=== PATIENT | male | born 1965 | race Caucasian/White ===

== ENCOUNTER 2016-08-16 21:50 | Emergency (ER) | payer OTHER ==
[~2016-08-16] VITALS: Ht 172.7 cm; Wt 124.7 kg
[~2016-08-16 21:50] MED LIST: ASCA500 PO; ASPCH81 PO; CRAN1CAP15 PO; GLC500 PO; LEVO50TA PO; LISI40TA PO; MULT-506 PO; SIMV20TA2 PO
[2016-08-16 21:53] VITALS: TEMP 36.8; Ht 172.7 cm; Wt 124.7 kg
[2016-08-16] MEDS ORDERED: SODIUM CHLORIDE 0.9% 500ML 500 ML IV STA (22:18)
[2016-08-16] MEDS ORDERED: AMLO-110 PO (22:21)
[2016-08-16] MEDS ORDERED: METF-384 PO (22:21)
--- NOTE | 2016-08-16 22:23 | EMERGENCY ROOM VISIT NOTE ---
History First contact with patient: 21:59 Chief Complaint: HEMATURIA Stated Complaint: UNABLE TO VOID W/O CATHETER, DARK BLOOD IN URINE History of Present Illness The patient is a 51 year old male who presents to the Emergency Department by private vehicle for evaluation of a possible urinary tract infection. Patient reports a history of bladder issues secondary to diagnosis of diabetes. He follows with urology at [facility]. He reports that he self caths daily to help void his bladder completely. He reports that today he had 2 episodes of diarrhea while at work. He had some mild chills. He attempted to self cath this evening approximately 8 PM and had very dark urine as well as gianna blood. He was concerned as this is consistent with a previous episode of UTI. The patient rates his current discomfort as 4/10. He denies any fevers, headaches, dizziness, lightheadedness, chest pain, palpitations, shortness of breath, abdominal pain, hematochezia, or melena. Review of Systems A complete 10-point Review of Systems was discussed with the patient, with pertinent positives and negatives listed in the History of Present Illness. All remaining Review of Systems questions can be considered negative unless otherwise specified. Social History Smoking Status: Never Smoker Smokeless Tobacco Use: No Drug Use: none Marital Status: Occupation Status: employed Current/Historical Medications Scheduled Amlodipine (Norvasc), 5 MG PO DAILY Aspirin (Aspirin Tab-Chewable *), 81 MG PO DAILY Ciprofloxacin Hcl (Cipro), 500 MG PO BID Levothyroxine Sodium (Synthroid), 50 MCG PO DAILY Lisinopril (Zestril), 40 MG PO DAILY Metformin Hcl (Glucophage), 1,000 MG PO BID Simvastatin (Zocor), 20 MG PO HS Allergies Coded Allergies: No Known Allergies (Unverified , 08/16/16) Physical Exam Vital Signs Date Time Temp Pulse Resp B/P Pulse Ox O2 Delivery O2 Flow Rate FiO2 08/17/16 01:47 100 18 130/89 97 Room Air 08/16/16 23:50 102 20 138/99 96 Room Air 08/16/16 21:53 36.8 118 18 144/85 98 Room Air Pain Rating (0-10): 4 Physical Exam VITAL SIGNS - Vital signs and nursing notes were reviewed. GENERAL - 51-year-old male appearing his stated age who is in no acute distress. Communicates well with provider and answers questions appropriately. LUNGS - Chest wall symmetric without accessory muscle use, intercostals retractions, or central cyanosis. Normal vesicular breath sounds CTA B/L. No wheezes, rales, or rhonchi appreciated. CARDIAC - RRR with S1/S2. No murmur, rubs, or gallops appreciated. ABDOMEN - Abdominal contour obese and without pulsations or visible masses. BS normoactive all four quadrants. No tenderness to palpation appreciated throughout. No guarding. No Rebound Tenderness. Negative Rovsing's. Negative Prabhakar's. No palpable masses, hepatosplenomegaly, or ascites noted. PSYCH - A&Ox3 and cooperates fully with examiner. Pt is very pleasant and interacts well with examiner. Medical Decision & Procedures Laboratory Results 08/16/16 22:52 Red Blood Count 4.34, Mean Corpuscular Volume 85.5, Mean Corpuscular Hemoglobin 29.0, Mean Corpuscular Hemoglobin Concent 34.0, Mean Platelet Volume 10.1, Neutrophils (%) (Auto) 80.8, Lymphocytes (%) (Auto) 12.3, Monocytes (%) (Auto) 5.0, Eosinophils (%) (Auto) 0.7, Basophils (%) (Auto) 0.1, Neutrophils # (Auto) 7.68, Lymphocytes # (Auto) 1.17, Monocytes # (Auto) 0.48, Eosinophils # (Auto) 0.07, Basophils # (Auto) 0.01 08/16/16 22:52 Test 08/16/16 22:52 08/17/16 00:15 White Blood Count 9.51 K/uL (4.8-10.8) Red Blood Count 4.34 M/uL (4.7-6.1) Hemoglobin 12.6 g/dL (14.0-18.0) Hematocrit 37.1 % (42-52) Mean Corpuscular Volume 85.5 fL (80-100) Mean Corpuscular Hemoglobin 29.0 pg (25-34) Mean Corpuscular Hemoglobin Concent 34.0 g/dl (32-36) Platelet Count 201 K/uL (130-400) Mean Platelet Volume 10.1 fL (7.4-10.4) Neutrophils (%) (Auto) 80.8 % Lymphocytes (%) (Auto) 12.3 % Monocytes (%) (Auto) 5.0 % Eosinophils (%) (Auto) 0.7 % Basophils (%) (Auto) 0.1 % Neutrophils # (Auto) 7.68 K/uL (1.4-6.5) Lymphocytes # (Auto) 1.17 K/uL (1.2-3.4) Monocytes # (Auto) 0.48 K/uL (0.11-0.59) Eosinophils # (Auto) 0.07 K/uL (0-0.5) Basophils # (Auto) 0.01 K/uL (0-0.2) RDW Standard Deviation 43.8 fL (36.4-46.3) RDW Coefficient of Variation 13.9 % (11.5-14.5) Immature Granulocyte % (Auto) 1.1 % Immature Granulocyte # (Auto) 0.10 K/uL (0.00-0.02) Anion Gap 12.0 mmol/L (3-11) Est Creatinine Clear Calc Drug Dose 91.5 ml/min Estimated GFR () 79.5 Estimated GFR (Non- 68.6 BUN/Creatinine Ratio 20.0 (10-20) Calcium Level 8.8 mg/dl (8.5-10.1) Total Bilirubin 0.4 mg/dl (0.2-1) Aspartate Amino Transf (AST/SGOT) 16 U/L (15-37) Alanine Aminotransferase (ALT/SGPT) 31 U/L (12-78) Alkaline Phosphatase 82 U/L (45-117) Total Protein 7.8 gm/dl (6.4-8.2) Albumin 3.9 gm/dl (3.4-5.0) Globulin 3.9 gm/dl (2.5-4.0) Albumin/Globulin Ratio 1.0 (0.9-2) Urine Color YELLOW Urine Appearance CLOUDY (CLEAR) Urine pH 5.0 (4.5-7.5) Urine Specific [place] 1.002 (1.000-1.030) Urine Protein 2+ (NEG) Urine Glucose (UA) NEG (NEG) Urine Ketones NEG (NEG) Urine Occult Blood 3+ (NEG) Urine Nitrite NEG (NEG) Urine Bilirubin NEG (NEG) Urine Urobilinogen NEG (NEG) Urine Leukocyte Esterase MODERATE (NEG) Urine WBC (Auto) >30 /hpf (0-5) Urine RBC (Auto) 5-10 /hpf (0-4) Urine Hyaline Casts (Auto) 5-10 /lpf (0-5) Urine Epithelial Cells (Auto) 0-5 /lpf (0-5) Urine Bacteria (Auto) NEG (NEG) Urine Pathogenic Casts 0-3 WBC CASTS /lpf (0) Medications Administered Medications (Trade) Dose Ordered Sig/Blade Route Start Time Stop Time Status Last Admin Dose Admin Sodium Chloride (Nss 500ml) 500 ml @ 999 mls/hr Q31M STAT IV 08/16/16 22:18 08/16/16 22:48 DC 08/16/16 23:16 999 MLS/HR Ciprofloxacin (Cipro Tab) 500 mg NOW STAT PO 08/17/16 01:31 08/17/16 01:32 DC 08/17/16 01:44 500 MG Ciprofloxacin (Cipro 500MG Home Pack) 1 homepack UD ONCE PO 08/17/16 01:45 08/17/16 01:46 DC 08/17/16 01:44 1 HOMEPACK ED Course Patient was seen and evaluated by myself. Labs were drawn, saline lock in place. The patient was hydrated with a 500 mL normal saline bolus. Laboratory results demonstrate no acute leukocytosis, significant anemia, or bandemia. The patient has no significant electrolyte abnormalities. Urinalysis concerning for UTI and blood. The patient was treated with oral Cipro. He was encouraged to follow-up with his urologist from today's visit. He was educated on worrisome symptoms for return visit to the emergency department. Patient discharged home afebrile and in good condition. Medical Decision Given the patient's presentation and stated complaint, I did elect to perform the above-mentioned workup. The patient complains of dark urine with mild hematuria. He self caths daily. He has no pain. He has no fever leukocytosis. He has no abdominal discomfort or tenderness to palpation. Urinalysis concerning for possible infection from catheter specimen. Patient was treated with oral Cipro. Urine culture is pending. The patient will follow -up with his urologist from today's visit. He'll return for any changing/ worsening symptoms. Patient discharged home afebrile and in good condition. In the evaluation and treatment of this patient, the following differential diagnoses were considered: Bladder Cancer, Chlamydial Genitourinary Infection, Cystitis, Herpes Simplex, Interstitial Cystitis, Pyelonephritis, Urethritis. Impression Primary Impression: Urinary tract infection associated with catheterization of urinary tract Departure Information Dispostion Home / Self-Care Condition GOOD Prescriptions Ciprofloxacin Hcl (CIPRO) 500 Mg Tab 500 MG PO BID for 10 Days, #20 TAB Prov: Deyvi Mason PA-C 08/17/16 Referrals Gianna Altamirano M.D. (PCP) Patient Instructions My [facility], UTI Additional Instructions You have been treated in the Emergency Department for a Urinary Tract Infection (UTI). You have been prescribed Cipro to be taken as prescribed. This is an antibiotic. All antibiotics have the potential to cause diarrhea. Stop this medication and contact a medical provider if you were to develop any significant adverse side effects including: wheezing, shortness of breath, passing out, vomiting, or a diffuse rash. Always take antibiotics as directed and COMPLETE the ENTIRE course regardless of the improvement of your symptoms. Drink plenty of water and stay well hydrated. As with any trip to the Emergency Department, you should follow-up with your Primary Care Provider from today's visit. Return to the emergency department if your symptoms persist despite treatment plan outlined above or if the following symptoms occur: increased fevers, chills , low back pain, nausea/vomiting, or blood in your urine. Problem Qualifiers Primary Impression: Urinary tract infection associated with catheterization of urinary tract Indwelling urinary catheter type: unspecified Encounter type: initial encounter Qualified Codes: T83.511A - Infection and inflammatory reaction due to indwelling urethral catheter, initial encounter; N39.0 - Urinary tract infection, site not specified
[2016-08-16 23:10] LABS: BASO % 0.1 %; BASO ABS # 0.01 K/uL (0-0.2); COMPLETE YES; EOS % 0.7 %; HEMATOCRIT 37.1 % (42-52); IG% 1.1 %; LYMPH % 12.3 %; LYMPH ABS # 1.17 K/uL (1.2-3.4); MEAN CELL VOLUME 85.5 fL (80-100); MEAN PLATELET VOLUME 10.1 fL (7.4-10.4); NEUT % 80.8 %; PLATELET COUNT 201 K/uL (130-400); RED BLOOD COUNT 4.34 M/uL (4.7-6.1); WHITE BLOOD COUNT 9.51 K/uL (4.8-10.8)
[2016-08-16 23:27] LABS: CALCIUM 8.8 mg/dl (8.5-10.1); CREATININE 1.2 mg/dl (0.60-1.40); POTASSIUM 4.4 mmol/L (3.5-5.1)
[2016-08-17 01:02] LABS: URINE APPEARANCE CLOUDY (CLEAR); URINE BILIRUBIN NEG (NEG); URINE COLOR YELLOW; URINE EPITHELIAL CELL AUTO 0-5 /lpf (0-5); URINE NITRITE NEG (NEG); URINE SPECIFIC GRAVITY 1.002 (1.000-1.030); UROBILINOGEN NEG (NEG); ZZURINE CULT IF INDIC CATH YES
[2016-08-17 01:04] LABS: MANUAL MICROSCOPIC REQUIRED? NO; REVIEW REQ? YES
[2016-08-17 01:26] LABS: URINE PATH CASTS 0-3 WBC CASTS /lpf (0)
[2016-08-17] MEDS ORDERED: CIPROFLOXACIN 500 MG TAB PO STA (01:31)
[2016-08-17] MEDS ORDERED: CIPR-255 PO (01:43)
[2016-08-17] MEDS ORDERED: CIPROFLOXACIN 500MG HOME PACK PO ONE (01:45)
[2016-08-17 01:47] VITALS: BP 130/89; PULSE 100; O2SAT 97
--- NOTE | 2016-08-20 11:36 | Pharmacy Progress Note ---
ED Pharmacist Culture FollowUp Date of Service: Aug 20, 2016. Patient was sent home with a prescription for Ciprofloxacin 500mg PO BID x 10 days for complicated UTI, which should cover the Klebsiella oxytoca growing from the patient's URINE culture. No action required.
== END 2016-08-17 01:57 | disposition home or self-care (01) ==
LOC: C.EDB 21:51
DX: T83.511A Infection and inflammatory reaction due to indwelling urethral catheter, initial encounter (principal); Z79.82 Long term (current) use of aspirin; Z79.899 Other long term (current) drug therapy; R19.7 Diarrhea, unspecified; Y84.6 Urinary catheterization as the cause of abnormal reaction of the patient, or of later complication, without mention of misadventure at the time of the procedure

== ENCOUNTER 2016-08-19 23:56 | Emergency (ER) | payer OTHER ==
[~2016-08-19] VITALS: Ht 172.7 cm; Wt 121.4 kg
[~2016-08-19 23:56] MED LIST changes: +AMLO-110 PO; -ASCA500 PO; +CIPR-255 PO; -CRAN1CAP15 PO; -GLC500 PO; +METF-384 PO; -MULT-506 PO
[2016-08-20 00:02] VITALS: TEMP 36.8; Ht 172.7 cm; Wt 121.4 kg
[2016-08-20] MEDS ORDERED: ASPCH81X PO (00:07)
[2016-08-20] MEDS ORDERED: SODIUM CHLORIDE 0.9% 500ML 500 ML IV STA (00:17)
[2016-08-20] MEDS ORDERED: CEFTRIAXONE SOD INJ 1 GM ADDVIAL IV STA (00:17)
[2016-08-20 00:45] LABS: BASO % 0.3 %; BASO ABS # 0.03 K/uL (0-0.2); COMPLETE YES; EOS % 2.1 %; IG% 1.3 %; LYMPH % 13.7 %; MEAN CELL VOLUME 85.7 fL (80-100); MEAN CORPUSCULAR HEMOGLOBIN 29.5 pg (25-34); MEAN CORPUSCULAR HGB CONC 34.4 g/dl (32-36); MEAN PLATELET VOLUME 9.5 fL (7.4-10.4); MONO % 7.2 %; NEUT % 75.4 %; PLATELET COUNT 240 K/uL (130-400); RED BLOOD COUNT 4.55 M/uL (4.7-6.1); WHITE BLOOD COUNT 10.23 K/uL (4.8-10.8)
[2016-08-20 01:02] LABS: BUN/CREATININE RATIO 16.3 (10-20); CALCIUM 9.2 mg/dl (8.5-10.1); CREATININE 1.2 mg/dl (0.60-1.40); POTASSIUM 4.2 mmol/L (3.5-5.1)
[2016-08-20 01:22] LABS: MANUAL MICROSCOPIC REQUIRED? NO; REVIEW REQ? NO; URINE APPEARANCE CLOUDY (CLEAR); URINE BILIRUBIN NEG (NEG); URINE COLOR YELLOW; URINE NITRITE NEG (NEG); URINE PH 6.5 (4.5-7.5); URINE SPECIFIC GRAVITY 1.019 (1.000-1.030); UROBILINOGEN NEG (NEG); ZZURINE CULT IF INDIC CATH NO
[2016-08-20] MEDS ORDERED: SEPTRA DS HOME PACK 1 EA VIAL PO ONE (01:30)
--- NOTE | 2016-08-20 01:30 | EMERGENCY ROOM VISIT NOTE ---
History First contact with patient: 00:06 Chief Complaint: URINARY SYMPTOMS Stated Complaint: URINARY SYMPTOMS STILL OCCURRING FROM PREV VISIT Nursing Triage Summary: Pt reports he was here Friday and dx with UTI. Pt self cath's and when he cathed today it was dark and he noticed blood. History of Present Illness The patient is a 51 year old male who presents to the Emergency Room with complaints of urinary problems that are getting worse since starting Cipro 3 days ago for UTI. He has had Cipro a few times in the past for recurrent bladder infections. Patient does urinate but also has to self cath. Patient states the antibiotic is giving him some diarrhea. Blood sugar was 96 today. Patient denies chest pain, dyspnea, fever, back pain, nausea, vomiting, light headedness or dizziness. He is tolerating by mouth fluids and food. Patient has appointment this with urology for his symptoms by his PCP. He cannot recall the person's name. Review of Systems See HPI for pertinent positives & negatives. A total of 10 systems reviewed and were otherwise negative. Past Medical/Surgical History Diabetes Social History Smoking Status: Unknown if Ever Smoked Drug Use: none Marital Status: Occupation Status: employed Current/Historical Medications Scheduled Amlodipine (Norvasc), 5 MG PO DAILY Aspirin (Aspirin Chewable), 81 MG PO DAILY Ciprofloxacin Hcl (Cipro), 500 MG PO BID Levothyroxine Sodium (Synthroid), 50 MCG PO DAILY Lisinopril (Zestril), 40 MG PO DAILY Metformin Hcl (Glucophage), 1,000 MG PO BID Simvastatin (Zocor), 20 MG PO HS Allergies Coded Allergies: No Known Allergies (Unverified , 08/16/16) Physical Exam Vital Signs Date Time Temp Pulse Resp B/P Pulse Ox O2 Delivery O2 Flow Rate FiO2 08/20/16 00:02 36.8 111 18 142/91 97 Room Air Physical Exam VITALS: Vitals are noted on the nurse's note and reviewed by myself. Vital signs tachycardic GENERAL: Pleasant male, in no acute distress, nondiaphoretic, well-developed well-nourished. SKIN: Capillary reflex less than 2 seconds. HEENT: Normocephalic. PERRLA. EOMI. Nares patent. Mucous membranes moist. Neck is supple without nuchal rigidity. HEART: Regular rate and rhythm LUNGS: Clear to auscultation bilaterally without wheezes, rales or rhonchi. No retractions or accessory muscle use. ABDOMEN: Positive bowel sounds x 4. Normal tympanic percussion. Soft, protuberant, obese, mild bladder tenderness and all other quadrants are nontender, without masses or organomegaly. Prabhakar sign negative. No guarding or rebound tenderness. No CVA tenderness MUSCULOSKELETAL: No gross musculoskeletal defects. . No calf tenderness. NEURO: Patient was alert and oriented to person place and time. Normal sensation to light and sharp touch. No focal neurological deficits. Medical Decision & Procedures Laboratory Results 08/20/16 00:30 Red Blood Count 4.55, Mean Corpuscular Volume 85.7, Mean Corpuscular Hemoglobin 29.5, Mean Corpuscular Hemoglobin Concent 34.4, Mean Platelet Volume 9.5, Neutrophils (%) (Auto) 75.4, Lymphocytes (%) (Auto) 13.7, Monocytes (%) (Auto) 7.2, Eosinophils (%) (Auto) 2.1, Basophils (%) (Auto) 0.3, Neutrophils # (Auto) 7.72, Lymphocytes # (Auto) 1.40, Monocytes # (Auto) 0.74, Eosinophils # (Auto) 0.21, Basophils # (Auto) 0.03 08/20/16 00:30 Test 08/20/16 00:30 08/20/16 00:45 White Blood Count 10.23 K/uL (4.8-10.8) Red Blood Count 4.55 M/uL (4.7-6.1) Hemoglobin 13.4 g/dL (14.0-18.0) Hematocrit 39.0 % (42-52) Mean Corpuscular Volume 85.7 fL (80-100) Mean Corpuscular Hemoglobin 29.5 pg (25-34) Mean Corpuscular Hemoglobin Concent 34.4 g/dl (32-36) Platelet Count 240 K/uL (130-400) Mean Platelet Volume 9.5 fL (7.4-10.4) Neutrophils (%) (Auto) 75.4 % Lymphocytes (%) (Auto) 13.7 % Monocytes (%) (Auto) 7.2 % Eosinophils (%) (Auto) 2.1 % Basophils (%) (Auto) 0.3 % Neutrophils # (Auto) 7.72 K/uL (1.4-6.5) Lymphocytes # (Auto) 1.40 K/uL (1.2-3.4) Monocytes # (Auto) 0.74 K/uL (0.11-0.59) Eosinophils # (Auto) 0.21 K/uL (0-0.5) Basophils # (Auto) 0.03 K/uL (0-0.2) RDW Standard Deviation 43.2 fL (36.4-46.3) RDW Coefficient of Variation 13.8 % (11.5-14.5) Immature Granulocyte % (Auto) 1.3 % Immature Granulocyte # (Auto) 0.13 K/uL (0.00-0.02) Anion Gap 12.0 mmol/L (3-11) Est Creatinine Clear Calc Drug Dose 90.2 ml/min Estimated GFR () 79.5 Estimated GFR (Non- 68.6 BUN/Creatinine Ratio 16.3 (10-20) Calcium Level 9.2 mg/dl (8.5-10.1) Urine Color YELLOW Urine Appearance CLOUDY (CLEAR) Urine pH 6.5 (4.5-7.5) Urine Specific [place] 1.019 (1.000-1.030) Urine Protein 3+ (NEG) Urine Glucose (UA) NEG (NEG) Urine Ketones NEG (NEG) Urine Occult Blood 3+ (NEG) Urine Nitrite NEG (NEG) Urine Bilirubin NEG (NEG) Urine Urobilinogen NEG (NEG) Urine Leukocyte Esterase TRACE (NEG) Urine WBC (Auto) 1-5 /hpf (0-5) Urine RBC (Auto) >30 /hpf (0-4) Urine Hyaline Casts (Auto) 1-5 /lpf (0-5) Urine Epithelial Cells (Auto) 10-20 /lpf (0-5) Urine Bacteria (Auto) NEG (NEG) Medications Administered Medications (Trade) Dose Ordered Sig/Blade Route Start Time Stop Time Status Last Admin Dose Admin Ceftriaxone Sodium 1 gm 1 gm NOW STAT IV 08/20/16 00:17 08/20/16 00:19 DC 08/20/16 00:49 1 GM Sodium Chloride (Nss 500ml) 500 ml @ 999 mls/hr Q31M STAT IV 08/20/16 00:17 08/20/16 00:47 DC 3/7/17 00:48 999 MLS/HR ED Course Prior records reviewed and summarized as above. Triage Nursing notes reviewed. The patient's history was concerning for urinary problems. Differential diagnosis: Etiologies such as UTI, pyelonephritis, urinary retention, urinary obstruction, renal colic, as well as others were entertained.. Physical examination: As above ER treatment provided: Bladder scan showed 150 mL's Rocephin, IV fluids On reassessment the patient felt better. Diagnostics interpreted by me: The labs revealed no worrisome leukocytosis. Mild hyperglycemia without DKA. Urine concerning for infection Pending urine culture shows gram-negative bacilli This appears to be UTI. Patient has had progressive symptoms despite being on antibiotics. He might have some resistance to Cipro. He was placed on Bactrim. He was advised to follow-up as scheduled with urology this week. Urine culture is still pending. He was given Rocephin in the ER. He is afebrile and nontoxic. No CVA tenderness. He was advised drink plenty of fluids and to follow-up family care in a few days or here in the ER sooner for back pain, fevers, vomiting, worsening signs or symptoms or as needed. He was advised to continue self cath. By the evaluation outlined above emergent etiologies such as pyelonephritis, renal colic, as well as others were deemed relatively unlikely. The pt informed about the findings as listed above. All questions were answered and pleased with the treatment. Return instructions were outlined and the patient was discharged in stable condition. Outpatient prescription management: Bactrim Referral: The patient was referred back to primary care physician for follow-up in 2 to 3 days for a recheck of the current condition. Case reviewed with my attending Medical Decision As above Impression Primary Impression: Urinary tract infection Departure Information Dispostion Home / Self-Care Condition GOOD Referrals Adalid Altamirano M.D. (PCP) Patient Instructions My [facility] Additional Instructions Keep your appointment as scheduled with urology. Stop the Cipro. Trimethoprim-Sulfamethoxazole(Bactrim DS): Take one pill twice daily for 7 days for your urine infection. All antibiotics can cause diarrhea. If this occurs and you feel worse or it does not resolve in 1-2 days follow up with your doctor or return to the Emergency Department as this could be signs of serious underlying problems. Any medication can cause an allergic reaction, stop the pills immediately and return to the ER for rash, hives, breathing difficulties, or swelling. Acetaminophen(Tylenol) may be used for fever or pain. Use 1000mg every six hours as needed. Avoid using more than 3000mg in a 24 hour period. Rest and drink plenty of fluids as tolerated. Slow sips of water or sports drinks are recommended instead of large amounts all at once. Continue current medications. Once your stomach is settled start with a clear liquid diet (jello, soup broth, etc.) and then advance as tolerated. You should avoid full, heavy meals for about 24 hrs from the time your symptoms resolved. Return to the ER immediately for worsening or persistent abdominal/back pain, vomiting, fevers, worsening of your condition, or as needed. Follow up with your primary physician and urology within 2-3 days for a recheck of the current condition. Problem Qualifiers Primary Impression: Urinary tract infection Urinary tract infection type: acute cystitis Hematuria presence: with hematuria Qualified Codes: N30.01 - Acute cystitis with hematuria
[2016-08-20] MEDS ORDERED: SULF800T23 PO (01:31)
[2016-08-20 01:32] VITALS: BP 141/94; PULSE 100; O2SAT 97
== END 2016-08-20 01:38 | disposition home or self-care (01) ==
LOC: EDUNIT# 23:56 → C.EDB 23:58
DX: N39.0 Urinary tract infection, site not specified (principal); E11.9 Type 2 diabetes mellitus without complications

== ENCOUNTER → 2016-09-09 | Outpatient (CLI) | payer OTHER ==
[~2016-09-09] MED LIST changes: -ASPCH81 PO; +ASPCH81X PO
[2016-09-09 12:40] LABS: ESTIMATED AVERAGE GLUCOSE 194 mg/dl; HA1C FLAG Normal (Normal)
[2016-09-09 13:09] LABS: BLOOD UREA NITROGEN 21 mg/dl (7-18); BUN/CREATININE RATIO 19.4 (10-20); CARBON DIOXIDE 29 mmol/L (21-32); CHLORIDE 104 mmol/L (98-107); GLUCOSE 226 mg/dl (70-99); POTASSIUM 4.7 mmol/L (3.5-5.1); SODIUM 138 mmol/L (136-145)
== END | disposition home or self-care (01) ==
LOC: C.LABPBG 08:28
PROVIDERS: ATTEND Internal Medicine Geriatric Medicine
DX: E03.9 Hypothyroidism, unspecified (principal); I10 Essential (primary) hypertension; E78.5 Hyperlipidemia, unspecified

== ENCOUNTER → 2016-12-13 | Outpatient (CLI) | payer OTHER | END | disposition home or self-care (01) | LOC: C.LABPBG 14:55 | PROVIDERS: ATTEND Internal Medicine Geriatric Medicine | DX: E03.9 Hypothyroidism, unspecified (principal) ==

== ENCOUNTER 2017-08-14 16:59 | Inpatient (IN) | payer OTHER ==
[~2017-08-14] VITALS: Ht 172.7 cm; Wt 116.7 kg
[2017-08-14] VITALS (12 sets, daily range): BP systolic 72–106; BP diastolic 42–53; PULSE 115–122; TEMP 37.7; O2SAT 91–100; BMI 37.8
[~2017-08-14 16:59] MED LIST changes: -AMLO-110 PO; -METF-384 PO
[2017-08-14] MEDS ORDERED: SODIUM CHLORIDE 0.9% 1000ML 1,000 ML IV STA (17:21)
[2017-08-14] MEDS ORDERED: NovoLIN-R INSULIN PER UNIT CHARGE IV STA (17:53)
[2017-08-14] MEDS ORDERED: INSULIN IV INFUSION PROTOCOL STA ×2 (17:53→19:35)
[2017-08-14] MEDS ORDERED: CALCIUM GLUCONATE 10% 10 ML VIAL IV STA ×2 (17:53→18:55)
[2017-08-14 17:59] LABS: ISTAT CREATININE 4.3 mg/dl (0.6-1.3); ISTAT IONIZED CALCIUM < 0.25 mmol/l (1.12-1.32); ISTAT POTASSIUM 6.4 mEq/L (3.3-5.0); ISTAT SODIUM 133 mEq/L (135-144)
[2017-08-14] MEDS ORDERED: DKA GOAL RANGE 150-250 mg/dl 1 EA ONE ×2 (18:00→19:45)
[2017-08-14] MEDS ORDERED: SEVERE STRESS LEVEL ONE (18:00)
--- NOTE | 2017-08-14 18:06 | DIAGNOSTIC IMAGING REPORT ---
CHEST ONE VIEW PORTABLE CLINICAL HISTORY: 52 years-old Male presenting with fever. TECHNIQUE: Portable upright AP view of the chest was obtained. COMPARISON: None. FINDINGS: Cardiac silhouette enlarged allowing for portable technique. Mildly low lung volumes and hypoventilatory changes. No focal opacity. No large effusion or pneumothorax. Osseous structures normal. Upper abdomen normal. IMPRESSION: 1. Mildly low lung volumes with hypoventilatory changes. No focal infiltrate to suggest pneumonia. Electronically signed by: Serge Nicole M.D. 08/14/2017 6:05 PM Dictated Date/Time: 08/14/2017 6:03 PM
[2017-08-14] MEDS ORDERED: GLIM1TAB2 PO (18:13)
[2017-08-14] MEDS ORDERED: IBUP-1050 PO (18:13)
[2017-08-14] MEDS ORDERED: GLUCOSE 10 TABS/TUBE PO PRN (18:15)
[2017-08-14] MEDS ORDERED: NovoLIN R BOLUS FROM BAG IV ONE (18:15)
[2017-08-14] MEDS ORDERED: INSULIN REGULAR 250 UNITS in SODIUM CHLORIDE 0.9% 250ML 250 ML IV SCH (18:15)
[2017-08-14] MEDS ORDERED: GLUCOSE 40% GEL 15 GM TUBE PO PRN (18:15)
[2017-08-14] MEDS ORDERED: GLUCAGON FOR INJ 1 MG VIAL SQ PRN (18:15)
[2017-08-14] MEDS ORDERED: DEXTROSE 50% 50 ML SYR IV PRN (18:15)
[2017-08-14 18:44] LABS: ALBUMIN 3.3 gm/dl (3.4-5.0); ALKALINE PHOSPHATASE 132 U/L (45-117); ALT/SGPT 92 U/L (12-78); AST/SGOT 33 U/L (15-37); BLOOD UREA NITROGEN 85 mg/dl (7-18); CALCIUM 8.5 mg/dl (8.5-10.1); CARBON DIOXIDE 21 mmol/L (21-32); CKMB 0.5 ng/ml (0.5-3.6); CREATININE 5.05 mg/dl (0.60-1.40); GLUCOSE 1359 mg/dl (70-99); POTASSIUM 6.8 mmol/L (3.5-5.1); SODIUM 125 mmol/L (136-145); TOTAL PROTEIN 7.8 gm/dl (6.4-8.2)
--- NOTE | 2017-08-14 18:53 | DIAGNOSTIC IMAGING REPORT ---
ABD/PELVIS NO IV OR ORAL CONT CLINICAL HISTORY: 52 years-old Male presenting with abd pain . TECHNIQUE: Multidetector CT of the abdomen and pelvis was performed without the use of intravenous contrast. IV contrast: None. A dose lowering technique was used consistent with the principles of ALARA (as low as reasonably achievable). COMPARISON: None. CT DOSE (mGy.cm): The estimated cumulative dose is 1663.81 mGy.cm. FINDINGS: Gradall Operator topogram: Total right hip arthroplasty and right acetabular fixation. Lung bases: Minimal basilar opacities, likely atelectasis. Normal heart size. No pericardial or pleural effusion. Liver: Enlarged. Density consistent with hepatic steatosis. Biliary: No gross biliary ductal dilatation allowing for noncontrast technique. Normal gallbladder. Pancreas: Moderate parenchymal atrophy. Spleen: Normal noncontrast appearance. Adrenal glands: Normal noncontrast appearance. Kidneys and ureters: Left greater than right perinephric fat stranding. No nephrolithiasis. No hydronephrosis. Fullness of the upper pole the left kidney. At this site, there is the greatest degree of perinephric fat stranding. Right ureter takes a medial retrocaval course. Normal left ureter. Bladder: Circumferential bladder wall thickening. Pelvic organs: Prostate enlargement likely secondary to benign prostatic hyperplasia. Calcification of the vas deferentia could imply diabetes. Bowel: Mild stool burden. Fluid in the colon suggests a diarrheal state. The appendix is normal. No bowel obstruction. Peritoneal cavity: No free fluid or intraperitoneal gas. Lymph nodes: No gross lymphadenopathy allowing for noncontrast technique. Vasculature: Atherosclerosis of the normal caliber abdominal aorta. Abdominal wall: Postsurgical changes of the right upper quadrant abdominal wall with atrophy of the right rectus abdominis. Fat-containing umbilical hernia. Musculoskeletal: Degenerative changes of the spine. Total right hip arthroplasty. Screw fixation of the superior acetabulum on the right. IMPRESSION: 1. Hepatomegaly and severe hepatic steatosis. Correlate with liver function tests to exclude steatohepatitis as a cause for abdominal pain. 2. Slight asymmetric fullness and inflammatory change at the upper pole of the left kidney. This is incompletely characterized without intravenous contrast. Differential considerations include normal variant, lobar nephronia/focal chuck nephritis, or underlying neoplasm. Dedicated contrast enhanced CT imaging of the kidneys recommended, which could be obtained on an outpatient basis. 3. Circumferential bladder wall thickening could suggest chronic bladder outlet obstruction in the setting of prostatomegaly. 4. Mild stool burden with fluid in the colon possibly suggesting a diarrheal state. Electronically signed by: Serge Nicole M.D. 08/14/2017 6:52 PM Dictated Date/Time: 08/14/2017 6:42 PM
[2017-08-14] MEDS ORDERED: SODIUM BICARB 8.4% INJ 50 MEQ/50 ML SYR IV STA (18:55)
[2017-08-14] MEDS ORDERED: PIPERACILLIN/TAZOBACTAM 4.5 GM/100ML D5W IV STA (18:56)
[2017-08-14] MEDS ORDERED: SODIUM CHLORIDE 0.9% 1000ML 2,000 ML IV STA (18:57)
[2017-08-14] MEDS ORDERED: INSULIN ASPART 100 UNITS/ML 3 ML PEN SC SCH ×2 (19:00→21:00)
[2017-08-14] MEDS ORDERED: CEFEPIME IV 2,000 MG in SYRINGE 7.5 ML IV ONE (19:15)
[2017-08-14] MEDS ORDERED: HYDROmorphone HCL 2 MG TAB PO PRN (19:45)
[2017-08-14] MEDS ORDERED: LORAZEPAM 0.5 MG TAB PO PRN (19:45)
[2017-08-14] MEDS ORDERED: ICU PROTOCOL FOR HYPERGLYCEMIA PRN (19:45)
[2017-08-14] MEDS ORDERED: ALUMINUM/MAGNESIUM/SIMETH (MAALOX MAX) 30 ML UDC PO PRN (19:45)
[2017-08-14] MEDS ORDERED: ONDANSETRON INJ 2 MG/ML 2 ML VIAL IV PRN (19:45)
--- NOTE | 2017-08-14 20:29 | History and Physical ---
History & Physical Date & Time of Service: Aug 14, 2017 at 19:53 Chief Complaint: Cardiac-St/Ams/Vomit Primary Care Physician: Adalid Altamirano M.D. History of Present Illness Source: patient, hospital records 52 y/o M Hx DM II, HTN, HPL, hypothyroid. Pt presents following 3 days of nausea, vomiting and diarrhea. He denies abdominal pain, fevers, a productive cough or dysuria. On arrival to the ER he was notably hypotensive. Initial labs are consistent with severe dehydration, DKA, ARF and severe hyperkalemia. He does not normally take insulin. Past Medical/Surgical History 1) HTN 2) HPL 3) DM II 4) Hypothyroid 5) Fatty liver Surgical 1) Required SBO surgery directly after 2) R JEN 2008, revision 2013 Family History Patient reports no known family medical history. 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 Smoking Status: Never Smoker Drug Use: none Marital Status: Occupational Status: employed Allergies Coded Allergies: No Known Allergies (Unverified , 08/16/16) Home Medications Scheduled Amlodipine (Norvasc), 5 MG PO DAILY Aspirin (Aspirin Chewable), 81 MG PO DAILY Glimepiride (Glimepiride), 1 TAB PO DAILY Ibuprofen (Advil), 200 MG PO UD Levothyroxine Sodium (Synthroid), 50 MCG PO DAILY Lisinopril (Zestril), 40 MG PO DAILY Metformin Hcl (Glucophage), 1,000 MG PO BID Simvastatin (Zocor), 20 MG PO HS Review of Systems Constitutional: + weakness, + fatigue, No fever, No chills Eyes: No worsening of vision ENT: No hearing loss, No unusual epistaxis, No nasal symptoms Respiratory: No cough, No sputum, No wheezing Cardiovascular: No chest pain, No orthopnea, No PND Abdomen: + nausea, + vomiting, + diarrhea, No pain Musculoskeletal: No joint pain Genitourinary - Male: No hematuria, No dysuria, No urinary frequency Neurologic: No memory loss, No paralysis, No weakness Psychiatric: No depression symptoms Endocrine: No fatigue Hematologic / Lymphatic: No abnormal bleeding/bruising Integumentary: No rash Allergic / Immunologic: No environmental allergies Physical Exam Vital Signs Date Time Temp Pulse Resp B/P (MAP) Pulse Ox O2 Delivery O2 Flow Rate FiO2 08/14/17 19:47 82/55 08/14/17 19:45 122 22 98 Room Air 08/14/17 19:32 94/48 08/14/17 19:30 112 22 100 Room Air 08/14/17 19:19 107/54 08/14/17 19:17 63/50 08/14/17 19:15 114 19 100 Room Air 08/14/17 19:01 103/46 08/14/17 19:00 117 21 100 Room Air 08/14/17 18:47 115 22 87/59 99 Room Air 08/14/17 18:20 109 18 92/44 98 Room Air 08/14/17 18:02 108 20 95/58 100 Room Air 08/14/17 17:59 114 17 105/60 98 Room Air 08/14/17 17:29 108 21 95/67 95 Room Air 08/14/17 17:13 36.5 116 22 78/52 95 Room Air 08/14/17 17:08 115 08/14/17 17:06 113 22 78/52 94 Room Air General Appearance: + pertinent finding (Overweight, middle-aged male - lethargic - appears to stutter words but is fully oriented) Head: normocephalic Eyes: normal inspection, EOMI ENT: normal ENT inspection, + pertinent finding (dry mucosal membranes) Neck: supple, no JVD Respiratory/Chest: chest non-tender, lungs clear, normal breath sounds Cardiovascular: regular rate, rhythm, no edema, no gallop Abdomen/GI: normal bowel sounds, non tender, soft Back: normal inspection, no CVA tenderness Extremities/Musculoskelatal: normal inspection, normal range of motion Neurologic/Psych: 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, no motor/sensory deficits, alert, oriented x 3, + pertinent finding (Pt is stuttering and sp[eech ids slow - unclear if this is baseline - does not appear to have additional focal deficits) Diagnostics Laboratory Results Results Past 24 Hours Test 08/14/17 17:39 08/14/17 17:44 08/14/17 17:48 08/14/17 17:55 Range/Units Bedside Glucose > 600 70-99 mg/dl Prothrombin Time 10.3 9.0-12.0 SECONDS Prothromb Time International Ratio 1.0 0.9-1.1 Sodium Level 125 136-145 mmol/L Potassium Level 6.8 3.5-5.1 mmol/L Chloride Level 92 98-107 mmol/L Carbon Dioxide Level 21 21-32 mmol/L Anion Gap 14.0 29.0 16-25 mmol/L Blood Urea Nitrogen 85 7-18 mg/dl Creatinine 5.05 0.60-1.40 mg/dl Est Creatinine Clear Calc Drug Dose 20.7 ml/min Estimated GFR () 13.9 Estimated GFR (Non- 12.0 BUN/Creatinine Ratio 16.8 10-20 Random Glucose 1359 70-99 mg/dl Calcium Level 8.5 8.5-10.1 mg/dl Magnesium Level 3.1 1.8-2.4 mg/dl Total Bilirubin 0.5 0.2-1 mg/dl Direct Bilirubin 0.2 0-0.2 mg/dl Aspartate Amino Transf (AST/SGOT) 33 15-37 U/L Alanine Aminotransferase (ALT/SGPT) 92 12-78 U/L Alkaline Phosphatase 132 45-117 U/L Total Creatine Kinase 101 39-308 U/L Creatine Kinase MB 0.5 0.5-3.6 ng/ml Creatine Kinase MB Ratio 0.5 0-3.0 Troponin I < 0.015 0-0.045 ng/ml Total Protein 7.8 6.4-8.2 gm/dl Albumin 3.3 3.4-5.0 gm/dl Beta-Hydroxybutyric Acid 12.95 0.2-2.81 mg/dL Bedside Hemoglobin 14.3 14.0-18.0 g/dl Bedside Hematocrit 42 42-52 % Bedside Sodium 133 135-144 mEq/L Bedside Potassium 6.4 3.3-5.0 mEq/L Bedside Chloride 92 101-112 mEq/L Bedside Total CO2 20 24-31 mEq/l Bedside Blood Urea Nitrogen 92 7-18 mg/dl Bedside Creatinine 4.3 0.6-1.3 mg/dl Bedside Glucose (other) > 700 70-99 mg/dl Bedside Ionized Calcium (Omaira) < 0.25 1.12-1.32 mmol/l Lactic Acid Level 3.5 0.4-2.0 mmol/L Test 08/14/17 18:00 08/14/17 18:24 08/14/17 19:30 08/14/17 19:35 Range/Units Venous Blood pH 7.26 7.36-7.41 Venous Blood Partial Pressure CO2 48 38.0-50.0 mmHg Venous Blood Partial Pressure O2 22 mmHg Venous Blood HCO3 21 mmol/L Venous Blood Oxygen Saturation < 60.0 % Venous Blood Base Excess -6.3 mEq/L Bedside Glucose > 600 70-99 mg/dl Test 08/14/17 19:36 08/14/17 19:50 08/14/17 19:52 Range/Units Microbiology Results 08/14/17 Blood Culture, Received Pending 08/14/17 Blood Culture, Received Pending Diagnostic Radiology CT abdomen: 1. Hepatomegaly and severe hepatic steatosis. Correlate with liver function tests to exclude steatohepatitis as a cause for abdominal pain. 2. Slight asymmetric fullness and inflammatory change at the upper pole of the left kidney. This is incompletely characterized without intravenous contrast. Differential considerations include normal variant, lobar nephronia/focal hilar nephritis, or underlying neoplasm. Dedicated contrast enhanced CT imaging of the kidneys recommended, which could be obtained on an outpatient basis. 3. Circumferential bladder wall thickening could suggest chronic bladder outlet obstruction in the setting of prostatomegaly. 4. Mild stool burden with fluid in the colon possibly suggesting a diarrheal state. EKG Sinus tach Impression Assessment and Plan 52 y/o M Hx DM II, HTN, HPL, hypothyroid. Pt presents following 3 days of nausea, vomiting and diarrhea. He denies abdominal pain, fevers, a productive cough or dysuria. On arrival to the ER he was notably hypotensive. Initial labs are consistent with severe dehydration, DKA, ARF and severe hyperkalemia. He does not normally take insulin. 1) ARF with hyperkalemia - treated with Bicarb, calcium gluc, aggressive IVF. Serial BMPs ordered. Transferred to the ICU for monitoring. 2) DKA - Placed on protocol with insulin drip and will be admitted to the ICU. Will need a new DM regimen going forward due to insulin-dependence. 3) HTN - hypotensive on arrival - likely owing to severe volume depletion - IVF provided - no evidence of sepsis at present. 4) HPL - cont statin 5) Hypothyroid - cont Synthroid 6) Diarrhea/nausea/vomiting - antiemetics provided - will culture stool and assess for C diff. 7) Steatosis - should be advised on diet and improved Glu control in context of slowing process prior to DC. Full code - Heparin prophylaxis Total time for this admit including review of labs, meds, imaging, records - discussion with pt and ER attending 0 critical care time - 40 min Resuscitation Status full VTE Prophylaxis Will order VTE Prophylaxis: Yes
[2017-08-14 20:31] LABS: BASO % 0.1 %; BASO ABS # 0.01 K/uL (0-0.2); EOS % 0.3 %; EOS ABS # 0.02 K/uL (0-0.5); HEMATOCRIT 32.8 % (42-52); HEMOGLOBIN 10.6 g/dL (14.0-18.0); IG# 0.06 K/uL (0.00-0.02); LYMPH % 4.4 %; LYMPH ABS # 0.34 K/uL (1.2-3.4); MEAN CELL VOLUME 87.7 fL (80-100); MEAN CORPUSCULAR HEMOGLOBIN 28.3 pg (25-34); MEAN CORPUSCULAR HGB CONC 32.3 g/dl (32-36); MONO % 5.9 %; MONO ABS # 0.46 K/uL (0.11-0.59); NEUT % 88.5 %; PLATELET COUNT 120 K/uL (130-400); WHITE BLOOD COUNT 7.79 K/uL (4.8-10.8)
[2017-08-14 20:48] LABS: CALCIUM 8.5 mg/dl (8.5-10.1); CREATININE 4.79 mg/dl (0.60-1.40); PHOSPHORUS 6.4 mg/dl (2.5-4.9); POTASSIUM 4.9 mmol/L (3.5-5.1)
--- NOTE | 2017-08-14 21:10 | Critical Care Consultation ---
Critical Care Consultation Date of Consultation: Aug 14, 2017. Attending Physician: Dr. Greg Teresa Reason for Consultation: DKA, Lactic Acidosis and hypotension History of Present Illness Johan Robert is a 52yo male with HTN, Hyperlipidemia, and NIDDM that presented to the ED with 3 days of nausea, vomiting and abdominal pain. Pt states he has had some dry coughing lately but denies fever, chills and myalgias. Pt is lethargic and slow to focus; however, is answering my questions appropriately. Pt was found to have a Na 125, potassium 6.8, Anion Gap 14, BUN 85, Cr 5.05, BSG 1359, Mg 3.1, ALT 92, Alk Phos 132, Albumin 3.3, Beta-Hydroxybutyric Acid 12.95, pH 7.26. Pt was treated with 150ml of sodium bicarb, 8units of Novolin, 1g of Calcium Gluconate, 1 time dose 2g of Cefepime. Pt was placed on insulin infusion. Dr. Larry spoke to the pt in the ed and found he was unable to teach back the risk and benefits for central line and arterial line insertion. Pt was consented emergently for both procedures with Dr. Mckenzie agreeing as the second physician. With the pts permission, I spoke with his ex- who said he was found at home confused and laying in vomitus today after not answering his phone. She said he was having trouble focusing and answering questions. She called 911 and sent him to the hospital. They share a 7yo son. Otherwise, the only remaining next of kin for Mr. Robert is an Aunt. The patient denies weight loss, fever, dizziness, headache, muscle weakness, numbness, change in vision, sore throat, chest pain, palpitations, awareness of tachyarrythmias, leg swelling, shortness of breath, cough, nausea, vomiting, bloody stools, diarrhea, constipation, abdominal pain, other changes in urine or bowel habits. Past Medical/Surgical History Medical Problems: Anemia BPH KIM (acute kidney injury) DKA (diabetic ketoacidoses) Hypothyroidism Hypotension Incisional hernia UTI Diabetes Neurogenic Bladder Hyperlipidemia HTN Tubular adenoma of colon Thyroid Dz Surgical History: Testicular varicoceles status post surgery Appendectomy Total hip Family History Patient reports no known family medical history. Social History Smoking Status: Never Smoker Drug Use: none Marital Status: Occupation Status: employed Allergies Coded Allergies: No Known Allergies (Unverified , 08/16/16) Home Medications Scheduled Amlodipine (Norvasc), 5 MG PO DAILY Aspirin (Aspirin Chewable), 81 MG PO DAILY Glimepiride (Glimepiride), 1 TAB PO DAILY Ibuprofen (Advil), 200 MG PO UD Levothyroxine Sodium (Synthroid), 50 MCG PO DAILY Lisinopril (Zestril), 40 MG PO DAILY Metformin Hcl (Glucophage), 1,000 MG PO BID Simvastatin (Zocor), 20 MG PO HS Current Inpatient Medications Current Inpatient Medications Medications (Trade) Dose Ordered Sig/Blade Route Start Time Stop Time Status Last Admin Dose Admin Insulin Human Regular 250 units/ Sodium Chloride 252.5 ml @ 0 mls/hr Q24H IV 08/14/17 18:15 09/13/17 18:14 08/14/17 18:49 4.4 MLS/HR Insulin Aspart (novoLOG ASPART) SLIDING SCALE HS SC 08/14/17 19:00 09/13/17 18:59 Glucose (Glucose 40% Gel) 15-30 GRAMS 15 GRAMS... UD PRN PO 08/14/17 18:15 09/13/17 18:14 Glucose (Glucose Chew Tab) 4-8 Tablets 4 Tabl... UD PRN PO 08/14/17 18:15 09/13/17 18:14 Dextrose (Dextrose 50% 50ML Syringe) 25-50ML OF 50% DW IV FOR... UD PRN IV 08/14/17 18:15 09/13/17 18:14 Glucagon (Glucagon Inj) 1 mg UD PRN SQ 08/14/17 18:15 09/13/17 18:14 Sodium Chloride 2,000 ml @ 999 mls/hr Q2H1M STAT IV 08/14/17 18:57 08/14/17 20:57 08/14/17 18:57 999 MLS/HR Insulin Aspart (novoLOG ASPART) SLIDING SCALE PCHS SC 08/14/17 21:00 09/13/17 20:59 UNV Miscellaneous (Insulin Protocol Dka Goal Range) 1 ea ONE ONCE N/A 08/14/17 19:45 08/14/17 19:46 UNV Insulin Human Regular (Insulin IV Infusion Protocol) 1 ea NOW STAT N/A 08/14/17 19:35 08/14/17 19:36 UNV Heparin Sodium (Porcine) (Heparin Sq 5000 Unit/0.5ml) 5,000 unit Q8H SQ 08/14/17 19:45 09/13/17 19:44 UNV Acetaminophen (Tylenol Tab) 650 mg Q4H PRN PO 08/14/17 19:45 09/13/17 19:44 UNV Lorazepam (Ativan Tab) 0.5 mg Q4H PRN PO 08/14/17 19:45 09/13/17 19:44 UNV Al Hydrox/Mg Hydrox/Simethicone (Maalox Max Susp) 15 ml Q4H PRN PO 08/14/17 19:45 09/13/17 19:44 UNV Magnesium Hydroxide (Milk Of Magnesia Susp) 30 ml Q12H PRN PO 08/14/17 19:45 09/13/17 19:44 UNV Ondansetron HCl (Zofran Inj) 4 mg Q6H PRN IV 08/14/17 19:45 09/13/17 19:44 UNV Hydromorphone HCl (Dilaudid Tab) 0.5 mg Q4H PRN PO 08/14/17 19:45 08/28/17 19:44 UNV Miscellaneous Information (Icu Protocol For Hyperglycemia) 1 ea PRN PRN N/A 08/14/17 19:45 08/16/17 19:44 UNV Amlodipine Besylate (Norvasc Tab) 5 mg DAILY PO 08/15/17 09:00 09/14/17 08:59 UNV Aspirin (Aspirin Chew) 81 mg DAILY PO 08/15/17 09:00 09/14/17 08:59 UNV Levothyroxine Sodium (Synthroid Tab) 50 mcg DAILY PO 08/15/17 09:00 09/14/17 08:59 UNV Simvastatin (Zocor Tab) 20 mg HS PO 08/14/17 21:00 09/13/17 20:59 UNV Review of Systems 12 systems reviewed and negative other than previously mentioned in the HPI. Physical Exam Date Time Temp Pulse Resp B/P (MAP) Pulse Ox O2 Delivery O2 Flow Rate FiO2 08/14/17 19:47 82/55 08/14/17 19:45 122 22 98 Room Air 08/14/17 19:32 94/48 08/14/17 19:30 112 22 100 Room Air 08/14/17 19:19 107/54 08/14/17 19:17 63/50 08/14/17 19:15 114 19 100 Room Air 08/14/17 19:01 103/46 08/14/17 19:00 117 21 100 Room Air 08/14/17 18:47 115 22 87/59 99 Room Air 08/14/17 18:20 109 18 92/44 98 Room Air 08/14/17 18:02 108 20 95/58 100 Room Air 08/14/17 17:59 114 17 105/60 98 Room Air 08/14/17 17:29 108 21 95/67 95 Room Air 08/14/17 17:13 36.5 116 22 78/52 95 Room Air 08/14/17 17:08 115 08/14/17 17:06 113 22 78/52 94 Room Air Vital Signs - as noted Laboratory Data - as noted Physical Exam: General - NAD, stutters and has a difficult time finding words Eyes - PERRL, EOMI No icterus, gaze conjugate ENT - Mucosa moist, no lesions or candidiasis Neck - Supple, trachea midline, no masses or lymphadenopathy, no JVD or bruits Lungs - No paradoxical chest wall movement, clear to auscultation bilaterally, no wheezes, rales, or rhonchi Heart - Reg rate and rhythm, No murmur, rubs, clicks, or gallops appreciated Abdomen - BS present, no bruits noted, tympanic to percussion, soft, nontender, nondistended, no organomegaly Extremities - No edema, pedal pulses intact Neuro - A&OX2 Strength extremities equal and appropriate bilaterally CN:No focal deficits Laboratory Results Last 24 Hours Test 08/14/17 17:39 08/14/17 17:44 08/14/17 17:48 08/14/17 17:55 Bedside Glucose > 600 mg/dl Prothrombin Time 10.3 SECONDS Prothromb Time International Ratio 1.0 Sodium Level 125 mmol/L Potassium Level 6.8 mmol/L Chloride Level 92 mmol/L Carbon Dioxide Level 21 mmol/L Anion Gap 14.0 mmol/L 29.0 mmol/L Blood Urea Nitrogen 85 mg/dl Creatinine 5.05 mg/dl Est Creatinine Clear Calc Drug Dose 20.7 ml/min Estimated GFR () 13.9 Estimated GFR (Non- 12.0 BUN/Creatinine Ratio 16.8 Random Glucose 1359 mg/dl Calcium Level 8.5 mg/dl Magnesium Level 3.1 mg/dl Total Bilirubin 0.5 mg/dl Direct Bilirubin 0.2 mg/dl Aspartate Amino Transf (AST/SGOT) 33 U/L Alanine Aminotransferase (ALT/SGPT) 92 U/L Alkaline Phosphatase 132 U/L Total Creatine Kinase 101 U/L Creatine Kinase MB 0.5 ng/ml Creatine Kinase MB Ratio 0.5 Troponin I < 0.015 ng/ml Total Protein 7.8 gm/dl Albumin 3.3 gm/dl Beta-Hydroxybutyric Acid 12.95 mg/dL Bedside Hemoglobin 14.3 g/dl Bedside Hematocrit 42 % Bedside Sodium 133 mEq/L Bedside Potassium 6.4 mEq/L Bedside Chloride 92 mEq/L Bedside Total CO2 20 mEq/l Bedside Blood Urea Nitrogen 92 mg/dl Bedside Creatinine 4.3 mg/dl Bedside Glucose (other) > 700 mg/dl Bedside Ionized Calcium (Omaira) < 0.25 mmol/l Lactic Acid Level 3.5 mmol/L Test 08/14/17 18:00 08/14/17 18:24 08/14/17 19:30 08/14/17 19:52 Venous Blood pH 7.26 Venous Blood Partial Pressure CO2 48 mmHg Venous Blood Partial Pressure O2 22 mmHg Venous Blood HCO3 21 mmol/L Venous Blood Oxygen Saturation < 60.0 % Venous Blood Base Excess -6.3 mEq/L Bedside Glucose > 600 mg/dl Urine Color YELLOW Urine Appearance CLOUDY Urine pH 5.0 Urine Specific [place] 1.027 Urine Protein 1+ Urine Glucose (UA) 3+ Urine Ketones TRACE Urine Occult Blood TRACE Urine Nitrite NEG Urine Bilirubin NEG Urine Urobilinogen NEG Urine Leukocyte Esterase SMALL Urine Hyaline Casts (Auto) /lpf Urine RBC 0-4 /hpf Urine WBC 5-10 /hpf Urine Epithelial Cells 10-20 /lpf Urine Renal Epithelial Cells /lpf Urine Amorphous Sediment PRESENT Urine Bacteria NEG Urine Pathogenic Casts /lpf Urine Mucus PRESENT Urine Yeast BUDDING Urine Yeast (Auto) Test 08/14/17 20:00 08/14/17 20:08 Diagnostic Results CHEST ONE VIEW PORTABLE CLINICAL HISTORY: 52 years-old Male presenting with fever. TECHNIQUE: Portable upright AP view of the chest was obtained. COMPARISON: None. FINDINGS: Cardiac silhouette enlarged allowing for portable technique. Mildly low lung volumes and hypoventilatory changes. No focal opacity. No large effusion or pneumothorax. Osseous structures normal. Upper abdomen normal. IMPRESSION: 1. Mildly low lung volumes with hypoventilatory changes. No focal infiltrate to suggest pneumonia. Electronically signed by: Serge Nicole M.D. 08/14/2017 6:05 PM Dictated Date/Time: 08/14/2017 6:03 PM ABD/PELVIS NO IV OR ORAL CONT CLINICAL HISTORY: 52 years-old Male presenting with abd pain . TECHNIQUE: Multidetector CT of the abdomen and pelvis was performed without the use of intravenous contrast. IV contrast: None. A dose lowering technique was used consistent with the principles of ALARA (as low as reasonably achievable). COMPARISON: None. CT DOSE (mGy.cm): The estimated cumulative dose is 1663.81 mGy.cm. FINDINGS: Data Analyst Report Writer topogram: Total right hip arthroplasty and right acetabular fixation. Lung bases: Minimal basilar opacities, likely atelectasis. Normal heart size. No pericardial or pleural effusion. Liver: Enlarged. Density consistent with hepatic steatosis. Biliary: No gross biliary ductal dilatation allowing for noncontrast technique. Normal gallbladder. Pancreas: Moderate parenchymal atrophy. Spleen: Normal noncontrast appearance. Adrenal glands: Normal noncontrast appearance. Kidneys and ureters: Left greater than right perinephric fat stranding. No nephrolithiasis. No hydronephrosis. Fullness of the upper pole the left kidney. At this site, there is the greatest degree of perinephric fat stranding. Right ureter takes a medial retrocaval course. Normal left ureter. Bladder: Circumferential bladder wall thickening. Pelvic organs: Prostate enlargement likely secondary to benign prostatic hyperplasia. Calcification of the vas deferentia could imply diabetes. Bowel: Mild stool burden. Fluid in the colon suggests a diarrheal state. The appendix is normal. No bowel obstruction. Peritoneal cavity: No free fluid or intraperitoneal gas. Lymph nodes: No gross lymphadenopathy allowing for noncontrast technique. Vasculature: Atherosclerosis of the normal caliber abdominal aorta. Abdominal wall: Postsurgical changes of the right upper quadrant abdominal wall with atrophy of the right rectus abdominis. Fat-containing umbilical hernia. Musculoskeletal: Degenerative changes of the spine. Total right hip arthroplasty. Screw fixation of the superior acetabulum on the right. IMPRESSION: 1. Hepatomegaly and severe hepatic steatosis. Correlate with liver function tests to exclude steatohepatitis as a cause for abdominal pain. 2. Slight asymmetric fullness and inflammatory change at the upper pole of the left kidney. This is incompletely characterized without intravenous contrast. Differential considerations include normal variant, lobar nephronia/focal chuck nephritis, or underlying neoplasm. Dedicated contrast enhanced CT imaging of the kidneys recommended, which could be obtained on an outpatient basis. 3. Circumferential bladder wall thickening could suggest chronic bladder outlet obstruction in the setting of prostatomegaly. 4. Mild stool burden with fluid in the colon possibly suggesting a diarrheal state. Electronically signed by: Serge Nicole M.D. 08/14/2017 6:52 PM Dictated Date/Time: 08/14/2017 6:42 PM Assessment & Plan (1) Hyperkalemia (2) Hypotension (3) DKA (diabetic ketoacidoses) (4) KIM (acute kidney injury) Reason Critically Ill: Patient is an 52-year-old male who is transferred to the ICU for DKA, Hyperkalemia, and hypotension of unknown cause. PLAN: Endocrine: * DKA * NIDDM on Metformin and Glimepiride; holding both * Insulin infusion. checks per protocol * 0.45NSS + 20K @ 200mL/hr (Corrected Na at admission 150) * Goal BSG 150 - 250 * Trend PRP, MG, Phos, VBG q 4h Fluids/Renal: * Renal Function improving slowly * Trend PRP q4h * Strict I&Os Neuro: * Dilaudid for pain control when necessary * Neurogenic Bladder, Banuelos in place Resp: * Supplemental oxygen as required * Adequate Saturation on telemetry * Negative CXR CV: * Hypotension: Suspicion of sepsis with unknown etiology * Consent on chart for central line * Goal map 65 or greater * Chicas begin vasopressors if MAP is less than 60 * Monitor fluid status, aggressive hydration secondary to DKA * Troponin negative * Holding home Norvasc * Monitor on telemetry ID: * Abx: will continue cefepime currently * Suspicious of sepsis/infection however patient does not meet definition of SIRS. * Patient afebrile * No leukocytosis * Continue to monitor * Funguria in the setting of neurogenic bladder and self cath'ing * Cultures pending * No treatment indicated currently GI/Nutrition: * Sips and Chips tonight. * Likely to advance diet as Anion Gap closes * Recheck LFTs ALT and Alk Phos Elevated * Lipase WNL Heme: * H&H 10.3/32.8 * Trend CBC * No signs of acute bleeding * DVT Prophylaxis: Heparin SQ in place CCT: 80 Minutes; This time is exclusive of all separately billable procedures. Thank you for involving us in the care of this patient. Please refer to Dr. Jasmeet Larry's addendum for further recommendations. I have personally evaluated and examined this patient. I agree with assessment and plan of Atif Perkins PA-C. Patient was altered during my initial evaluation. I discussed the case with Dr. Mckenzie and we both agreed the patient should proceed with central line given the hypotension and need for vasoactive medication. Two-physician consent performed, emergent consent implied Problem Qualifiers (1) Hypotension: Hypotension type: unspecified hypotension type Qualified Codes: I95.9 - Hypotension, unspecified (2) DKA (diabetic ketoacidoses): Diabetes mellitus type: other specified (including ARTURO) Diabetes mellitus complication detail: without coma Qualified Codes: E13.10 - Other specified diabetes mellitus with ketoacidosis without coma
[2017-08-14] MEDS ORDERED: SODIUM CHLORIDE 0.45% 1000ML 1,000 ML IV SCH (21:45)
[2017-08-14 21:50] LABS: INFLUENZA A PCR Neg for Influ A (NEG); INFLUENZA B PCR Neg for Influ B (NEG)
[2017-08-14] MEDS: INSULIN ASPART 100 UNITS/ML 3 ML PEN SC SCH ×2 (22:11→22:12)
[2017-08-14] MEDS: SIMVASTATIN 20 MG TAB PO SCH (22:12)
[2017-08-14] MEDS ORDERED: METF-384 PO (22:21)
[2017-08-14] MEDS ORDERED: AMLO-110 PO (22:21)
[2017-08-14] MEDS: SODIUM CHLOR 0.45% + 20MEQ KCL 1,000 ML IV SCH (22:35)
[2017-08-14] MEDS: HEPARIN SOD 5000 UNIT/0.5 ML CARP SQ SCH (22:35)
[2017-08-15] VITALS (32 sets, daily range): BP systolic 66–149; BP diastolic 45–96; PULSE 95–118; TEMP 36.8–37.7; O2SAT 92–100; BMI 38.6
[2017-08-15] MEDS ORDERED: METOPROLOL TARTRATE 1 MG/ML VIAL ONE (00:17)
--- NOTE | 2017-08-15 00:17 | EMERGENCY ROOM VISIT NOTE ---
History Report prepared by Sarahibanthony: Emi Cameron Under the Supervision of: Amy SullivanO. First contact with patient: 17:15 Chief Complaint: HYPOTENSION Stated Complaint: CARDIAC-ST/AMS/VOMIT History of Present Illness The patient is a 52 year old male who presents to the Emergency Room with complaints of constant generalized illness beginning three days ago. The patient states his symptoms began with dizziness. He reports nausea, vomiting, abdominal pain, dark stool, and diarrhea. The patient states he has been vomiting about 3 times a day and having 2 episodes of diarrhea a day since his symptoms began. The patient denies any recent antibiotic use. Per nursing, the patient's speech is not at baseline. Pt denies headache, change in vision, fevers, chest pain, shortness of breath, nausea, vomiting, diarrhea, pain with urination, cough, runny nose, or blood in stool. Source of History: patient Onset: three days ago Position: other (generalized) Quality: other (illness) Timing: constant Associated Symptoms: + nausea, + vomiting, + diarrhea Review of Systems See HPI for pertinent positives & negatives. A total of 10 systems reviewed and were otherwise negative. Past Medical & Surgical Medical Problems: (1) KIM (acute kidney injury) (2) DKA (diabetic ketoacidoses) Family History Patient reports no known family medical history. Social History Smoking Status: Unknown if Ever Smoked Drug Use: none Marital Status: Occupation Status: employed Current/Historical Medications Scheduled Amlodipine (Norvasc), 5 MG PO DAILY Aspirin (Aspirin Chewable), 81 MG PO DAILY Glimepiride (Glimepiride), 1 TAB PO DAILY Ibuprofen (Advil), 200 MG PO UD Levothyroxine Sodium (Synthroid), 50 MCG PO DAILY Lisinopril (Zestril), 40 MG PO DAILY Metformin Hcl (Glucophage), 1,000 MG PO BID Simvastatin (Zocor), 20 MG PO HS Allergies Coded Allergies: No Known Allergies (Unverified , 08/16/16) Physical Exam Vital Signs Date Time Temp Pulse Resp B/P (MAP) Pulse Ox O2 Delivery O2 Flow Rate FiO2 08/14/17 19:45 122 22 98 Room Air 08/14/17 19:32 94/48 08/14/17 19:30 112 22 100 Room Air 3/1/18 19:19 107/54 08/14/17 19:17 63/50 08/14/17 19:15 114 19 100 Room Air 08/14/17 19:01 103/46 08/14/17 19:00 117 21 100 Room Air 08/14/17 18:47 115 22 87/59 99 Room Air 08/14/17 18:20 109 18 92/44 98 Room Air 08/14/17 18:02 108 20 95/58 100 Room Air 08/14/17 17:59 114 17 105/60 98 Room Air 08/14/17 17:29 108 21 95/67 95 Room Air 08/14/17 17:13 36.5 116 22 78/52 95 Room Air 08/14/17 17:08 115 08/14/17 17:06 113 22 78/52 94 Room Air Physical Exam GENERAL: Sitting up in bed, alert, ill appearing, well nourished, moderate distress, non-toxic EYE EXAM: normal conjunctiva. PERRL and EOM's grossly intact. OROPHARYNX: no exudate, no erythema, lips, buccal mucosa, and tongue normal and mucous membranes are moist NECK: supple, no nuchal rigidity, no adenopathy, non-tender LUNGS: Diminished breath sounds bilaterally. Normal chest wall mechanics HEART: tachycardic and distant, no murmurs, S1 normal and S2 normal ABDOMEN: Multiple old abdominal incisions on the right. abdomen soft, non-tender , normo-active bowel sounds, no masses, no rebound or guarding. BACK: Back is symmetrical on inspection and there is no deformity, no midline tenderness, no CVA tenderness. SKIN: no rashes and no bruising UPPER EXTREMITIES: upper extremities are grossly normal. LOWER EXTREMITIES: No pitting edema. NEURO EXAM: Awake, alert, follow commands, not oriented to year. cranial nerves II-XII grossly intact, normal speech, no gross weakness of arms, no gross weakness of legs. Gross sensation intact. Medical Decision & Procedures ER Provider Diagnostic Interpretation: Radiology results as stated below per my review and the radiologist's interpretation: CHEST ONE VIEW PORTABLE FINDINGS: Cardiac silhouette enlarged allowing for portable technique. Mildly low lung volumes and hypoventilatory changes. No focal opacity. No large effusion or pneumothorax. Osseous structures normal. Upper abdomen normal. IMPRESSION: 1. Mildly low lung volumes with hypoventilatory changes. No focal infiltrate to suggest pneumonia. Electronically signed by: Serge Nicole M.D. ABD/PELVIS NO IV OR ORAL CONT FINDINGS: Feather Baler topogram: Total right hip arthroplasty and right acetabular fixation. Lung bases: Minimal basilar opacities, likely atelectasis. Normal heart size. No pericardial or pleural effusion. Liver: Enlarged. Density consistent with hepatic steatosis. Biliary: No gross biliary ductal dilatation allowing for noncontrast technique. Normal gallbladder. Pancreas: Moderate parenchymal atrophy. Spleen: Normal noncontrast appearance. Adrenal glands: Normal noncontrast appearance. Kidneys and ureters: Left greater than right perinephric fat stranding. No nephrolithiasis. No hydronephrosis. Fullness of the upper pole the left kidney. At this site, there is the greatest degree of perinephric fat stranding. Right ureter takes a medial retrocaval course. Normal left ureter. Bladder: Circumferential bladder wall thickening. Pelvic organs: Prostate enlargement likely secondary to benign prostatic hyperplasia. Calcification of the vas deferentia could imply diabetes. Bowel: Mild stool burden. Fluid in the colon suggests a diarrheal state. The appendix is normal. No bowel obstruction. Peritoneal cavity: No free fluid or intraperitoneal gas. Lymph nodes: No gross lymphadenopathy allowing for noncontrast technique. Vasculature: Atherosclerosis of the normal caliber abdominal aorta. Abdominal wall: Postsurgical changes of the right upper quadrant abdominal wall with atrophy of the right rectus abdominis. Fat-containing umbilical hernia. Musculoskeletal: Degenerative changes of the spine. Total right hip arthroplasty. Screw fixation of the superior acetabulum on the right. IMPRESSION: 1. Hepatomegaly and severe hepatic steatosis. Correlate with liver function tests to exclude steatohepatitis as a cause for abdominal pain. 2. Slight asymmetric fullness and inflammatory change at the upper pole of the left kidney. This is incompletely characterized without intravenous contrast. Differential considerations include normal variant, lobar nephronia/focal chuck nephritis, or underlying neoplasm. Dedicated contrast enhanced CT imaging of the kidneys recommended, which could be obtained on an outpatient basis. 3. Circumferential bladder wall thickening could suggest chronic bladder outlet obstruction in the setting of prostatomegaly. 4. Mild stool burden with fluid in the colon possibly suggesting a diarrheal state. Electronically signed by: Serge Nicole M.D. Laboratory Results Test 08/14/17 17:44 08/14/17 17:48 08/14/17 18:00 08/14/17 19:15 Prothrombin Time 10.3 SECONDS (9.0-12.0) Prothromb Time International Ratio 1.0 (0.9-1.1) Total Bilirubin 0.5 mg/dl (0.2-1) Direct Bilirubin 0.2 mg/dl (0-0.2) Aspartate Amino Transf (AST/SGOT) 33 U/L (15-37) Alanine Aminotransferase (ALT/SGPT) 92 U/L (12-78) Alkaline Phosphatase 132 U/L (45-117) Total Creatine Kinase 101 U/L (39-308) Creatine Kinase MB 0.5 ng/ml (0.5-3.6) Creatine Kinase MB Ratio 0.5 (0-3.0) Troponin I < 0.015 ng/ml (0-0.045) Total Protein 7.8 gm/dl (6.4-8.2) Albumin 3.3 gm/dl (3.4-5.0) Hepatitis C Antibody Screen NEG (NEG) Bedside Hemoglobin 14.3 g/dl (14.0-18.0) Bedside Hematocrit 42 % (42-52) Bedside Sodium 133 mEq/L (135-144) Bedside Potassium 6.4 mEq/L (3.3-5.0) Bedside Chloride 92 mEq/L (101-112) Bedside Total CO2 20 mEq/l (24-31) Bedside Blood Urea Nitrogen 92 mg/dl (7-18) Bedside Creatinine 4.3 mg/dl (0.6-1.3) Bedside Glucose (other) > 700 mg/dl (70-99) Bedside Ionized Calcium ([place]) < 0.25 mmol/l (1.12-1.32) Venous Blood pH 7.26 (7.36-7.41) Venous Blood Partial Pressure CO2 48 mmHg (38.0-50.0) Venous Blood Partial Pressure O2 22 mmHg Venous Blood HCO3 21 mmol/L Venous Blood Oxygen Saturation < 60.0 % Venous Blood Base Excess -6.3 mEq/L Bedside Glucose > 600 mg/dl (70-99) Test 08/14/17 19:30 Urine Color YELLOW Urine Appearance CLOUDY (CLEAR) Urine pH 5.0 (4.5-7.5) Urine Specific [place] 1.027 (1.000-1.030) Urine Protein 1+ (NEG) Urine Glucose (UA) 3+ (NEG) Urine Ketones TRACE (NEG) Urine Occult Blood TRACE (NEG) Urine Nitrite NEG (NEG) Urine Bilirubin NEG (NEG) Urine Urobilinogen NEG (NEG) Urine Leukocyte Esterase SMALL (NEG) Urine Hyaline Casts (Auto) /lpf (0-5) Urine RBC 0-4 /hpf (0-4) Urine WBC 5-10 /hpf (0-5) Urine Epithelial Cells 10-20 /lpf (0-5) Urine Renal Epithelial Cells /lpf (0-5) Urine Amorphous Sediment PRESENT (NONE PRSENT) Urine Bacteria NEG (NEG) Urine Pathogenic Casts /lpf (0) Urine Mucus PRESENT (NONE PRSENT) Urine Yeast BUDDING (NONE PRSENT) Urine Yeast (Auto) (NONE PRSENT) Laboratory results per my review. Medications Administered Medications (Trade) Dose Ordered Sig/Blade Route Start Time Stop Time Status Last Admin Dose Admin Sodium Chloride 1,000 ml @ 999 mls/hr Q1H1M STAT IV 08/14/17 17:21 08/14/17 18:21 DC 08/14/17 17:21 999 MLS/HR Insulin Human Regular (novoLIN-R U-100 PER UNIT) 8 units NOW STAT IV 08/14/17 17:53 08/14/17 17:55 DC 08/14/17 18:09 8 UNITS Insulin Human Regular (Insulin IV Infusion Protocol) 1 ea NOW STAT N/A 08/14/17 17:53 08/14/17 17:55 DC 08/14/17 17:53 1 EA Miscellaneous (Insulin Protocol Dka Goal Range) 1 ea ONE ONCE N/A 08/14/17 18:00 08/14/17 18:01 DC 08/14/17 18:49 1 EA Miscellaneous (Insulin Protocol Severe Stress) 1 ea ONE ONCE N/A 08/14/17 18:00 08/14/17 18:01 DC 08/14/17 18:49 1 EA Calcium Gluconate (Calcium Gluconate 10%) 1,000 mg NOW STAT IV 08/14/17 17:53 08/14/17 17:56 DC 08/14/17 18:07 1,000 MG Insulin Human Regular (NovoLIN R BOLUS FROM BAG) 4.5 unit ONE ONCE IV 08/14/17 18:15 08/14/17 18:16 DC 08/14/17 18:49 4.5 UNIT Insulin Human Regular 250 units/ Sodium Chloride 252.5 ml @ 0 mls/hr Q24H IV 08/14/17 18:15 09/13/17 18:14 08/14/17 18:49 4.4 MLS/HR Sodium Bicarbonate (Sodium Bicarbonate 8.4% Inj) 150 ml NOW STAT IV 08/14/17 18:55 08/14/17 18:56 DC 08/14/17 19:09 150 ML Calcium Gluconate (Calcium Gluconate 10%) 1,000 mg NOW STAT IV 08/14/17 18:55 08/14/17 18:56 DC 08/14/17 19:36 1,000 MG Sodium Chloride 2,000 ml @ 999 mls/hr Q2H1M STAT IV 08/14/17 18:57 08/14/17 20:57 DC 08/14/17 18:57 999 MLS/HR Cefepime HCl 2000 mg/Syringe 20 ml @ 5 mls/min NOW ONCE IV 08/14/17 19:15 08/14/17 19:18 DC 08/14/17 19:43 5 MLS/MIN ECG Per My Interpretation Indication: vomiting Rate (beats per minute): 114 Rhythm: sinus tachycardia Findings: other (normal axis, flipped T-wave lead 3, no PVC) Comparison ECG Date: no prior available ED Course ED COURSE: Vital signs were reviewed and showed hypotensive and tachycardic. The patients medical record was reviewed The above diagnostic studies were performed and reviewed. ED treatments and interventions as stated above. 1716: The patient was evaluated in room C11B. A complete history and physical examination was performed. 1721: Ordered Sodium Chloride 1000 ml @ 999 mls/hr IV. 1735: Second IV in place. Blood pressure is 101. 1753: Ordered Calcium Gluconate 1000 mg IV, Insulin Human Regular 1 ea, Insulin Human Regular 8 units IV. 1800: Ordered Insulin Protocol Severe Stress 1 ea, Insulin Protocol DKa Goal range 1 ea. 1801: I updated the patient on his test results. 1806: I reviewed the patient's case with Juliana [facility] ICU. She will evaluate the patient for further management. 1815: Ordered Glucagon 1 mg Protocol SQ, Dextrose 25-50 ml of 50 % DW IV, Gluclose 4-8 tablets PO, Glucose 15-30 grams PO, Insulin Human Regular 250 units /Sodium Chloride 252.5 ml @ 0 mls/hr IV, Insulin Human Regular 4.5 units IV. 1899: Ordered Insulin Aspart SC. 1914: Ordered Cefepime HCl 2,000 mg/Syringe 20 ml @ 5 mls/min protocol IV. 1930: Upon reevaluation, the patient is resting comfortable.I discussed my findings with the patient and He understands and agrees with the treatment plan. Based on the patients age, coexisting illnesses, exam and lab findings the decision to treat as an inpatient was made. The patient remained stable while under my care. The patient will be evaluated for further management. Medical Decision Differential diagnosis includes etiologies such as sepsis, UTI, pneumonia, metabolic, electrolyte abnormalities, cardiac sources, intracerebral event, toxicologic, neurologic, as well as others were entertained. Patient is a 52-year-old male who presents to ER for persistent nausea vomiting diarrhea. This is been present for the past 3 days. Upon presentation systolic pressures were in the 50s. 2 IVs were obtained. Sepsis alert was called. I-STAT shows a potassium of 6.8. Creatinine was 5. BSG was greater than 700. Glucose resulted at 1350. Lactate was elevated at 3.5. Patient was acidotic at 7.2. Patient was given 3 L normal saline. He was covered with broad-spectrum antibiotics as is concerned that diarrhea may be secondary to C. difficile. Patient was given multiple doses of calcium chloride, bicarbonate and insulin for the hyperkalemia. EKG did have some subtle changes. He was placed on insulin drip. I discussed with critical care and internal medicine. Patient family were updated bedside. He was admitted to the ICU for further workup. Patient was persistently confused in the ER and I do not believe was able to give consent. I did discuss with Dr. Larry and agreed that he needs a CVC. Medication Reconcilliation Current Medication List: was personally reviewed by me Blood Pressure Screening Patient's blood pressure: Low blood pressure Consults Time Called: 1803 Consulting Physician: [facility] ICU Returned Call: [phone] I reviewed the patient's case with Juliana Vill[facility] ICU. She will evaluate the patient for further management. Impression Primary Impression: DKA (diabetic ketoacidoses) Additional Impressions: KIM (acute kidney injury) Hyperkalemia Hypotension Altered mental status Sepsis Critical Care I have personally spent 75 minutes of critical care time in the direct management of this patient. This includes bedside care, interpretation of diagnostic studies, and testing, discussion with consultants, patient, and family members, and other required patient management activities. This 75 minutes is in excess of all separately billable procedures. Scribe Attestation The scribe's documentation has been prepared under my direction and personally reviewed by me in its entirety. I confirm that the note above accurately reflects all work, treatment, procedures, and medical decision making performed by me. Departure Information Dispostion Being Evaluated By Hospitalist Adalid Barajas M.D. (PCP) Patient Instructions My [facility] Problem Qualifiers Primary Impression: DKA (diabetic ketoacidoses) Diabetes mellitus type: other specified (including ARTURO) Diabetes mellitus complication detail: without coma Qualified Codes: E13.10 - Other specified diabetes mellitus with ketoacidosis without coma Additional Impressions: Hypotension Hypotension type: unspecified hypotension type Qualified Codes: I95.9 - Hypotension, unspecified Altered mental status Altered mental status type: unspecified Qualified Codes: R41.82 - Altered mental status, unspecified Sepsis Sepsis type: sepsis due to unspecified organism Qualified Codes: A41.9 - Sepsis, unspecified organism
[2017-08-15] MEDS ORDERED: NURSING VERBAL MED ORDER ONE ×3 (00:30→04:45)
[2017-08-15] MEDS ORDERED: SODIUM CHLORIDE 0.45% 1000ML 1,000 ML IV ONE (00:45)
[2017-08-15] MEDS: PHENYLEPHRINE HCL INJ 20 MG in DEXTROSE 5% 500ML 500 ML IV PRN ×2 (01:07→06:46)
[2017-08-15] MEDS ORDERED: PNEUMOCOCCAL POLYSACCHARIDES 25 MCG/0.5 ML VIAL/SYR IM. ONE (01:45)
[2017-08-15] MEDS ORDERED: INFLUENZA ADMINISTRATION CHARGE ONE (01:45)
[2017-08-15] MEDS ORDERED: INFLUENZA VIRUS QUAD VACCINE 0.5 ML SYR IM. ONE (01:45)
[2017-08-15] MEDS ORDERED: PNEUMOCOCCAL ADMINISTRATION CHARGE ONE (01:45)
--- NOTE | 2017-08-15 02:43 | Procedure Note ---
Procedure Note Procedure Date Aug 15, 2017. Procedure Description Procedure Name: Right Arterial Catheterization Procedure time out: side/site verified, patient ID confirmed, correct procedure Consent obtained: written ([address] Larry and Dr[address] Mckenzie ) Time of procedure: 01:30 Performed by: physician salon/spa manager Indications: diagnostic, therapeutic Contraindications: none Description: Using sterile technique; the right radial artery was cleaned with a chloro- hexadine scrub after adequate palpation and visualization with the ultrasound, a finder needle with overlaying catheter was then used with approach at a 45* angle until a flash was obtained with direct visualization on ultrasound. Using Seldinger technique, there was initially no difficulty passing the guide wire, on the first attempt the guide wire was then passed successfully into the artery and the catheter was threaded over the guide wire; which was then removed. Arterial blood was seen pulsating from catheter tip and a luer lock valve was attached to the catheter. The A-line catheter was then secured with one surgical suture and covered with a sterile surgical dressing. Pt was reassessed and no evidence of hematoma was appreciated. The tubing was placed between the first and second fingers and taped to the forearm, before a wrist support was placed. Pt tolerated the procedure well with no complications. Consent was obtained by Dr. Jasmeet Larry and Dr. Mckenzie (ED) Complications: none Patient tolerated procedure: well Post-procedure vital signs: reviewed and stable Central Line Procedure time out: side/site verified, patient ID confirmed, sterile procedure used Consent obtained: written (two-physician consent) Time of procedure: 01:00 Performed by: physician salon/spa manager Indications: central drug admin. Prep: chlorhexadine prep, sterile drape, sterile procedures used Anesthesia: local injection, lidocaine 1% without epi Volume anesthetic (ml's): 5 Central line lumen: triple Central line location: internal jugular (R) Additional details: percutaneous placement, ultrasound guidance, Selinger technique used, line sutured, good blood return CXR: appropriate position, no pneumothorax Patient tolerated procedure: well Post-procedure vital signs: reviewed and stable Comments: Consent was obtained prior to procedure. Indication, risks, and benefits were explained at length. Procedure: Procedure was performed under strict sterile field in O.R. fashion. The right neck and chest were cleaned with chloroprep scrub and the pt was draped in sterile fashion. The internal jugular vein was identified using ultrasound. After anesthetizing the area with 5cc of lidocaine, venous blood was withdrawn after accessing the vein under ultrasound guidance. The syringe was removed and a guide wire was advanced into the introducer needle.The dilator was advanced after being exchanged for the introducer needle. After appropriate dilation was obtained, the dilator was removed and the central catheter was placed over the guide wire using Seldinger technique. The wire was removed intact and the catheter was sutured at 16cm. A surgical dressing was placed over the catheter with a biofilm shield in place. At the time of the procedure each port was aspirated and then flushed properly. Pt tolerated the procedure well with no complications. Post procedure x-ray was completed, placement was appropriate and no pneumothorax was noted. Critical Care Medicine Point of Care Bedside Ultrasound Procedure: Procedural Ultrasound Procedure Date: 08/15/2017 Indication: Hypotension Attending: Radha Larry DO Resident/Physician Letter Stamping Machine Operator: Machelle Perkins PA-C If for central venous access Artery AND Vein visualized: Y Compressible Vein: Y Guidewire or Short Catheter seen in vein prior to dilation: Y Line confirmed in Vein with ultrasound: Y If no lung sliding or not obtained has CXR been ordered: Y Impression: Line in place, Pt hypotensive requiring vasopressor medication Plan: Line ok for use Begin ordered phenylephrine Goal Map > 65 Images obtained are saved for permanent record
[2017-08-15 02:52] LABS: CALCIUM 7.9 mg/dl (8.5-10.1); CREATININE 4.33 mg/dl (0.60-1.40); POTASSIUM 4.1 mmol/L (3.5-5.1)
[2017-08-15] MEDS: SODIUM CHLOR 0.45% + 20MEQ KCL 1,000 ML IV SCH (03:28)
[2017-08-15 04:34] LABS: CALCIUM 8.1 mg/dl (8.5-10.1); CREATININE 4.13 mg/dl (0.60-1.40); POTASSIUM 3.9 mmol/L (3.5-5.1)
[2017-08-15] MEDS ORDERED: SODIUM CHLORIDE 0.45% 1000ML 500 ML IV ONE (04:45)
[2017-08-15] MEDS: LEVOTHYROXINE 50 MCG TAB PO SCH (05:34)
[2017-08-15] MEDS: HEPARIN SOD 5000 UNIT/0.5 ML CARP SQ SCH ×3 (05:35→21:52)
--- NOTE | 2017-08-15 06:59 | DIAGNOSTIC IMAGING REPORT ---
CHEST ONE VIEW PORTABLE CLINICAL HISTORY: CVL Placement COMPARISON STUDY: 08/14/2017 FINDINGS: The heart is enlarged. There is been interval placement of a right internal jugular central venous catheter. The tip projects over the superior vena cava. There is no pneumothorax. There is no focal pulmonary consolidation.[ There are low lung volumes. IMPRESSION: No evidence of pneumothorax status post placement of right internal jugular central venous catheter. Electronically signed by: Orestes Vick M.D. 08/15/2017 6:58 AM Dictated Date/Time: 08/15/2017 6:57 AM
[2017-08-15] MEDS: INSULIN ASPART 100 UNITS/ML 3 ML PEN SC SCH ×4 (08:00→21:02)
[2017-08-15] MEDS ORDERED: VANCOMYCIN INJ 2,250 MG in SODIUM CHLORIDE 0.9% 500ML 500 ML IV ONE (08:45)
[2017-08-15] MEDS: D5W AND 1/2NSS + 20MEQ KCL 1,000 ML IV SCH ×4 (08:50→23:59)
[2017-08-15] MEDS: AMLODIPINE BESYLATE 5 MG TAB PO SCH (08:57)
[2017-08-15] MEDS: ASPIRIN 81 MG CHEW PO SCH (08:57)
[2017-08-15] MEDS ORDERED: VANCOMYCIN CONSULT ACTIVE PRN (09:00)
[2017-08-15] MEDS ORDERED: PHARMACY GLYCEMIC MGMT CONSULT PRN (09:15)
[2017-08-15 09:42] LABS: BASO % 0.5 %; BASO ABS # 0.04 K/uL (0-0.2); EOS % 3.7 %; EOS ABS # 0.31 K/uL (0-0.5); HEMATOCRIT 32.9 % (42-52); HEMOGLOBIN 10.7 g/dL (14.0-18.0); IG# 0.07 K/uL (0.00-0.02); LYMPH % 17.2 %; LYMPH ABS # 1.42 K/uL (1.2-3.4); MEAN CORPUSCULAR HEMOGLOBIN 28.3 pg (25-34); MEAN CORPUSCULAR HGB CONC 32.5 g/dl (32-36); MONO % 6.2 %; MONO ABS # 0.51 K/uL (0.11-0.59); NEUT % 71.6 %; NEUT ABS # 5.92 K/uL (1.4-6.5); PLATELET COUNT 164 K/uL (130-400); RED CELL DISTRIBUTION WIDTH CV 14.7 % (11.5-14.5); RED CELL DISTRIBUTION WIDTH SD 46.8 fL (36.4-46.3); WHITE BLOOD COUNT 8.27 K/uL (4.8-10.8)
[2017-08-15 10:17] LABS: CALCIUM 7.9 mg/dl (8.5-10.1); CREATININE 3.38 mg/dl (0.60-1.40); POTASSIUM 3.4 mmol/L (3.5-5.1)
[2017-08-15] MEDS ORDERED: LACTATED RINGER'S 1000ML 1,000 ML IV ONE (11:45)
[2017-08-15] MEDS ORDERED: POTASSIUM CHLORIDE 20 MEQ TABCR PO ONE (11:45)
[2017-08-15] MEDS ORDERED: INSULIN GLARGINE SOLOSTAR 100 UNITS/ML 3 ML PEN SC ONE (12:15)
--- NOTE | 2017-08-15 12:47 | Pharmacy Progress Note ---
Glycemic Control Intl Consult Date of Service Aug 15, 2017. Scope Glycemic Pharmacist consulted by Dr Larry on 08/15/17 for glycemic control and to write orders per [facility] inpatient glycemic control protocol Objective Weight (Kilograms): 115.200 Accuchecks BSG (last 24hrs): Test 08/14/17 17:39 08/14/17 17:44 08/14/17 18:24 08/14/17 19:15 Bedside Glucose > 600 mg/dl (70-99) > 600 mg/dl (70-99) > 600 mg/dl (70-99) Random Glucose 1359 mg/dl (70-99) Test 08/14/17 19:52 08/14/17 22:03 08/14/17 23:31 08/15/17 01:17 Random Glucose 1113 mg/dl (70-99) 781 mg/dl (70-99) 647 mg/dl (70-99) Bedside Glucose 468 mg/dl (70-99) Test 08/15/17 02:20 08/15/17 04:00 08/15/17 09:18 Random Glucose 402 mg/dl (70-99) 257 mg/dl (70-99) 173 mg/dl (70-99) Laboratory Data (last 24hrs) Test 08/14/17 17:44 08/14/17 17:48 08/14/17 19:52 08/15/17 02:20 Anion Gap 14.0 mmol/L 29.0 mmol/L 15.0 mmol/L 12.0 mmol/L BUN/Creatinine Ratio 16.8 17.1 18.7 Blood Urea Nitrogen 85 mg/dl 82 mg/dl 81 mg/dl Creatinine 5.05 mg/dl 4.79 mg/dl 4.33 mg/dl Potassium Level 6.8 mmol/L 4.9 mmol/L 4.1 mmol/L Sodium Level 125 mmol/L 134 mmol/L 143 mmol/L White Blood Count 7.79 K/uL Red Blood Count 3.74 M/uL Hemoglobin 10.6 g/dL Hematocrit 32.8 % Mean Corpuscular Volume 87.7 fL Mean Corpuscular Hemoglobin 28.3 pg Mean Corpuscular Hemoglobin Concent 32.3 g/dl Platelet Count 120 K/uL Neutrophils (%) (Auto) 88.5 % Lymphocytes (%) (Auto) 4.4 % Monocytes (%) (Auto) 5.9 % Eosinophils (%) (Auto) 0.3 % Basophils (%) (Auto) 0.1 % Neutrophils # (Auto) 6.90 K/uL Lymphocytes # (Auto) 0.34 K/uL Monocytes # (Auto) 0.46 K/uL Eosinophils # (Auto) 0.02 K/uL Basophils # (Auto) 0.01 K/uL Test 08/15/17 04:00 08/15/17 09:18 Anion Gap 11.0 mmol/L 11.0 mmol/L BUN/Creatinine Ratio 19.7 21.4 Blood Urea Nitrogen 81 mg/dl 72 mg/dl Creatinine 4.13 mg/dl 3.38 mg/dl Potassium Level 3.9 mmol/L 3.4 mmol/L Sodium Level 144 mmol/L 144 mmol/L White Blood Count 8.27 K/uL Red Blood Count 3.78 M/uL Hemoglobin 10.7 g/dL Hematocrit 32.9 % Mean Corpuscular Volume 87.0 fL Mean Corpuscular Hemoglobin 28.3 pg Mean Corpuscular Hemoglobin Concent 32.5 g/dl Platelet Count 164 K/uL Mean Platelet Volume 11.0 fL Neutrophils (%) (Auto) 71.6 % Lymphocytes (%) (Auto) 17.2 % Monocytes (%) (Auto) 6.2 % Eosinophils (%) (Auto) 3.7 % Basophils (%) (Auto) 0.5 % Neutrophils # (Auto) 5.92 K/uL Lymphocytes # (Auto) 1.42 K/uL Monocytes # (Auto) 0.51 K/uL Eosinophils # (Auto) 0.31 K/uL Basophils # (Auto) 0.04 K/uL Recent Pertinent Medications Outpatient Anti-diabetic Regimen: * Metformin 1 g po BID * Glimepiride 1 mg po daily * A1c pending for 08/16/17 The patient is currently receiving: * Insulin drip Risk Factors for Insulin Resistance: * Infection: Complicated UTI * Pressors: Phenylephrine * IVF: D5 1/2NS KCl 20mEq/L @ 200 mL/hr * Diet: T2DM Assessment & Plan ASSESSMENT: * 52 yo M with nausea, vomiting, diarrhea x 3 days admitted to ICU with DKA and/ or HHS, severe dehydration, KIM, and need for pressure support * Patient still requiring low-dose phenylephrine for pressure support - additional 1L bolus of LR ordered x1 now * BSG's rapidly declined overnight - dextrose added to IVF this AM. Patient has been adequately hydrated with ~7-8 L of fluid, especially as UOP has been minimal (of note patient self-catheterizes at home per PLATFORM POWER TECHNICIAN) * OK to attempt transition to basal/bolus subQ insulin per Dr. Larry * Insulin drip currently running at 4 units/hr. Patient will require large dose of Lantus to transition off. However, as patient may have HHS (rapid decline/hypoglycemia should be avoided) and also may be more sensitive 2nd KIM, will not provide as much Lantus as the insulin drip is providing. Will instead base Lantus dose on weight and stress of 3 per calculator * Novolog weight-based stress of 3 per calculator PLAN FOR INPATIENT GLYCEMIC CONTROL: * Discontinue IV insulin 6 hours after administration of Lantus, or sooner if insulin protocol indicates to hold * Hold outpatient oral diabetes medications * Basal insulin with LANTUS 60 units SQ x1 now then ongoing based on BSG * 0 units for BSG less than 140 mg/dL * 20 units for BSG 140-200 mg/dL * 30 units for BSG greater than 200 mg/dL * Correctional Insulin with NOVOLOG per scale ACHS or Q6hrs while NPO - two additional overnight checks * Goal Range: Low 140 mg/dL - High 180 mg/dL * Correction Factor: 15 mg/dL/unit * Nutritional / Prandial insulin per carb ratio of 1 unit per 5 grams CHO consumed * Please note that the plan above was derived based on current level of insulin resistance and hospital stress. These recommendations are appropriate for inpatient admission only. Plan of care upon discharge will need to be reassessed to avoid potential outpatient hypo/hyperglycemia. Thank you.
[2017-08-15] MEDS ORDERED: CEFEPIME CONSULT ACTIVE PRN (14:15)
--- NOTE | 2017-08-15 14:31 | Pharmacy Progress Note ---
Pharmacy Antibiotic Consult Date of Service: Aug 15, 2017. Pharmacy Dosing Scope Pharmacy is consulted to initiate vancomycin IV dosing therapy, order appropriate labs and adjust drug dose/frequency. Subjective The patient is a 52 year old male admitted on Aug 14, 2017 at 19:46. Objective Height (Feet): 5 Height (Inches): 8.00 Weight (Kilograms): 115.200 Lab Results (24hrs): Test 08/14/17 17:44 08/14/17 17:48 08/14/17 18:00 08/14/17 19:15 Prothrombin Time 10.3 SECONDS (9.0-12.0) Prothromb Time International Ratio 1.0 (0.9-1.1) Total Bilirubin 0.5 mg/dl (0.2-1) Direct Bilirubin 0.2 mg/dl (0-0.2) Aspartate Amino Transf (AST/SGOT) 33 U/L (15-37) Alanine Aminotransferase (ALT/SGPT) 92 U/L (12-78) Alkaline Phosphatase 132 U/L (45-117) Total Creatine Kinase 101 U/L (39-308) Creatine Kinase MB 0.5 ng/ml (0.5-3.6) Creatine Kinase MB Ratio 0.5 (0-3.0) Troponin I < 0.015 ng/ml (0-0.045) Total Protein 7.8 gm/dl (6.4-8.2) Albumin 3.3 gm/dl (3.4-5.0) Hepatitis C Antibody Screen NEG (NEG) Bedside Hemoglobin 14.3 g/dl (14.0-18.0) Bedside Hematocrit 42 % (42-52) Bedside Sodium 133 mEq/L (135-144) Bedside Potassium 6.4 mEq/L (3.3-5.0) Bedside Chloride 92 mEq/L (101-112) Bedside Total CO2 20 mEq/l (24-31) Bedside Blood Urea Nitrogen 92 mg/dl (7-18) Bedside Creatinine 4.3 mg/dl (0.6-1.3) Bedside Ionized Calcium ([place]) < 0.25 mmol/l (1.12-1.32) Venous Blood pH 7.26 (7.36-7.41) Venous Blood Partial Pressure CO2 48 mmHg (38.0-50.0) Venous Blood Partial Pressure O2 22 mmHg Venous Blood HCO3 21 mmol/L Venous Blood Oxygen Saturation < 60.0 % Venous Blood Base Excess -6.3 mEq/L Bedside Glucose > 600 mg/dl (70-99) Test 08/14/17 19:30 08/14/17 19:52 08/14/17 20:56 08/14/17 23:31 Urine Color YELLOW Urine Appearance CLOUDY (CLEAR) Urine pH 5.0 (4.5-7.5) Urine Specific [place] 1.027 (1.000-1.030) Urine Protein 1+ (NEG) Urine Glucose (UA) 3+ (NEG) Urine Ketones TRACE (NEG) Urine Occult Blood TRACE (NEG) Urine Nitrite NEG (NEG) Urine Bilirubin NEG (NEG) Urine Urobilinogen NEG (NEG) Urine Leukocyte Esterase SMALL (NEG) Urine Hyaline Casts (Auto) /lpf (0-5) Urine RBC 0-4 /hpf (0-4) Urine WBC 5-10 /hpf (0-5) Urine Epithelial Cells 10-20 /lpf (0-5) Urine Renal Epithelial Cells /lpf (0-5) Urine Amorphous Sediment PRESENT (NONE PRSENT) Urine Bacteria NEG (NEG) Urine Pathogenic Casts /lpf (0) Urine Mucus PRESENT (NONE PRSENT) Urine Yeast BUDDING (NONE PRSENT) Urine Yeast (Auto) (NONE PRSENT) White Blood Count 7.79 K/uL (4.8-10.8) Red Blood Count 3.74 M/uL (4.7-6.1) Hemoglobin 10.6 g/dL (14.0-18.0) Hematocrit 32.8 % (42-52) Mean Corpuscular Volume 87.7 fL (80-100) Mean Corpuscular Hemoglobin 28.3 pg (25-34) Mean Corpuscular Hemoglobin Concent 32.3 g/dl (32-36) Platelet Count 120 K/uL (130-400) Neutrophils (%) (Auto) 88.5 % Lymphocytes (%) (Auto) 4.4 % Monocytes (%) (Auto) 5.9 % Eosinophils (%) (Auto) 0.3 % Basophils (%) (Auto) 0.1 % Neutrophils # (Auto) 6.90 K/uL (1.4-6.5) Lymphocytes # (Auto) 0.34 K/uL (1.2-3.4) Monocytes # (Auto) 0.46 K/uL (0.11-0.59) Eosinophils # (Auto) 0.02 K/uL (0-0.5) Basophils # (Auto) 0.01 K/uL (0-0.2) Immature Granulocyte % (Auto) 0.8 % Immature Granulocyte # (Auto) 0.06 K/uL (0.00-0.02) Lipase 249 U/L (73-393) Influenza Type A (RT-PCR) Neg for Influ A (NEG) Influenza Type B (RT-PCR) Neg for Influ B (NEG) Beta-Hydroxybutyric Acid 2.00 mg/dL (0.2-2.81) Test 08/15/17 01:17 08/15/17 02:20 08/15/17 04:00 08/15/17 05:25 Bedside Glucose 468 mg/dl (70-99) Phosphorus Level 4.0 mg/dl (2.5-4.9) 4.0 mg/dl (2.5-4.9) Beta-Hydroxybutyric Acid 1.58 mg/dL (0.2-2.81) Venous Blood pH 7.41 (7.36-7.41) Sodium Level 144 mmol/L (136-145) Potassium Level 3.9 mmol/L (3.5-5.1) Chloride Level 111 mmol/L (98-107) Carbon Dioxide Level 22 mmol/L (21-32) Anion Gap 11.0 mmol/L (3-11) Blood Urea Nitrogen 81 mg/dl (7-18) Creatinine 4.13 mg/dl (0.60-1.40) Est Creatinine Clear Calc Drug Dose 24.9 ml/min Estimated GFR () 17.7 Estimated GFR (Non- 15.3 BUN/Creatinine Ratio 19.7 (10-20) Random Glucose 257 mg/dl (70-99) Lactic Acid Level 2.2 mmol/L (0.4-2.0) Calcium Level 8.1 mg/dl (8.5-10.1) Magnesium Level 2.4 mg/dl (1.8-2.4) Procalcitonin 6.13 ng/ml (0-0.5) Random Cortisol 29.42 mcg/dl Bedside Glucose (other) 175 mg/dl (70-99) Test 08/15/17 06:46 08/15/17 09:18 08/15/17 13:20 Bedside Glucose (other) 142 mg/dl (70-99) White Blood Count 8.27 K/uL (4.8-10.8) Red Blood Count 3.78 M/uL (4.7-6.1) Hemoglobin 10.7 g/dL (14.0-18.0) Hematocrit 32.9 % (42-52) Mean Corpuscular Volume 87.0 fL (80-100) Mean Corpuscular Hemoglobin 28.3 pg (25-34) Mean Corpuscular Hemoglobin Concent 32.5 g/dl (32-36) Platelet Count 164 K/uL (130-400) Mean Platelet Volume 11.0 fL (7.4-10.4) Neutrophils (%) (Auto) 71.6 % Lymphocytes (%) (Auto) 17.2 % Monocytes (%) (Auto) 6.2 % Eosinophils (%) (Auto) 3.7 % Basophils (%) (Auto) 0.5 % Neutrophils # (Auto) 5.92 K/uL (1.4-6.5) Lymphocytes # (Auto) 1.42 K/uL (1.2-3.4) Monocytes # (Auto) 0.51 K/uL (0.11-0.59) Eosinophils # (Auto) 0.31 K/uL (0-0.5) Basophils # (Auto) 0.04 K/uL (0-0.2) RDW Standard Deviation 46.8 fL (36.4-46.3) RDW Coefficient of Variation 14.7 % (11.5-14.5) Immature Granulocyte % (Auto) 0.8 % Immature Granulocyte # (Auto) 0.07 K/uL (0.00-0.02) Venous Blood pH 7.43 (7.36-7.41) Sodium Level 144 mmol/L (136-145) Potassium Level 3.4 mmol/L (3.5-5.1) Chloride Level 111 mmol/L (98-107) Carbon Dioxide Level 22 mmol/L (21-32) Anion Gap 11.0 mmol/L (3-11) Blood Urea Nitrogen 72 mg/dl (7-18) Creatinine 3.38 mg/dl (0.60-1.40) Est Creatinine Clear Calc Drug Dose 30.8 ml/min Estimated GFR () 22.6 Estimated GFR (Non- 19.5 BUN/Creatinine Ratio 21.4 (10-20) Random Glucose 173 mg/dl (70-99) Lactic Acid Level 0.8 mmol/L (0.4-2.0) Calcium Level 7.9 mg/dl (8.5-10.1) Magnesium Level 2.3 mg/dl (1.8-2.4) Assessment & Plan Assessment * 52 yo M with nausea, vomiting, diarrhea x 3 days admitted to ICU with DKA and/ or HHS, severe dehydration, KIM, and need for pressure support * On cefepime x14 days for complicated UTI and vancomycin empirically * SCr acutely elevated to 5.1 on admission. Baseline around 1.0 mg/dL. Currently trended down to 3.4 mg/dL * Will give one-time loading dose of 20 mg/kg IV x1 2nd renal dysfunction * Unclear how quickly vancomycin will be cleared - will check random level @ ~ 11 hours post reduced loading dose Plan * Vancomycin 2250 mg IV x1 * Random level today @ 1999 Pharmacy will continue to follow and will adjust dose/frequency as necessary. Thank you
--- NOTE | 2017-08-15 16:27 | DIAGNOSTIC IMAGING REPORT ---
(RENAL)RETROPERITON COMP CLINICAL HISTORY: 52 years-old Male presenting with KIM and low urine output. TECHNIQUE: Real-time grayscale and limited color Doppler ultrasound imaging of the kidneys and bladder was performed. COMPARISON: CT from 08/14/2017. FINDINGS: Right kidney: Normal echogenicity of renal parenchyma. Right kidney measures 11.7 cm. No hydronephrosis. No convincing evidence of calculus or mass. Normal perfusion. Left kidney: Prominent lobular contour could indicate a juxtaparenchymal defect. No sonographic evidence of a discrete mass allowing for limited image quality. Left kidney measures 13.0 cm. No hydronephrosis. No convincing evidence of calculus or mass. Normal perfusion. Bladder: Decompressed with a Banuelos catheter. Other: Hepatic steatosis. IMPRESSION: 1. No hydronephrosis. No sonographic evidence of a renal abnormality, which does not exclude the possibility of a renal mass given limited image quality. 2. Hepatic steatosis. Electronically signed by: Serge Nicole M.D. 08/15/2017 4:26 PM Dictated Date/Time: 08/15/2017 4:23 PM
--- NOTE | 2017-08-15 18:00 | Progress Note ---
Subjective Date of Service: Aug 15, 2017. Subjective Pt evaluation today including: conversation w/ patient, physical exam, chart review, lab review, review of studies, conversation w/ marine engineering consultant, review of inpatient medication list Report doing okay eating lunch, however he was having fever 37.7 upon admission , still on Haseeb-Synephrine drip, get IV fluid bolus, he is on insulin drip for DKA, Problem List Medical Problems: (1) Altered mental status Status: Acute (2) Hyperkalemia Status: Acute (3) Hypotension Status: Acute (4) Sepsis Status: Acute (5) Urinary tract infection Status: Acute (6) Urinary tract infection associated with catheterization of urinary tract Status: Acute Review of Systems Constitutional: + weakness, + fatigue, No fever, No chills, No sweats, No weight loss, No problem reported Eyes: No worsening of vision, No eye pain, No redness, No discharge, No diplopia ENT: No hearing loss, No unusual epistaxis, No nasal symptoms, No sore throat, No tinnitus, No dental problems, No trouble swallowing Respiratory: No cough, No sputum, No wheezing, No shortness of breath, No dyspnea on exertion, No dyspnea at rest, No hemoptysis Cardiac: No chest pain, No orthopnea, No PND, No edema, No claudication, No palpitations Abdomen: No pain, No nausea, No vomiting, No diarrhea, No constipation Musculoskeletal: No joint pain, No muscle pain, No swelling, No calf pain Male : No dysuria, No urinary frequency, No incontinence, No nocturia more than once/night, No slowing stream, No hematuria Neurologic: No memory loss, No paralysis, No weakness, No numbness/tingling, No vertigo, No balance problems Psychiatric: No depression symptoms, No anhedonism, No anxiety, No insomnia, No substance abuse Heme: No abnormal bleeding/bruising, No clotting problems, No swollen lymph nodes, No night sweats Endo: No fatigue, No excessive thirst, No excessive urination Skin: No rash, No itch, No new/changing skin lesions, No color change, No bleeding Objective Vital Signs Date Time Temp Pulse Resp B/P (MAP) Pulse Ox O2 Delivery O2 Flow Rate FiO2 08/15/17 16:00 99 Room Air 08/15/17 14:45 102 89/67 (74) 98 Room Air 08/15/17 14:30 104 112/66 (81) 99 Room Air 08/15/17 14:00 107 149/66 (93) 99 Room Air 08/15/17 13:00 105 18 128/57 (80) 95 Room Air 08/15/17 12:00 95 Room Air 08/15/17 12:00 37.0 105 22 141/69 (93) 94 Room Air 136/83 (100) 08/15/17 11:00 103 147/75 (99) 95 Room Air 08/15/17 10:30 95 134/65 (88) 93 Room Air 08/15/17 10:02 110 104/50 (68) 94 Room Air 08/15/17 09:00 111 141/74 (96) 96 Room Air 08/15/17 08:00 95 Room Air 08/15/17 08:00 36.8 109 20 141/73 (95) 98 Room Air 08/15/17 08:00 109 141/73 (95) 98 08/15/17 08:00 Room Air 08/15/17 07:00 106 139/70 (93) 94 08/15/17 06:01 103 20 113/66 (82) 93 122/64 08/15/17 05:45 104 (82) 93 132/61 08/15/17 05:01 103 21 103/65 (78) 94 127/58 08/15/17 04:45 109 136/57 95 08/15/17 04:01 37.5 110 22 108/72 95 106/56 08/15/17 04:00 Room Air 08/15/17 03:30 109 (80) 94 121/62 08/15/17 03:01 108 89/58 (67) 95 101/54 08/15/17 02:30 109 (67) 94 102/54 18 02:01 109 22 117/49 (71) 95 Room Air 08/15/17 02:01 109 23 106/64 (72) 95 117/49 18 01:45 109 123/55 (77) 96 Room Air 08/15/17 01:34 108 109/70 (83) 97 Room Air 08/15/17 01:10 104 94/59 (71) 96 Room Air 08/15/17 01:01 108 21 66/45 (52) 97 Room Air 08/15/17 00:27 107 85/54 (64) 93 Room Air 08/15/17 00:26 106 75/54 (61) 92 Room Air 08/15/17 00:20 120 89/56 08/15/17 00:01 37.6 118 20 80/51 (61) 93 Room Air 08/14/17 23:59 Room Air 08/14/17 23:31 115 87/46 (60) 92 Room Air 08/14/17 23:24 119 82/50 (61) 91 Room Air 08/14/17 23:12 119 76/50 (59) 93 Room Air 08/14/17 23:10 122 72/49 (57) 93 Room Air 08/14/17 23:02 119 81/49 (60) 92 Room Air 08/14/17 23:01 118 22 73/42 (52) 93 Room Air 08/14/17 22:39 121 81/52 (62) 97 Room Air 08/14/17 22:27 121 73/45 (54) 95 Room Air 08/14/17 22:06 118 21 84/47 (59) 95 Room Air 08/14/17 22:00 94 08/14/17 21:03 37.7 120 20 106/53 (70) 100 Room Air 08/14/17 20:47 37.7 120 21 106/53 93 Room Air 08/14/17 20:31 82/43 08/14/17 20:23 80/46 08/14/17 20:22 37.7 123 22 94 Room Air 08/14/17 20:16 76/54 08/14/17 20:07 124 23 97 Room Air 08/14/17 20:01 97/62 08/14/17 19:52 121 22 99 Room Air 08/14/17 19:47 82/55 08/14/17 19:45 122 22 98 Room Air 08/14/17 19:32 94/48 08/14/17 19:30 112 22 100 Room Air 08/14/17 19:19 107/54 08/14/17 19:17 63/50 08/14/17 19:15 114 19 100 Room Air 08/14/17 19:01 103/46 08/14/17 19:00 117 21 100 Room Air 08/14/17 18:47 115 22 87/59 99 Room Air 08/14/17 18:20 109 18 92/44 98 Room Air 08/14/17 18:02 108 20 95/58 100 Room Air 08/14/17 17:59 114 17 105/60 98 Room Air Physical Exam General Appearance: WD/WN, no apparent distress Eyes: normal inspection, PERRL, EOMI, sclerae normal ENT: normal ENT inspection, hearing grossly normal, pharynx normal Neck: supple, no adenopathy, thyroid normal, no JVD, no carotid bruits, trachea midline Respiratory/Chest: chest non-tender, normal breath sounds, no respiratory distress, no accessory muscle use, + decreased breath sounds Cardiovascular: regular rate, rhythm, no edema, no gallop, no JVD, no murmur Abdomen: normal bowel sounds, non tender, soft, no organomegaly, no pulsatile mass Extremities: normal range of motion, non-tender, normal inspection, no pedal edema, no calf tenderness, normal capillary refill, pelvis stable Neurologic/Psychiatric: medical transcriptionist II-XII nml as tested, no motor/sensory deficits, alert, normal mood/affect, oriented x 3 Skin: normal color, warm/dry, no rash Lymphatic: no adenopathy Laboratory Results Last 24 Hours Test 08/14/17 17:55 08/14/17 18:00 08/14/17 18:24 08/14/17 19:15 Lactic Acid Level 3.5 mmol/L Venous Blood pH 7.26 Venous Blood Partial Pressure CO2 48 mmHg Venous Blood Partial Pressure O2 22 mmHg Venous Blood HCO3 21 mmol/L Venous Blood Oxygen Saturation < 60.0 % Venous Blood Base Excess -6.3 mEq/L Bedside Glucose > 600 mg/dl > 600 mg/dl Test 08/14/17 19:30 08/14/17 19:52 08/14/17 20:56 08/14/17 21:12 Urine Color YELLOW Urine Appearance CLOUDY Urine pH 5.0 Urine Specific [place] 1.027 Urine Protein 1+ Urine Glucose (UA) 3+ Urine Ketones TRACE Urine Occult Blood TRACE Urine Nitrite NEG Urine Bilirubin NEG Urine Urobilinogen NEG Urine Leukocyte Esterase SMALL Urine Hyaline Casts (Auto) /lpf Urine RBC 0-4 /hpf Urine WBC 5-10 /hpf Urine Epithelial Cells 10-20 /lpf Urine Renal Epithelial Cells /lpf Urine Amorphous Sediment PRESENT Urine Bacteria NEG Urine Pathogenic Casts /lpf Urine Mucus PRESENT Urine Yeast BUDDING Urine Yeast (Auto) White Blood Count 7.79 K/uL Red Blood Count 3.74 M/uL Hemoglobin 10.6 g/dL Hematocrit 32.8 % Mean Corpuscular Volume 87.7 fL Mean Corpuscular Hemoglobin 28.3 pg Mean Corpuscular Hemoglobin Concent 32.3 g/dl Platelet Count 120 K/uL Neutrophils (%) (Auto) 88.5 % Lymphocytes (%) (Auto) 4.4 % Monocytes (%) (Auto) 5.9 % Eosinophils (%) (Auto) 0.3 % Basophils (%) (Auto) 0.1 % Neutrophils # (Auto) 6.90 K/uL Lymphocytes # (Auto) 0.34 K/uL Monocytes # (Auto) 0.46 K/uL Eosinophils # (Auto) 0.02 K/uL Basophils # (Auto) 0.01 K/uL Immature Granulocyte % (Auto) 0.8 % Immature Granulocyte # (Auto) 0.06 K/uL Sodium Level 134 mmol/L Potassium Level 4.9 mmol/L Chloride Level 100 mmol/L Carbon Dioxide Level 19 mmol/L Anion Gap 15.0 mmol/L Blood Urea Nitrogen 82 mg/dl Creatinine 4.79 mg/dl Est Creatinine Clear Calc Drug Dose 21.8 ml/min Estimated GFR () 14.8 Estimated GFR (Non- 12.8 BUN/Creatinine Ratio 17.1 Random Glucose 1113 mg/dl Calcium Level 8.5 mg/dl Phosphorus Level 6.4 mg/dl Magnesium Level 2.9 mg/dl Lipase 249 U/L Beta-Hydroxybutyric Acid 6.69 mg/dL Influenza Type A (RT-PCR) Neg for Influ A Influenza Type B (RT-PCR) Neg for Influ B Venous Blood pH 7.36 Test 08/14/17 22:03 08/14/17 23:31 08/15/17 01:17 08/15/17 02:18 Random Glucose 781 mg/dl 647 mg/dl Beta-Hydroxybutyric Acid 2.43 mg/dL 2.00 mg/dL Venous Blood pH 7.38 Lactic Acid Level 4.0 mmol/L Bedside Glucose 468 mg/dl Bedside Glucose (other) 409 mg/dl Test 08/15/17 02:20 08/15/17 03:16 08/15/17 04:00 08/15/17 04:10 Sodium Level 143 mmol/L 144 mmol/L Potassium Level 4.1 mmol/L 3.9 mmol/L Chloride Level 109 mmol/L 111 mmol/L Carbon Dioxide Level 22 mmol/L 22 mmol/L Anion Gap 12.0 mmol/L 11.0 mmol/L Blood Urea Nitrogen 81 mg/dl 81 mg/dl Creatinine 4.33 mg/dl 4.13 mg/dl Est Creatinine Clear Calc Drug Dose 23.8 ml/min 24.9 ml/min Estimated GFR () 16.7 17.7 Estimated GFR (Non- 14.4 15.3 BUN/Creatinine Ratio 18.7 19.7 Random Glucose 402 mg/dl 257 mg/dl Calcium Level 7.9 mg/dl 8.1 mg/dl Phosphorus Level 4.0 mg/dl 4.0 mg/dl Magnesium Level 2.5 mg/dl 2.4 mg/dl Beta-Hydroxybutyric Acid 1.58 mg/dL Bedside Glucose (other) 328 mg/dl 252 mg/dl Venous Blood pH 7.41 Lactic Acid Level 2.2 mmol/L Procalcitonin 6.13 ng/ml Random Cortisol 29.42 mcg/dl Test 08/15/17 05:25 08/15/17 06:46 08/15/17 08:03 08/15/17 09:18 Bedside Glucose (other) 175 mg/dl 142 mg/dl 143 mg/dl White Blood Count 8.27 K/uL Red Blood Count 3.78 M/uL Hemoglobin 10.7 g/dL Hematocrit 32.9 % Mean Corpuscular Volume 87.0 fL Mean Corpuscular Hemoglobin 28.3 pg Mean Corpuscular Hemoglobin Concent 32.5 g/dl Platelet Count 164 K/uL Mean Platelet Volume 11.0 fL Neutrophils (%) (Auto) 71.6 % Lymphocytes (%) (Auto) 17.2 % Monocytes (%) (Auto) 6.2 % Eosinophils (%) (Auto) 3.7 % Basophils (%) (Auto) 0.5 % Neutrophils # (Auto) 5.92 K/uL Lymphocytes # (Auto) 1.42 K/uL Monocytes # (Auto) 0.51 K/uL Eosinophils # (Auto) 0.31 K/uL Basophils # (Auto) 0.04 K/uL RDW Standard Deviation 46.8 fL RDW Coefficient of Variation 14.7 % Immature Granulocyte % (Auto) 0.8 % Immature Granulocyte # (Auto) 0.07 K/uL Venous Blood pH 7.43 Sodium Level 144 mmol/L Potassium Level 3.4 mmol/L Chloride Level 111 mmol/L Carbon Dioxide Level 22 mmol/L Anion Gap 11.0 mmol/L Blood Urea Nitrogen 72 mg/dl Creatinine 3.38 mg/dl Est Creatinine Clear Calc Drug Dose 30.8 ml/min Estimated GFR () 22.6 Estimated GFR (Non- 19.5 BUN/Creatinine Ratio 21.4 Random Glucose 173 mg/dl Lactic Acid Level 0.8 mmol/L Calcium Level 7.9 mg/dl Magnesium Level 2.3 mg/dl Test 08/15/17 09:27 08/15/17 10:30 08/15/17 12:37 08/15/17 13:20 Bedside Glucose (other) 177 mg/dl 196 mg/dl 220 mg/dl Test 08/15/17 14:29 08/15/17 16:21 08/15/17 17:04 Bedside Glucose (other) 223 mg/dl 203 mg/dl 215 mg/dl Assessment and Plan 52 y/o M Hx DM II, HTN, HPL, hypothyroid. Pt presents following 3 days of nausea, vomiting and diarrhea. He denies abdominal pain, fevers, a productive cough or dysuria. On arrival to the ER he was notably hypotensive. Initial labs are consistent with severe dehydration, DKA, ARF and severe hyperkalemia. He does not normally take insulin. DKA with hyperglycemia type II diabetic, Stable improving Acute kidney failure with hyperkalemia: Stable and improved Possible sepsis with hypotensive tachycardia mild of fever, required a Haseeb- Synephrine pressor support History of HTN , hypotensive on arrival, Stool C. difficile negative, stool culture unremarkable so far, blood culture negative so far, Urine culture shows Deloris albicans, will start Diflucan, loading dose 200 mg p.o. now and 100 mg p.o. which is decrease by 50% per Renal function, need to be totally two-week Hypotensive also possible because of severe dehydration from DKA Dyslipidemia, hypothyroidism, continue current medication of Synthroid Continue IV fluid, bicarb, electrolytes, taper off pressure support if possible , follow-up blood culture urine culture, follow-up renal function, nephrology consultation if needed, patient never use insulin before, health educator ordered, Full code - Heparin prophylaxis Appreciate computer forensics examiner input Continued [facility] stay due to: multiple IV medications needed Discharge planning: home
[2017-08-15] MEDS ORDERED: FLUCONAZOLE 100 MG TAB PO ONE (18:30)
[2017-08-15] MEDS ORDERED: DC IV INSULIN INFUSION ONE (19:00)
[2017-08-15] MEDS ORDERED: CEFEPIME IV 500 MG in DEXTROSE 5% 100ML 100 ML IV SCH (19:30)
--- NOTE | 2017-08-15 19:31 | Critical Care Progress Note ---
Critical Care Progress Note Date of Service Aug 15, 2017. ICU Day ICU Day Number: [address] Larry Subjective Patient significantly improved compared to yesterday alert and oriented 3 Objective General: Alert. nontoxic. Skin: Warm, dry, Head: Atraumatic Ears, nose, mouth and throat: airway patent Cardiovascular: Normal peripheral perfusion Respiratory: no respiratory distress Gastrointestinal: Non distended Musculoskeletal: No deformity Assessment & Plan PLAN: Endocrine: * DKA * Resolved and gap closed * Transition off IV insulin Fluids/Renal: Acute kidney injury * No hydronephrosis, hepatic steatosis noted on renal ultrasound Radiology report reviewed, asymmetric fullness of left kidney * Dedicated contrasted CT imaging of the kidneys was recommended, this will likely need to occur as an outpatient Neuro: * Dilaudid for pain control when necessary * Neurogenic Bladder, Banuelos in place Resp: * Supplemental oxygen as required * Adequate Saturation on telemetry * Negative CXR CV: * Hypotension: Suspicion of sepsis with etiology * Consent on chart for central line * Goal map 65 or greater * Troponin negative * Holding home Norvasc * Monitor on telemetry ID: * Abx: Cefepime and vancomycin * History concerning for urinary tract infection etiology * Funguria in the setting of neurogenic bladder and self cath'ing * Cultures pending * No treatment indicated currently GI/Nutrition: * Patient tolerating diet * Hepatic steatosis * ALT mildly out of range and AST within normal limits, alkaline phosphatase mildly elevated * Will need follow-up with primary care provider regarding modifiable risk factors Heme: * H&H 10.3/32.8 * History of anemia we will send iron studies * No signs of acute bleeding * DVT Prophylaxis: Heparin SQ in place Patient is stable for downgrade out of ICU Data Medications: Current Inpatient Medications Medications (Trade) Dose Ordered Sig/Blade Route Start Time Stop Time Status Last Admin Dose Admin Insulin Human Regular 250 units/ Sodium Chloride 252.5 ml @ 0 mls/hr Q24H IV 08/14/17 18:15 09/13/17 18:14 08/14/17 18:49 4.4 MLS/HR Glucose (Glucose 40% Gel) 15-30 GRAMS 15 GRAMS... UD PRN PO 08/14/17 18:15 09/13/17 18:14 Glucose (Glucose Chew Tab) 4-8 Tablets 4 Tabl... UD PRN PO 08/14/17 18:15 09/13/17 18:14 Dextrose (Dextrose 50% 50ML Syringe) 25-50ML OF 50% DW IV FOR... UD PRN IV 08/14/17 18:15 09/13/17 18:14 Glucagon (Glucagon Inj) 1 mg UD PRN SQ 08/14/17 18:15 09/13/17 18:14 Heparin Sodium (Porcine) (Heparin Sq 5000 Unit/0.5ml) 5,000 unit Q8H SQ 08/14/17 22:00 09/13/17 21:59 08/15/17 14:21 5,000 UNIT Acetaminophen (Tylenol Tab) 650 mg Q4H PRN PO 08/14/17 19:45 09/13/17 19:44 Lorazepam (Ativan Tab) 0.5 mg Q4H PRN PO 08/14/17 19:45 09/13/17 19:44 Al Hydrox/Mg Hydrox/Simethicone (Maalox Max Susp) 15 ml Q4H PRN PO 08/14/17 19:45 09/13/17 19:44 Magnesium Hydroxide (Milk Of Magnesia Susp) 30 ml Q12H PRN PO 08/14/17 19:45 09/13/17 19:44 Ondansetron HCl (Zofran Inj) 4 mg Q6H PRN IV 08/14/17 19:45 09/13/17 19:44 Hydromorphone HCl (Dilaudid Tab) 0.5 mg Q4H PRN PO 08/14/17 19:45 08/28/17 19:44 Amlodipine Besylate (Norvasc Tab) 5 mg DAILY PO 08/15/17 09:00 09/14/17 08:59 Future Hold Aspirin (Aspirin Chew) 81 mg DAILY PO 08/15/17 09:00 09/14/17 08:59 08/15/17 08:57 81 MG Levothyroxine Sodium (Synthroid Tab) 50 mcg DAILYBB PO 08/15/17 06:00 09/14/17 05:59 08/15/17 05:34 50 MCG Simvastatin (Zocor Tab) 20 mg HS PO 08/14/17 21:00 09/13/17 20:59 Phenylephrine HCl 20 mg/Dextrose 502 ml @ 0 mls/hr Q0M PRN IV 08/15/17 00:40 09/14/17 00:39 08/15/17 06:46 84 MLS/HR Potassium Chloride/Dextrose/ Sod Cl 1,000 ml @ 200 mls/hr Q5H IV 08/15/17 08:45 09/14/17 08:44 08/15/17 14:18 200 MLS/HR Miscellaneous Information (Consult) 1 ea UD PRN N/A 08/15/17 09:00 08/17/17 08:59 Cefepime HCl 1000 mg/Syringe 11 ml @ 5.5 mls/min DAILY@2000 IV 08/15/17 20:00 08/28/17 19:59 Miscellaneous Information (Consult Glycemic Management Pharmacy) 1 ea UD PRN N/A 08/15/17 09:15 09/14/17 09:14 Insulin Aspart (novoLOG ASPART) SLIDING SCALE ACHS PR 08/15/17 16:00 09/14/17 15:59 08/15/17 16:54 4 UNITS Insulin Aspart (novoLOG ASPART) SLIDING SCALE TODAY@0000,0400 SC 08/16/17 00:00 08/16/17 04:01 Miscellaneous Information (Dc Iv Insulin Infusion) 1 ea TODAY@1900 ONCE N/A 08/15/17 19:00 08/15/17 19:01 Insulin Glargine (Lantus Solostar Pen) BID SC 08/15/17 21:00 09/14/17 20:59 Cefepime HCl (Consult) 1 ea UD PRN N/A 08/15/17 14:15 09/14/17 14:14 Fluconazole (Diflucan Tab) 100 mg QAM PO 08/16/17 09:00 08/21/17 08:59 I & O: 24-Hour Column 08/16/17 08:00 Intake Total 4158 ml Output Total 625 ml Balance 3533 ml Vital Signs: Date Time Temp Pulse Resp B/P (MAP) Pulse Ox O2 Delivery O2 Flow Rate FiO2 08/15/17 18:00 37.7 103 20 118/78 (91) 100 Room Air 08/15/17 16:00 99 Room Air 08/15/17 16:00 36.9 100 20 117/96 (103) 99 Room Air 08/15/17 14:45 102 89/67 (74) 98 Room Air 08/15/17 14:30 104 112/66 (81) 99 Room Air 08/15/17 14:00 107 149/66 (93) 99 Room Air 08/15/17 13:00 105 18 128/57 (80) 95 Room Air 08/15/17 12:00 95 Room Air 08/15/17 12:00 37.0 105 22 141/69 (93) 94 Room Air 136/83 (100) 08/15/17 11:00 103 147/75 (99) 95 Room Air 08/15/17 10:30 95 134/65 (88) 93 Room Air 08/15/17 10:02 110 104/50 (68) 94 Room Air 08/15/17 09:00 111 141/74 (96) 96 Room Air 08/15/17 08:00 95 Room Air 08/15/17 08:00 36.8 109 20 141/73 (95) 98 Room Air 08/15/17 08:00 109 141/73 (95) 98 08/15/17 08:00 Room Air 08/15/17 07:00 106 139/70 (93) 94 08/15/17 06:01 103 20 113/66 (82) 93 122/64 08/15/17 05:45 104 (82) 93 132/61 08/15/17 05:01 103 21 103/65 (78) 94 127/58 08/15/17 04:45 109 136/57 95 08/15/17 04:01 37.5 110 22 108/72 95 106/56 08/15/17 04:00 Room Air 08/15/17 03:30 109 (80) 94 121/62 08/15/17 03:01 108 89/58 (67) 95 101/54 08/15/17 02:30 109 (67) 94 102/54 08/15/17 02:01 109 22 117/49 (71) 95 Room Air 08/15/17 02:01 109 23 106/64 (72) 95 117/49 08/15/17 01:45 109 123/55 (77) 96 Room Air 08/15/17 01:34 108 109/70 (83) 97 Room Air 08/15/17 01:10 104 94/59 (71) 96 Room Air 08/15/17 01:01 108 21 66/45 (52) 97 Room Air 08/15/17 00:27 107 85/54 (64) 93 Room Air 08/15/17 00:26 106 75/54 (61) 92 Room Air 08/15/17 00:20 120 89/56 08/15/17 00:01 37.6 118 20 80/51 (61) 93 Room Air 08/14/17 23:59 Room Air 08/14/17 23:31 115 87/46 (60) 92 Room Air 08/14/17 23:24 119 82/50 (61) 91 Room Air 08/14/17 23:12 119 76/50 (59) 93 Room Air 08/14/17 23:10 122 72/49 (57) 93 Room Air 08/14/17 23:02 119 81/49 (60) 92 Room Air 08/14/17 23:01 118 22 73/42 (52) 93 Room Air 08/14/17 22:39 121 81/52 (62) 97 Room Air 08/14/17 22:27 121 73/45 (54) 95 Room Air 08/14/17 22:06 118 21 84/47 (59) 95 Room Air 08/14/17 22:00 94 08/14/17 21:03 37.7 120 20 106/53 (70) 100 Room Air 08/14/17 20:47 37.7 120 21 106/53 93 Room Air 08/14/17 20:31 82/43 08/14/17 20:23 80/46 08/14/17 20:22 37.7 123 22 94 Room Air 08/14/17 20:16 76/54 08/14/17 20:07 124 23 97 Room Air 08/14/17 20:01 97/62 08/14/17 19:52 121 22 99 Room Air 08/14/17 19:47 82/55 08/14/17 19:45 122 22 98 Room Air 08/14/17 19:32 94/48 08/14/17 19:30 112 22 100 Room Air 08/14/17 19:19 107/54 08/14/17 19:17 63/50 08/14/17 19:15 114 19 100 Room Air 08/14/17 19:01 103/46 08/14/17 19:00 117 21 100 Room Air Laboratory Results: Last 24 Hours Test 08/14/17 19:15 08/14/17 19:30 08/14/17 19:52 08/14/17 20:56 Bedside Glucose > 600 mg/dl Urine Color YELLOW Urine Appearance CLOUDY Urine pH 5.0 Urine Specific [place] 1.027 Urine Protein 1+ Urine Glucose (UA) 3+ Urine Ketones TRACE Urine Occult Blood TRACE Urine Nitrite NEG Urine Bilirubin NEG Urine Urobilinogen NEG Urine Leukocyte Esterase SMALL Urine Hyaline Casts (Auto) /lpf Urine RBC 0-4 /hpf Urine WBC 5-10 /hpf Urine Epithelial Cells 10-20 /lpf Urine Renal Epithelial Cells /lpf Urine Amorphous Sediment PRESENT Urine Bacteria NEG Urine Pathogenic Casts /lpf Urine Mucus PRESENT Urine Yeast BUDDING Urine Yeast (Auto) White Blood Count 7.79 K/uL Red Blood Count 3.74 M/uL Hemoglobin 10.6 g/dL Hematocrit 32.8 % Mean Corpuscular Volume 87.7 fL Mean Corpuscular Hemoglobin 28.3 pg Mean Corpuscular Hemoglobin Concent 32.3 g/dl Platelet Count 120 K/uL Neutrophils (%) (Auto) 88.5 % Lymphocytes (%) (Auto) 4.4 % Monocytes (%) (Auto) 5.9 % Eosinophils (%) (Auto) 0.3 % Basophils (%) (Auto) 0.1 % Neutrophils # (Auto) 6.90 K/uL Lymphocytes # (Auto) 0.34 K/uL Monocytes # (Auto) 0.46 K/uL Eosinophils # (Auto) 0.02 K/uL Basophils # (Auto) 0.01 K/uL Immature Granulocyte % (Auto) 0.8 % Immature Granulocyte # (Auto) 0.06 K/uL Sodium Level 134 mmol/L Potassium Level 4.9 mmol/L Chloride Level 100 mmol/L Carbon Dioxide Level 19 mmol/L Anion Gap 15.0 mmol/L Blood Urea Nitrogen 82 mg/dl Creatinine 4.79 mg/dl Est Creatinine Clear Calc Drug Dose 21.8 ml/min Estimated GFR () 14.8 Estimated GFR (Non- 12.8 BUN/Creatinine Ratio 17.1 Random Glucose 1113 mg/dl Calcium Level 8.5 mg/dl Phosphorus Level 6.4 mg/dl Magnesium Level 2.9 mg/dl Lipase 249 U/L Beta-Hydroxybutyric Acid 6.69 mg/dL Influenza Type A (RT-PCR) Neg for Influ A Influenza Type B (RT-PCR) Neg for Influ B Test 08/14/17 21:12 08/14/17 22:03 08/14/17 23:31 08/15/17 01:17 Venous Blood pH 7.36 7.38 Random Glucose 781 mg/dl 647 mg/dl Beta-Hydroxybutyric Acid 2.43 mg/dL 2.00 mg/dL Lactic Acid Level 4.0 mmol/L Bedside Glucose 468 mg/dl Test 08/15/17 02:18 08/15/17 02:20 08/15/17 03:16 08/15/17 04:00 Bedside Glucose (other) 409 mg/dl 328 mg/dl Sodium Level 143 mmol/L 144 mmol/L Potassium Level 4.1 mmol/L 3.9 mmol/L Chloride Level 109 mmol/L 111 mmol/L Carbon Dioxide Level 22 mmol/L 22 mmol/L Anion Gap 12.0 mmol/L 11.0 mmol/L Blood Urea Nitrogen 81 mg/dl 81 mg/dl Creatinine 4.33 mg/dl 4.13 mg/dl Est Creatinine Clear Calc Drug Dose 23.8 ml/min 24.9 ml/min Estimated GFR () 16.7 17.7 Estimated GFR (Non- 14.4 15.3 BUN/Creatinine Ratio 18.7 19.7 Random Glucose 402 mg/dl 257 mg/dl Calcium Level 7.9 mg/dl 8.1 mg/dl Phosphorus Level 4.0 mg/dl 4.0 mg/dl Magnesium Level 2.5 mg/dl 2.4 mg/dl Beta-Hydroxybutyric Acid 1.58 mg/dL Venous Blood pH 7.41 Lactic Acid Level 2.2 mmol/L Procalcitonin 6.13 ng/ml Random Cortisol 29.42 mcg/dl Test 08/15/17 04:10 08/15/17 05:25 08/15/17 06:46 08/15/17 08:03 Bedside Glucose (other) 252 mg/dl 175 mg/dl 142 mg/dl 143 mg/dl Test 08/15/17 09:18 08/15/17 09:27 08/15/17 10:30 08/15/17 12:37 White Blood Count 8.27 K/uL Red Blood Count 3.78 M/uL Hemoglobin 10.7 g/dL Hematocrit 32.9 % Mean Corpuscular Volume 87.0 fL Mean Corpuscular Hemoglobin 28.3 pg Mean Corpuscular Hemoglobin Concent 32.5 g/dl Platelet Count 164 K/uL Mean Platelet Volume 11.0 fL Neutrophils (%) (Auto) 71.6 % Lymphocytes (%) (Auto) 17.2 % Monocytes (%) (Auto) 6.2 % Eosinophils (%) (Auto) 3.7 % Basophils (%) (Auto) 0.5 % Neutrophils # (Auto) 5.92 K/uL Lymphocytes # (Auto) 1.42 K/uL Monocytes # (Auto) 0.51 K/uL Eosinophils # (Auto) 0.31 K/uL Basophils # (Auto) 0.04 K/uL RDW Standard Deviation 46.8 fL RDW Coefficient of Variation 14.7 % Immature Granulocyte % (Auto) 0.8 % Immature Granulocyte # (Auto) 0.07 K/uL Venous Blood pH 7.43 Sodium Level 144 mmol/L Potassium Level 3.4 mmol/L Chloride Level 111 mmol/L Carbon Dioxide Level 22 mmol/L Anion Gap 11.0 mmol/L Blood Urea Nitrogen 72 mg/dl Creatinine 3.38 mg/dl Est Creatinine Clear Calc Drug Dose 30.8 ml/min Estimated GFR () 22.6 Estimated GFR (Non- 19.5 BUN/Creatinine Ratio 21.4 Random Glucose 173 mg/dl Lactic Acid Level 0.8 mmol/L Calcium Level 7.9 mg/dl Magnesium Level 2.3 mg/dl Bedside Glucose (other) 177 mg/dl 196 mg/dl 220 mg/dl Test 08/15/17 13:20 08/15/17 14:29 08/15/17 16:21 08/15/17 17:04 Bedside Glucose (other) 223 mg/dl 203 mg/dl 215 mg/dl Test 08/15/17 17:59 Bedside Glucose (other) 199 mg/dl
[2017-08-15] MEDS ORDERED: CEFEPIME IV 1,000 MG in SYRINGE 0 ML IV SCH (20:00)
[2017-08-15] MEDS: SIMVASTATIN 20 MG TAB PO SCH (20:58)
[2017-08-15] MEDS: INSULIN GLARGINE SOLOSTAR 100 UNITS/ML 3 ML PEN SC SCH (21:00)
[2017-08-16] VITALS (17 sets, daily range): BP systolic 95–126; BP diastolic 52–87; PULSE 92–108; TEMP 36.3–37.2; O2SAT 94–100
[2017-08-16] MEDS ORDERED: VANCOMYCIN INJ 750 MG in SODIUM CHLORIDE 0.9% 250ML 250 ML IV ONE ×2
[2017-08-16] MEDS: INSULIN ASPART 100 UNITS/ML 3 ML PEN SC SCH ×6 (00:25→22:11)
[2017-08-16] MEDS ORDERED: INSULIN HUMAN REGULAR PER UNIT 10 UNITS in SYRINGE 9.9 ML IV SCH (00:30)
[2017-08-16] MEDS ORDERED: NURSING VERBAL MED ORDER ONE (00:45)
[2017-08-16] MEDS: SODIUM CHLOR 0.45% + 20MEQ KCL 1,000 ML IV SCH ×2 (01:16→05:40)
[2017-08-16] MEDS: LEVOTHYROXINE 50 MCG TAB PO SCH (05:40)
[2017-08-16] MEDS: HEPARIN SOD 5000 UNIT/0.5 ML CARP SQ SCH ×3 (05:41→22:09)
[2017-08-16 06:25] LABS: BASO % 0.4 %; BASO ABS # 0.02 K/uL (0-0.2); EOS % 3.6 %; EOS ABS # 0.19 K/uL (0-0.5); HEMATOCRIT 31.1 % (42-52); IG# 0.09 K/uL (0.00-0.02); LYMPH % 24.5 %; LYMPH ABS # 1.29 K/uL (1.2-3.4); MEAN CELL VOLUME 89.1 fL (80-100); MEAN CORPUSCULAR HEMOGLOBIN 28.7 pg (25-34); MEAN CORPUSCULAR HGB CONC 32.2 g/dl (32-36); MEAN PLATELET VOLUME 10.8 fL (7.4-10.4); MONO % 8.7 %; MONO ABS # 0.46 K/uL (0.11-0.59); NEUT % 61.1 %; NEUT ABS # 3.22 K/uL (1.4-6.5); PLATELET COUNT 110 K/uL (130-400); RED CELL DISTRIBUTION WIDTH CV 14.8 % (11.5-14.5); RED CELL DISTRIBUTION WIDTH SD 48.2 fL (36.4-46.3); WHITE BLOOD COUNT 5.27 K/uL (4.8-10.8)
[2017-08-16 06:29] LABS: CALCIUM 7.3 mg/dl (8.5-10.1); CREATININE 1.7 mg/dl (0.60-1.40); PHOSPHORUS 1.8 mg/dl (2.5-4.9); POTASSIUM 4.3 mmol/L (3.5-5.1)
[2017-08-16 07:35] LABS: HEMOGLOBIN A1C > 16.9 % (4.5-5.6)
[2017-08-16] MEDS: ASPIRIN 81 MG CHEW PO SCH (08:14)
[2017-08-16] MEDS: FLUCONAZOLE 100 MG TAB PO SCH (08:15)
[2017-08-16] MEDS: INSULIN GLARGINE SOLOSTAR 100 UNITS/ML 3 ML PEN SC SCH ×2 (08:19→17:41)
[2017-08-16] MEDS ORDERED: POT PHOSPHATE MONOBASIC W/ SOD TAB PO STA (09:01)
--- NOTE | 2017-08-16 09:55 | Critical Care Progress Note ---
Critical Care Progress Note Date of Service Aug 16, 2017. ICU Day ICU Day Number: [address] Larry Subjective No abdominal pain, no chest pain, no nausea, no vomiting, had bowel movement today Objective General: Alert. nontoxic. Skin: Warm, dry, Head: Atraumatic Ears, nose, mouth and throat: airway patent Cardiovascular: Normal peripheral perfusion Respiratory: no respiratory distress Gastrointestinal: Non distended Musculoskeletal: No deformity Assessment & Plan PLAN: Endocrine: * DKA * Removed dextrose containing solutions Fluids/Renal: Acute kidney injury * No hydronephrosis, hepatic steatosis noted on renal ultrasound * Stop additional fluid, able to take fluids by mouth Radiology report reviewed, asymmetric fullness of left kidney * Dedicated contrasted CT imaging of the kidneys was recommended, this will likely need to occur as an outpatient Neuro: * Neurogenic Bladder, Banuelos in place Resp: * Discontinue supplemental oxygen CV: * Hypotension: Suspicion of sepsis with etiology * Resolved * Troponin negative * Restart Norvasc tomorrow ID: * Abx: Cefepime and vancomycin * History concerning for urinary tract infection etiology * Funguria in the setting of neurogenic bladder and self cath'ing * Cultures pending * Continue antibiotics until urine culture finalized GI/Nutrition: * Patient tolerating diet * Hepatic steatosis * ALT mildly out of range and AST within normal limits, alkaline phosphatase mildly elevated * Will need follow-up with primary care provider regarding modifiable risk factors Heme: * H&H 10.3/32.8 * History of anemia we will send iron studies * No signs of acute bleeding * DVT Prophylaxis: Heparin SQ in place Transfer order to [facility] in place Data Medications: Current Inpatient Medications Medications (Trade) Dose Ordered Sig/[facility] Route Start Time Stop Time Status Last Admin Dose Admin Glucose (Glucose 40% Gel) 15-30 GRAMS 15 GRAMS... UD PRN PO 08/14/17 18:15 09/13/17 18:14 Glucose (Glucose Chew Tab) 4-8 Tablets 4 Tabl... UD PRN PO 08/14/17 18:15 09/13/17 18:14 Dextrose (Dextrose 50% 50ML Syringe) 25-50ML OF 50% DW IV FOR... UD PRN IV 08/14/17 18:15 09/13/17 18:14 Glucagon (Glucagon Inj) 1 mg UD PRN SQ 08/14/17 18:15 09/13/17 18:14 Heparin Sodium (Porcine) (Heparin Sq 5000 Unit/0.5ml) 5,000 unit Q8H SQ 08/14/17 22:00 09/13/17 21:59 08/16/17 05:41 5,000 UNIT Acetaminophen (Tylenol Tab) 650 mg Q4H PRN PO 08/14/17 19:45 09/13/17 19:44 Lorazepam (Ativan Tab) 0.5 mg Q4H PRN PO 08/14/17 19:45 09/13/17 19:44 Al Hydrox/Mg Hydrox/Simethicone (Maalox Max Susp) 15 ml Q4H PRN PO 08/14/17 19:45 09/13/17 19:44 Magnesium Hydroxide (Milk Of Magnesia Susp) 30 ml Q12H PRN PO 08/14/17 19:45 09/13/17 19:44 Ondansetron HCl (Zofran Inj) 4 mg Q6H PRN IV 08/14/17 19:45 09/13/17 19:44 Hydromorphone HCl (Dilaudid Tab) 0.5 mg Q4H PRN PO 08/14/17 19:45 08/28/17 19:44 Amlodipine Besylate (Norvasc Tab) 5 mg DAILY PO 08/15/17 09:00 09/14/17 08:59 Future Hold Aspirin (Aspirin Chew) 81 mg DAILY PO 08/15/17 09:00 09/14/17 08:59 08/16/17 08:14 81 MG Levothyroxine Sodium (Synthroid Tab) 50 mcg DAILYBB PO 08/15/17 06:00 09/14/17 05:59 08/16/17 05:40 50 MCG Simvastatin (Zocor Tab) 20 mg HS PO 08/14/17 21:00 09/13/17 20:59 08/15/17 20:58 20 MG Phenylephrine HCl 20 mg/Dextrose 502 ml @ 0 mls/hr Q0M PRN IV 08/15/17 00:40 09/14/17 00:39 08/15/17 06:46 84 MLS/HR Miscellaneous Information (Consult) 1 ea UD PRN N/A 08/15/17 09:00 08/17/17 08:59 Cefepime HCl 1000 mg/Syringe 11 ml @ 5.5 mls/min DAILY@2000 IV 08/15/17 20:00 08/28/17 19:59 08/15/17 19:45 5.5 MLS/MIN Miscellaneous Information (Consult Glycemic Management Pharmacy) 1 ea UD PRN N/A 08/15/17 09:15 09/14/17 09:14 Insulin Aspart (novoLOG ASPART) SLIDING SCALE ACHS SC 08/15/17 16:00 09/14/17 15:59 08/16/17 08:18 11 UNITS Insulin Glargine (Lantus Solostar Pen) BID SC 08/15/17 21:00 09/14/17 20:59 08/16/17 08:19 40 UNITS Cefepime HCl (Consult) 1 ea UD PRN N/A 08/15/17 14:15 09/14/17 14:14 Fluconazole (Diflucan Tab) 100 mg QAM PO 08/16/17 09:00 08/21/17 08:59 08/16/17 08:15 100 MG Potassium Chloride/Sodium Chloride 1,000 ml @ 200 mls/hr Q5H IV 08/16/17 00:45 09/15/17 00:44 08/16/17 05:40 200 MLS/HR Vital Signs: Date Time Temp Pulse Resp B/P (MAP) Pulse Ox O2 Delivery O2 Flow Rate FiO2 08/16/17 08:00 37.0 107 26 114/83 (93) 100 Room Air 08/16/17 08:00 100 Room Air 08/16/17 06:01 96 19 116/68 (84) 100 Room Air 08/16/17 05:01 92 17 96/52 (67) 97 Room Air 08/16/17 04:07 98 Room Air 08/16/17 04:01 37.0 100 20 100/68 (79) 100 Room Air 08/16/17 03:01 100 15 107/55 (72) 96 Room Air 08/16/17 02:01 94 14 99/57 (71) 97 Room Air 08/16/17 01:01 101 19 95/70 (78) 99 Room Air 08/16/17 00:08 98 Room Air 08/16/17 00:01 96 13 97/60 (72) 96 Room Air 08/15/17 23:01 102 20 106/76 (86) 100 Room Air 08/15/17 22:00 37.3 101 20 110/71 (84) 97 Room Air 08/15/17 20:00 98 Room Air 08/15/17 20:00 37.1 106 20 106/79 (88) 98 Room Air 08/15/17 18:00 37.7 103 20 118/78 (91) 100 Room Air 08/15/17 16:00 99 Room Air 08/15/17 16:00 36.9 100 20 117/96 (103) 99 Room Air 08/15/17 14:45 102 89/67 (74) 98 Room Air 08/15/17 14:30 104 112/66 (81) 99 Room Air 08/15/17 14:00 107 149/66 (93) 99 Room Air 08/15/17 13:00 105 18 128/57 (80) 95 Room Air 08/15/17 12:00 95 Room Air 08/15/17 12:00 37.0 105 22 141/69 (93) 94 Room Air 136/83 (100) 08/15/17 11:00 103 147/75 (99) 95 Room Air 08/15/17 10:30 95 134/65 (88) 93 Room Air 08/15/17 10:02 110 104/50 (68) 94 Room Air Laboratory Results: Last 24 Hours Test 08/15/17 10:30 08/15/17 12:37 08/15/17 13:20 08/15/17 14:29 Bedside Glucose (other) 196 mg/dl 220 mg/dl 223 mg/dl Test 08/15/17 16:21 08/15/17 17:04 08/15/17 17:59 08/15/17 19:29 Bedside Glucose (other) 203 mg/dl 215 mg/dl 199 mg/dl 176 mg/dl Test 08/15/17 19:52 08/15/17 20:54 08/16/17 00:15 08/16/17 00:16 Random Vancomycin Level 21.1 mcg/ml Bedside Glucose 208 mg/dl 322 mg/dl 309 mg/dl Test 08/16/17 03:57 08/16/17 05:39 08/16/17 07:22 08/16/17 08:50 Bedside Glucose 187 mg/dl 209 mg/dl White Blood Count 5.27 K/uL Red Blood Count 3.49 M/uL Hemoglobin 10.0 g/dL Hematocrit 31.1 % Mean Corpuscular Volume 89.1 fL Mean Corpuscular Hemoglobin 28.7 pg Mean Corpuscular Hemoglobin Concent 32.2 g/dl Platelet Count 110 K/uL Mean Platelet Volume 10.8 fL Neutrophils (%) (Auto) 61.1 % Lymphocytes (%) (Auto) 24.5 % Monocytes (%) (Auto) 8.7 % Eosinophils (%) (Auto) 3.6 % Basophils (%) (Auto) 0.4 % Neutrophils # (Auto) 3.22 K/uL Lymphocytes # (Auto) 1.29 K/uL Monocytes # (Auto) 0.46 K/uL Eosinophils # (Auto) 0.19 K/uL Basophils # (Auto) 0.02 K/uL RDW Standard Deviation 48.2 fL RDW Coefficient of Variation 14.8 % Immature Granulocyte % (Auto) 1.7 % Immature Granulocyte # (Auto) 0.09 K/uL Sodium Level 139 mmol/L Potassium Level 4.3 mmol/L Chloride Level 110 mmol/L Carbon Dioxide Level 24 mmol/L Anion Gap 5.0 mmol/L Blood Urea Nitrogen 34 mg/dl Creatinine 1.70 mg/dl Est Creatinine Clear Calc Drug Dose 62.0 ml/min Estimated GFR () 51.8 Estimated GFR (Non- 44.7 BUN/Creatinine Ratio 20.3 Random Glucose 185 mg/dl Estimated Average Glucose > 438 mg/dl Hemoglobin A1c > 16.9 % Calcium Level 7.3 mg/dl Phosphorus Level 1.8 mg/dl Magnesium Level 2.1 mg/dl Random Vancomycin Level 19.3 mcg/ml
--- NOTE | 2017-08-16 10:26 | Pharmacy Progress Note ---
Pharmacy Abx Dose Short Note Date of Service Aug 16, 2017. Assessment & Plan Assessment 52 year old male receiving cefepime x 14 days for UTI and empiric vancomycin Day # 3/14 of cefepime, Day 2 of vancomycin Random level last night ~11 hrs after loading dose was 21.1, additional 750 mg x 1 given at 0000. SCr improved to 1.7 Plan Vancomycin * Random level this AM was 19.3 ~9 hrs from previous, estimating half life ~18 hrs * Will start maintenance dose of 1500 mg q18H * Empiric set to stop at 3/4 @0859, pt should receive one 1500 mg dose unless physician continues Cefepime adjusted to 1 gm q12H for improving renal function. Pharmacy will continue to follow and will adjust dose/frequency as necessary. Thank you.
[2017-08-16] MEDS: CEFEPIME IV 1,000 MG in SYRINGE 0 ML IV SCH ×2 (10:58→22:12)
[2017-08-16] MEDS ORDERED: VANCOMYCIN INJ 1,500 MG in SODIUM CHLORIDE 0.9% 500ML 500 ML IV SCH (13:00)
--- NOTE | 2017-08-16 14:49 | Pharmacy Progress Note ---
Pharmacy Glycemic Short Note 2 Date of Service Aug 16, 2017. OUTPATIENT ANTIDIABETIC REGIMEN: * Glimepiride 1mg PO daily * Metformin 1,000mg PO BID Item Value Date Time Hemoglobin A1c > 16.9 % H 08/16/17 0539 Estimated Average Glucose > 438 mg/dl 08/16/17 0539 Item Value Date Time Bedside Glucose (other) 223 mg/dl H 08/15/17 1429 Bedside Glucose (other) 203 mg/dl H 08/15/17 1621 Bedside Glucose (other) 215 mg/dl H 08/15/17 1704 Bedside Glucose (other) 199 mg/dl H 08/15/17 1759 Bedside Glucose 208 mg/dl H 08/15/17 2054 Bedside Glucose 322 mg/dl H 08/16/17 0015 Bedside Glucose 309 mg/dl H 08/16/17 0016 Bedside Glucose 187 mg/dl H 08/16/17 0357 Bedside Glucose 209 mg/dl H 08/16/17 0722 Bedside Glucose 236 mg/dl H 08/16/17 1057 Bedside Glucose 231 mg/dl H 08/16/17 1127 ASSESSMENT: * 52yo T2DM male with extremely poor control of diabetes per A1c and severe HHS * Pt hydrated accordingly and initiated on IV insulin infusion 08/14 - 08/15 PM * Pt transitioned from IV to SQ insulin on 08/15. * Pt has been requiring 106+ units of SQ insulin (plus IV insulin infusion and bolus) over the past 24hrs with near adequate control * Since A1c is so high, we are slowing dropping BSGs towards euglycemia * Goal BSG range right now is to maintain BSGs in the 150-250mg/dl range. Then , will slowly work towards 140 -180mg/dl and then drop further to 110-140mg/dl. * Currently dosing Lantus based on BSG scale since true insulin needs are not yet known and we do not want to drop BSG too quickly. * Continuing weight based, high stress bolus insulin dosing PLAN FOR INPATIENT GLYCEMIC CONTROL: * Hold outpatient oral diabetes medications * Basal insulin * Lantus 30-50 units SQ BID based on BSG * BSG below 140mg/dl --> 40 units * BSG 140-179mg/dl --> 50 units * BSG 180mg/dl or above --> 60 units * Bolus insulin * NovoLog per scale ACHS or Q6hrs while NPO * Goal Range: Low 120 mg/dL - High 150 mg/dL * Correction Factor: 15 mg/dL/unit * Nutritional / Prandial insulin per carb ratio of 1 unit per 4 grams CHO consumed PLAN FOR DISCHARGE: * A1c >16.9% * Pt will need combination injection therapy at discharge with basal and prandial insulin components +/- metformin depending on renal function
[2017-08-16] MEDS: SIMVASTATIN 20 MG TAB PO SCH (22:07)
--- NOTE | 2017-08-16 23:37 | Progress Note ---
Subjective Date of Service: Aug 16, 2017. Subjective Pt evaluation today including: conversation w/ patient, physical exam, chart review, lab review, review of studies, conversation w/ reimbursement consultant, review of inpatient medication list Voiding: no voiding problems, no incontinence No abdominal pain, no chest pain, no nausea, no vomiting, had bowel movement today Problem List Medical Problems: (1) Altered mental status Status: Acute (2) Hyperkalemia Status: Acute (3) Hypotension Status: Acute (4) Sepsis Status: Acute (5) Urinary tract infection Status: Acute (6) Urinary tract infection associated with catheterization of urinary tract Status: Acute Review of Systems All Other Systems: Reviewed and Negative Objective Vital Signs Date Time Temp Pulse Resp B/P (MAP) Pulse Ox O2 Delivery O2 Flow Rate FiO2 08/16/17 19:30 Room Air 08/16/17 17:17 Room Air 08/16/17 15:26 36.5 97 18 126/87 (100) 95 Room Air 08/16/17 14:12 94 Room Air 08/16/17 11:23 37.2 108 16 122/57 (78) 94 Room Air 08/16/17 10:38 37.0 107 26 100 08/16/17 10:00 96 19 115/73 (87) 100 Room Air 08/16/17 08:00 37.0 107 26 114/83 (93) 100 Room Air 08/16/17 08:00 100 Room Air 08/16/17 06:01 96 19 116/68 (84) 100 Room Air 08/16/17 05:01 92 17 96/52 (67) 97 Room Air 08/16/17 04:07 98 Room Air 08/16/17 04:01 37.0 100 20 100/68 (79) 100 Room Air 08/16/17 03:01 100 15 107/55 (72) 96 Room Air 08/16/17 02:01 94 14 99/57 (71) 97 Room Air 08/16/17 01:01 101 19 95/70 (78) 99 Room Air 08/16/17 00:08 98 Room Air 08/16/17 00:01 96 13 97/60 (72) 96 Room Air Physical Exam General Appearance: WD/WN, no apparent distress Eyes: normal inspection Neck: supple, no adenopathy Cardiovascular: regular rate, rhythm, no edema, no murmur Abdomen: normal bowel sounds Extremities: normal range of motion Neurologic/Psychiatric: sports intern II-XII nml as tested, no motor/sensory deficits, alert, normal mood/affect, oriented x 3 Lymphatic: no adenopathy Laboratory Results Last 24 Hours Test 08/16/17 00:15 08/16/17 00:16 08/16/17 03:57 08/16/17 05:39 Bedside Glucose 322 mg/dl 309 mg/dl 187 mg/dl White Blood Count 5.27 K/uL Red Blood Count 3.49 M/uL Hemoglobin 10.0 g/dL Hematocrit 31.1 % Mean Corpuscular Volume 89.1 fL Mean Corpuscular Hemoglobin 28.7 pg Mean Corpuscular Hemoglobin Concent 32.2 g/dl Platelet Count 110 K/uL Mean Platelet Volume 10.8 fL Neutrophils (%) (Auto) 61.1 % Lymphocytes (%) (Auto) 24.5 % Monocytes (%) (Auto) 8.7 % Eosinophils (%) (Auto) 3.6 % Basophils (%) (Auto) 0.4 % Neutrophils # (Auto) 3.22 K/uL Lymphocytes # (Auto) 1.29 K/uL Monocytes # (Auto) 0.46 K/uL Eosinophils # (Auto) 0.19 K/uL Basophils # (Auto) 0.02 K/uL RDW Standard Deviation 48.2 fL RDW Coefficient of Variation 14.8 % Immature Granulocyte % (Auto) 1.7 % Immature Granulocyte # (Auto) 0.09 K/uL Sodium Level 139 mmol/L Potassium Level 4.3 mmol/L Chloride Level 110 mmol/L Carbon Dioxide Level 24 mmol/L Anion Gap 5.0 mmol/L Blood Urea Nitrogen 34 mg/dl Creatinine 1.70 mg/dl Est Creatinine Clear Calc Drug Dose 62.0 ml/min Estimated GFR () 51.8 Estimated GFR (Non- 44.7 BUN/Creatinine Ratio 20.3 Random Glucose 185 mg/dl Estimated Average Glucose > 438 mg/dl Hemoglobin A1c > 16.9 % Calcium Level 7.3 mg/dl Phosphorus Level 1.8 mg/dl Magnesium Level 2.1 mg/dl Test 08/16/17 07:22 08/16/17 08:50 08/16/17 10:57 08/16/17 11:27 Bedside Glucose 209 mg/dl 236 mg/dl 231 mg/dl Random Vancomycin Level 19.3 mcg/ml Test 08/16/17 16:37 08/16/17 20:23 Bedside Glucose 237 mg/dl 250 mg/dl Assessment and Plan 52yo T2DM male with extremely poor control diabetes per A1c and severe HHS * Pt hydrated accordingly and initiated on IV insulin infusion 3 - 3 PM * Pt transitioned from IV to SQ insulin on 08/15. * Pt has been requiring 106+ units of SQ insulin (plus IV insulin infusion and bolus) over the past 24hrs with near adequate control * Since A1c is so high, we are slowing dropping BSGs towards euglycemia * Goal BSG range right now is to maintain BSGs in the 150-250mg/dl range. Then , will slowly work towards 140 -180mg/dl and then drop further to 110-140mg/dl. * Currently dosing Lantus based on BSG scale since true insulin needs are not yet known and we do not want to drop BSG too quickly. * Continuing weight based, high stress bolus insulin dosing Acute kidney injury * No hydronephrosis, hepatic steatosis noted on renal ultrasound * Stop additional fluid, able to take fluids by mouth Radiology report reviewed, asymmetric fullness of left kidney * Dedicated contrasted CT imaging of the kidneys was recommended, this will likely need to occur as an outpatient CV: * Hypotension: --Resolved * Troponin negative * Restart Antihypertensive UTI: * Abx: Cefepime and vancomycin * History concerning for urinary tract infection etiology * Funguria in the setting of neurogenic bladder and self cath * Cultures pending * Continue antibiotics until urine culture finalized Hepatic steatosis * Patient tolerating diet * ALT mildly out of range and AST within normal limits, alkaline phosphatase mildly elevated * Will need follow-up with primary care provider regarding modifiable risk factors Anemia: * H&H 10.3/32.8 * History of anemia we will send iron studies * No signs of acute bleeding * DVT Prophylaxis: Heparin SQ in place Transfer order to [facility] Continued [facility] stay due to: multiple IV medications needed Discharge planning: home
[2017-08-17] MEDS: INSULIN ASPART 100 UNITS/ML 3 ML PEN SC SCH ×6 (00:53→20:40)
[2017-08-17 05:56] LABS: HEMATOCRIT 33.6 % (42-52); HEMOGLOBIN 10.8 g/dL (14.0-18.0); MEAN CELL VOLUME 88.7 fL (80-100); MEAN CORPUSCULAR HEMOGLOBIN 28.5 pg (25-34); MEAN CORPUSCULAR HGB CONC 32.1 g/dl (32-36); MEAN PLATELET VOLUME 10.5 fL (7.4-10.4); PLATELET COUNT 115 K/uL (130-400); RED CELL DISTRIBUTION WIDTH CV 14.7 % (11.5-14.5); RED CELL DISTRIBUTION WIDTH SD 47.9 fL (36.4-46.3); RETIC COUNT % 1.6 % (0.5-2.0); WHITE BLOOD COUNT 4.35 K/uL (4.8-10.8)
[2017-08-17] MEDS: HEPARIN SOD 5000 UNIT/0.5 ML CARP SQ SCH ×3 (06:28→22:17)
[2017-08-17] MEDS: LEVOTHYROXINE 50 MCG TAB PO SCH (06:29)
[2017-08-17 06:30] LABS: CALCIUM 7.3 mg/dl (8.5-10.1); CREATININE 1.25 mg/dl (0.60-1.40); PHOSPHORUS 2.4 mg/dl (2.5-4.9); POTASSIUM 4.4 mmol/L (3.5-5.1)
[2017-08-17 07:29] VITALS: BP 97/64; PULSE 105; TEMP 37; O2SAT 94
[2017-08-17] MEDS: ASPIRIN 81 MG CHEW PO SCH (09:07)
[2017-08-17] MEDS: FLUCONAZOLE 100 MG TAB PO SCH (09:08)
[2017-08-17] MEDS: AMLODIPINE BESYLATE 5 MG TAB PO SCH (09:11)
[2017-08-17] MEDS: INSULIN GLARGINE SOLOSTAR 100 UNITS/ML 3 ML PEN SC SCH ×2 (09:23→17:35)
[2017-08-17 09:27] VITALS: BP 139/76; PULSE 112
--- NOTE | 2017-08-17 10:32 | Progress Note ---
Subjective Date of Service: Aug 17, 2017. Subjective Pt evaluation today including: conversation w/ patient, physical exam, chart review, lab review, review of inpatient medication list Voiding: goodman catheter in place pt is seen and examined by me. pt denies cp, sob, dizziness, palpitation and loss of consciousness. Pt denies nausea, vomiting and diarrhea. Problem List Medical Problems: (1) Altered mental status Status: Acute (2) Hyperkalemia Status: Acute (3) Hypotension Status: Acute (4) Sepsis Status: Acute (5) Urinary tract infection Status: Acute (6) Urinary tract infection associated with catheterization of urinary tract Status: Acute Review of Systems All Other Systems: Reviewed and Negative Medications Medications (Trade) Dose Ordered Sig/[facility] Route Start Time Stop Time Status Last Admin Dose Admin Vancomycin HCl 1500 mg/Sodium Chloride 530 ml @ 200 mls/hr TODAY@1300 IV 08/16/17 13:00 08/17/17 08:59 DC 08/16/17 13:05 200 MLS/HR Cefepime HCl 1000 mg/Syringe 11 ml @ 5.5 mls/min Q12@1100,2300 IV 08/16/17 11:00 08/17/17 08:38 DC 08/16/17 22:12 5.5 MLS/MIN Insulin Aspart (novoLOG ASPART) SLIDING SCALE TODAY@0000,0400 SC 08/17/17 00:00 08/17/17 04:01 DC 08/17/17 04:34 3 UNITS Objective Vital Signs Date Time Temp Pulse Resp B/P (MAP) Pulse Ox O2 Delivery O2 Flow Rate FiO2 08/17/17 09:27 112 139/76 (97) 08/17/17 07:29 37.0 105 16 97/64 (75) 94 Room Air 08/16/17 23:50 94 Room Air 08/16/17 22:55 36.3 100 20 99/64 (76) 94 Room Air 08/16/17 19:30 Room Air 08/16/17 17:17 Room Air 08/16/17 15:26 36.5 97 18 126/87 (100) 95 Room Air 08/16/17 14:12 94 Room Air 08/16/17 11:23 37.2 108 16 122/57 (78) 94 Room Air 08/16/17 10:38 37.0 107 26 100 Physical Exam General Appearance: WD/WN, no apparent distress, + obese Eyes: normal inspection, EOMI Neck: supple, no adenopathy Cardiovascular: regular rate, rhythm, no gallop, no murmur Abdomen: normal bowel sounds, soft Extremities: normal range of motion, normal inspection, no pedal edema, no calf tenderness Neurologic/Psychiatric: alert, normal mood/affect, oriented x 3 Skin: normal color Lymphatic: no adenopathy Laboratory Results Last 24 Hours Test 08/16/17 10:57 08/16/17 11:27 08/16/17 16:37 08/16/17 20:23 Bedside Glucose 236 mg/dl 231 mg/dl 237 mg/dl 250 mg/dl Test 08/17/17 00:50 08/17/17 03:51 08/17/17 05:23 08/17/17 07:35 Bedside Glucose 169 mg/dl 191 mg/dl 209 mg/dl White Blood Count 4.35 K/uL Red Blood Count 3.79 M/uL Hemoglobin 10.8 g/dL Hematocrit 33.6 % Mean Corpuscular Volume 88.7 fL Mean Corpuscular Hemoglobin 28.5 pg Mean Corpuscular Hemoglobin Concent 32.1 g/dl Platelet Count 115 K/uL Mean Platelet Volume 10.5 fL RDW Standard Deviation 47.9 fL RDW Coefficient of Variation 14.7 % Neutrophils % (Manual) 58.7 % Lymphocytes % (Manual) 27.2 % Monocytes % (Manual) 1.8 % Eosinophils % (Manual) 2.6 % Basophils % (Manual) 1.8 % Metamyelocytes % 3.5 % Myelocytes % 4.4 % Neutrophils # (Manual) 2.55 K/uL Total Absolute Neutrophils 2.55 K/uL Lymphocytes # (Manual) 1.18 K/uL Total Absolute Lymphocytes 1.18 K/uL Monocytes # (Manual) 0.08 K/uL Eosinophils # (Manual) 0.11 K/uL Basophils # (Manual) 0.08 K/uL Metamyelocytes # 0.15 K/uL Myelocytes # 0.19 K/uL Large Platelets 1+ Absolute Reticulocyte Count 0.06 10^6/uL Percent Reticulocyte Count 1.6 % Sodium Level 138 mmol/L Potassium Level 4.4 mmol/L Chloride Level 109 mmol/L Carbon Dioxide Level 23 mmol/L Anion Gap 6.0 mmol/L Blood Urea Nitrogen 20 mg/dl Creatinine 1.25 mg/dl Est Creatinine Clear Calc Drug Dose 84.4 ml/min Estimated GFR () 75.2 Estimated GFR (Non- 64.9 BUN/Creatinine Ratio 15.7 Random Glucose 204 mg/dl Calcium Level 7.3 mg/dl Phosphorus Level 2.4 mg/dl Magnesium Level 2.1 mg/dl Iron Level 86 mcg/dl Total Iron Binding Capacity 175 mcg/dl Transferrin 139 mg/dl Transferrin % Saturation 44 % Ferritin 328.2 ng/ml Vitamin B12 Level 703 pg/mL Folate 12.93 ng/mL Assessment and Plan 52yo T2DM male with extremely poor control diabetes per A1c and severe HHS * s/p HHS and insulin drip * Pt transitioned from IV to SQ insulin on 08/15. * Pt has been requiring 106+ units of SQ insulin (plus IV insulin infusion and bolus) over the past 24hrs with near adequate control * Since A1c is so high, we are slowing dropping BSGs towards euglycemia * Goal BSG range right now is to maintain BSGs in the 150-250mg/dl range. Then , will slowly work towards 140 -180mg/dl and then drop further to 110-140mg/dl. * Currently dosing Lantus based on BSG scale since true insulin needs are not yet known and we do not want to drop BSG too quickly. * Continuing weight based, high stress bolus insulin dosing Acute kidney injury resolved * No hydronephrosis, hepatic steatosis noted on renal ultrasound * Stop additional fluid, able to take fluids by mouth Radiology report reviewed, asymmetric fullness of left kidney * Dedicated contrasted CT imaging of the kidneys was recommended, this will likely need to occur as an outpatient Hypotension: --Resolved Bp 139/76 stable --Troponin negative -- Continue Norvasc. UTI: * Abx: Cefepime and vancomycin * History concerning for urinary tract infection etiology * Funguria in the setting of neurogenic bladder and self cath * Cultures judy albicans * discontinue antibiotics 08/17 Hepatic steatosis * Patient tolerating diet * ALT mildly out of range and AST within normal limits, alkaline phosphatase mildly elevated * Will need follow-up with primary care provider regarding modifiable risk factors Anemia: * H&H 10.8/33.6 stable * History of anemia possible ACOD * No signs of acute bleeding * DVT Prophylaxis: Heparin SQ in place Dc in morning Continued [facility] stay due to: home environment unsafe for pt Discharge planning: home
[2017-08-17] MEDS ORDERED: CEFEPIME IV 2,000 MG in SYRINGE 7.5 ML IV SCH (11:00)
[2017-08-17 11:15] VITALS: O2SAT 94
--- NOTE | 2017-08-17 13:33 | Pharmacy Progress Note ---
Pharmacy Glycemic Short Note 2 Date of Service Aug 17, 2017. Item Value Date Time Bedside Glucose 209 mg/dl H 08/16/17 0722 Bedside Glucose 236 mg/dl H 08/16/17 1057 Bedside Glucose 231 mg/dl H 08/16/17 1127 Bedside Glucose 237 mg/dl H 08/16/17 1637 Bedside Glucose 250 mg/dl H 08/16/17 2023 Bedside Glucose 169 mg/dl H 08/17/17 0050 Bedside Glucose 191 mg/dl H 08/17/17 0351 Bedside Glucose 209 mg/dl H 08/17/17 0735 Bedside Glucose 219 mg/dl H 08/17/17 1134 Item Value Date Time Hemoglobin A1c > 16.9 % H 08/16/17 0539 Estimated Average Glucose > 438 mg/dl 08/16/17 0539 ASSESSMENT: * 52yo T2DM male with extremely poor control of diabetes per A1c and severe HHS * Pt hydrated accordingly and initiated on IV insulin infusion 08/14 - 08/15 PM * Pt transitioned from IV to SQ insulin on 08/15. * Pt has been requiring 154+ units of SQ insulin over the past 24hrs with near adequate control * Since A1c is so high, we are slowing dropping BSGs towards euglycemia * Goal BSG range right now is to maintain BSGs in the 150-250mg/dl range. Then , will slowly work towards 140 -180mg/dl and then drop further to 110-140mg/dl. * Currently dosing Lantus based on BSG scale since true insulin needs are not yet known and we do not want to drop BSG too quickly. * AM fasting BSG remains elevated @ 209 mg/dl x 2 days. Will increase Lantus dose * Post-Prandial BSGs remain elevated ~ 230-250mg/dl. This is not terrible given his A1c of >16% but seems reasonable at this point to tighten parameters for goal of 140-180 mg/dl PLAN FOR INPATIENT GLYCEMIC CONTROL: * Hold outpatient oral diabetes medications * Basal insulin * Lantus 60-70 units SQ BID based on BSG * BSG below 140mg/dl --> 60 units * BSG 140mg/dl or above --> 70 units * Bolus insulin * NovoLog per scale ACHS or Q6hrs while NPO * Goal Range: Low 120 mg/dL - High 150 mg/dL * Correction Factor: 10 mg/dL/unit * Nutritional / Prandial insulin per carb ratio of 1 unit per 2 grams CHO consumed PLAN FOR DISCHARGE: A1c >16.9% * Pt will need combination injection therapy at discharge with basal and prandial insulin components +/- metformin depending on renal function * At this time, recommend: * Lantus (vs NPH if cost is an issue) 65 units SQ BID + NovoLog (vs Regular if cost is an issue) 30 units with meals three times daily * Total daily insulin dose = 220 units/day * Alternatively, could consider a pre-mixed insulin of Novolin 70/30 insulin 150 units SQ daily in the morning with breakfast + 70 units SQ daily with dinner * Follow up w/ Alicia on Saturday 08/19 for scheduled appt where insulin doses can be titrated as needed based on BSGs
[2017-08-17] MEDS ORDERED: NURSING VERBAL MED ORDER ONE (14:45)
[2017-08-17 15:18] VITALS: BP 114/70; PULSE 107; TEMP 36.7; O2SAT 94
[2017-08-17] MEDS: SIMVASTATIN 20 MG TAB PO SCH (20:36)
[2017-08-17 22:55] VITALS: BP 110/69; PULSE 102; TEMP 36.9; O2SAT 95
[2017-08-18] MEDS: LEVOTHYROXINE 50 MCG TAB PO SCH (05:26)
[2017-08-18] MEDS: HEPARIN SOD 5000 UNIT/0.5 ML CARP SQ SCH ×3 (05:27→21:18)
[2017-08-18 07:37] LABS: HEMATOCRIT 34.5 % (42-52); HEMOGLOBIN 11.1 g/dL (14.0-18.0); MEAN CELL VOLUME 88.5 fL (80-100); MEAN CORPUSCULAR HEMOGLOBIN 28.5 pg (25-34); MEAN CORPUSCULAR HGB CONC 32.2 g/dl (32-36); MEAN PLATELET VOLUME 10.6 fL (7.4-10.4); NUCLEATED RED BLOOD CELL ABS 0.02 K/uL (0-0); PLATELET COUNT 116 K/uL (130-400); RED CELL DISTRIBUTION WIDTH CV 14.8 % (11.5-14.5); RED CELL DISTRIBUTION WIDTH SD 47.6 fL (36.4-46.3); WHITE BLOOD COUNT 5.35 K/uL (4.8-10.8)
[2017-08-18 07:40] VITALS: BP 126/84; PULSE 86; TEMP 36.8; O2SAT 94
[2017-08-18 08:04] LABS: CALCIUM 7.9 mg/dl (8.5-10.1); CREATININE 1.12 mg/dl (0.60-1.40); POTASSIUM 4.3 mmol/L (3.5-5.1)
[2017-08-18 08:05] LABS: PHOSPHORUS 2.7 mg/dl (2.5-4.9)
[2017-08-18] MEDS: INSULIN ASPART 100 UNITS/ML 3 ML PEN SC SCH ×4 (08:27→19:51)
[2017-08-18] MEDS: INSULIN GLARGINE SOLOSTAR 100 UNITS/ML 3 ML PEN SC SCH ×2 (08:29→19:52)
[2017-08-18] MEDS: FLUCONAZOLE 100 MG TAB PO SCH (08:37)
[2017-08-18] MEDS: AMLODIPINE BESYLATE 5 MG TAB PO SCH (08:38)
[2017-08-18 09:15] VITALS: O2SAT 94
[2017-08-18] MEDS: ASPIRIN 81 MG CHEW PO SCH (09:43)
[2017-08-18 15:15] VITALS: BP 107/59; TEMP 36.7; O2SAT 93
[2017-08-18 15:17] VITALS: BP 125/79; PULSE 103; TEMP 36.7; O2SAT 93
[2017-08-18] MEDS: ACETAMINOPHEN 325 MG TAB PO PRN (16:58)
[2017-08-18] MEDS: SIMVASTATIN 20 MG TAB PO SCH (19:42)
--- NOTE | 2017-08-18 19:53 | Hospitalist Progress Note ---
Hospitalist Progress Note Date of Service Aug 18, 2017. Subjective Pt evaluation today including: conversation w/ patient, physical exam, chart review, lab review, review of studies, review of inpatient medication list Patient seen and evaluated. No acute events overnight. Patient expresses desire to change his diet and implement a walking program. Patient states that he now understands the severity of having high sugars. Patient is in agreement to doing injections but would appreciate home services to help with patient education. Patient's electrolyte abnormalities are resolved. Tolerating a diet. Expresses no other complaints. Constitutional: No fever, No chills Respiratory: No cough, No shortness of breath Cardiovascular: No chest pain Abdomen: No pain, No nausea, No vomiting, No diarrhea, No constipation Musculoskeletal: No swelling, No calf pain Male : No dysuria Heme: No abnormal bleeding/bruising Endo: No excessive thirst, No excessive urination Medications Current Inpatient Medications Medications (Trade) Dose Ordered Sig/Blade Route Start Time Stop Time Status Last Admin Dose Admin Glucose (Glucose 40% Gel) 15-30 GRAMS 15 GRAMS... UD PRN PO 08/14/17 18:15 09/13/17 18:14 Glucose (Glucose Chew Tab) 4-8 Tablets 4 Tabl... UD PRN PO 08/14/17 18:15 09/13/17 18:14 Dextrose (Dextrose 50% 50ML Syringe) 25-50ML OF 50% DW IV FOR... UD PRN IV 08/14/17 18:15 09/13/17 18:14 Glucagon (Glucagon Inj) 1 mg UD PRN SQ 08/14/17 18:15 09/13/17 18:14 Heparin Sodium (Porcine) (Heparin Sq 5000 Unit/0.5ml) 5,000 unit Q8H SQ 08/14/17 22:00 09/13/17 21:59 08/18/17 14:10 5,000 UNIT Acetaminophen (Tylenol Tab) 650 mg Q4H PRN PO 08/14/17 19:45 09/13/17 19:44 08/18/17 16:58 650 MG Lorazepam (Ativan Tab) 0.5 mg Q4H PRN PO 08/14/17 19:45 09/13/17 19:44 Al Hydrox/Mg Hydrox/Simethicone (Maalox Max Susp) 15 ml Q4H PRN PO 08/14/17 19:45 09/13/17 19:44 Magnesium Hydroxide (Milk Of Magnesia Susp) 30 ml Q12H PRN PO 08/14/17 19:45 09/13/17 19:44 Ondansetron HCl (Zofran Inj) 4 mg Q6H PRN IV 08/14/17 19:45 09/13/17 19:44 Hydromorphone HCl (Dilaudid Tab) 0.5 mg Q4H PRN PO 08/14/17 19:45 08/28/17 19:44 Amlodipine Besylate (Norvasc Tab) 5 mg DAILY PO 08/15/17 09:00 09/14/17 08:59 Future hold 08/18/17 08:38 5 MG Aspirin (Aspirin Chew) 81 mg DAILY PO 08/15/17 09:00 09/14/17 08:59 08/18/17 09:43 81 MG Levothyroxine Sodium (Synthroid Tab) 50 mcg DAILYBB PO 08/15/17 06:00 09/14/17 05:59 08/18/17 05:26 50 MCG Simvastatin (Zocor Tab) 20 mg HS PO 08/14/17 21:00 09/13/17 20:59 08/18/17 19:42 20 MG Miscellaneous Information (Consult Glycemic Management Pharmacy) 1 ea UD PRN N/A 08/15/17 09:15 09/14/17 09:14 Insulin Aspart (novoLOG ASPART) SLIDING SCALE ACHS SC 08/15/17 16:00 09/14/17 15:59 08/18/17 19:51 6 UNITS Insulin Glargine (Lantus Solostar Pen) BID SC 08/15/17 21:00 09/14/17 20:59 08/18/17 19:52 60 UNITS Fluconazole (Diflucan Tab) 100 mg QAM PO 08/16/17 09:00 08/21/17 08:59 08/18/17 08:37 100 MG Objective Vital Signs Date Time Temp Pulse Resp B/P (MAP) Pulse Ox O2 Delivery O2 Flow Rate FiO2 08/18/17 15:17 36.7 103 20 125/79 (94) 93 08/18/17 09:15 94 Room Air 08/18/17 07:40 Room Air 08/18/17 07:40 36.8 86 15 126/84 (98) 94 Room Air 08/17/17 23:10 Room Air 08/17/17 22:55 36.9 102 20 110/69 (83) 95 Room Air 08/17/17 20:00 Room Air Physical Exam General Appearance: WD/WN, no apparent distress, + obese Eyes: sclerae normal ENT: hearing grossly normal Neck: supple, no JVD, trachea midline Respiratory/Chest: lungs clear, normal breath sounds, no respiratory distress, no accessory muscle use Cardiovascular: regular rate, rhythm Abdomen: normal bowel sounds, non tender, soft Extremities: no pedal edema Neurologic/Psychiatric: alert, oriented x 3 Skin: normal color, warm/dry Laboratory Results Last 24 Hours Test 08/17/17 19:58 08/18/17 07:20 08/18/17 07:24 08/18/17 11:36 Bedside Glucose 246 mg/dl 229 mg/dl 221 mg/dl White Blood Count 5.35 K/uL Red Blood Count 3.90 M/uL Hemoglobin 11.1 g/dL Hematocrit 34.5 % Mean Corpuscular Volume 88.5 fL Mean Corpuscular Hemoglobin 28.5 pg Mean Corpuscular Hemoglobin Concent 32.2 g/dl Platelet Count 116 K/uL Mean Platelet Volume 10.6 fL RDW Standard Deviation 47.6 fL RDW Coefficient of Variation 14.8 % Nucleated RBC Absolute Count (auto) 0.02 K/uL Neutrophils % (Manual) 56.9 % Lymphocytes % (Manual) 23.7 % Monocytes % (Manual) 1.8 % Eosinophils % (Manual) 4.4 % Basophils % (Manual) 0.9 % Metamyelocytes % 4.4 % Myelocytes % 7.9 % Nucleated Red Blood Cells % 0.5 % Neutrophils # (Manual) 3.04 K/uL Total Absolute Neutrophils 3.04 K/uL Lymphocytes # (Manual) 1.27 K/uL Total Absolute Lymphocytes 1.27 K/uL Monocytes # (Manual) 0.10 K/uL Eosinophils # (Manual) 0.24 K/uL Basophils # (Manual) 0.05 K/uL Metamyelocytes # 0.24 K/uL Myelocytes # 0.42 K/uL Large Platelets 1+ Sodium Level 138 mmol/L Potassium Level 4.3 mmol/L Chloride Level 106 mmol/L Carbon Dioxide Level 24 mmol/L Anion Gap 7.0 mmol/L Blood Urea Nitrogen 14 mg/dl Creatinine 1.12 mg/dl Est Creatinine Clear Calc Drug Dose 93.6 ml/min Estimated GFR () 85.9 Estimated GFR (Non- 74.1 BUN/Creatinine Ratio 12.7 Random Glucose 235 mg/dl Calcium Level 7.9 mg/dl Phosphorus Level 2.7 mg/dl Magnesium Level 2.1 mg/dl Test 08/18/17 16:31 Bedside Glucose 103 mg/dl Assessment and Plan Metabolic Acidosis 2/2 HHS with T2DM: RESOLVED - Patient presented with BSG of 1300+ on admission - A1c greater than 16.9 -Pharmacy following for glycemic management -appreciate recommendations for outpatient therapy --Appreciate diabetic coordinator for assistance with regimen -will need to assess cost KIM: RESOLVED -This was the result of volume depletion due to significant hyperglycemia -Continues to make adequate urine and electrolyte abnormalities and elevated creatinine resolved Hypotension: RESOLVED -Again this is likely related to severe volume depletion in the setting of hyperglycemia R Kidney Fullness: -Recommend CT with contrast to further assess -can be coordinated as an outpatient HTN: -Norvasc 5 mg daily Hypothyroidism: -Synthroid 50 mcg daily HLD: -Zocor 20 mg daily Hepatic Steatosis: -Recommend outpatient monitoring -hopeful improvement with lifestyle changes Chronic Anemia: STABLE DVT Prophylaxis: Heparin 5000 units Q8H Disposition: Possible D/C tomorrow pending insulin regimen finalized and cost assessed Discharge planning: home with home health
[2017-08-19] VITALS: BP 126/87; PULSE 95; TEMP 36.8; O2SAT 95
[2017-08-19] MEDS: HEPARIN SOD 5000 UNIT/0.5 ML CARP SQ SCH ×3 (05:57→21:43)
[2017-08-19] MEDS: LEVOTHYROXINE 50 MCG TAB PO SCH (05:57)
[2017-08-19 06:38] LABS: HEMATOCRIT 32.3 % (42-52); HEMOGLOBIN 10.3 g/dL (14.0-18.0); MEAN CELL VOLUME 88.5 fL (80-100); MEAN CORPUSCULAR HEMOGLOBIN 28.2 pg (25-34); MEAN CORPUSCULAR HGB CONC 31.9 g/dl (32-36); MEAN PLATELET VOLUME 10.2 fL (7.4-10.4); NUCLEATED RED BLOOD CELL ABS 0.03 K/uL (0-0); PLATELET COUNT 136 K/uL (130-400); RED CELL DISTRIBUTION WIDTH CV 14.4 % (11.5-14.5); RED CELL DISTRIBUTION WIDTH SD 46.6 fL (36.4-46.3); WHITE BLOOD COUNT 6.11 K/uL (4.8-10.8)
[2017-08-19 07:16] LABS: CALCIUM 7.8 mg/dl (8.5-10.1); CREATININE 1.06 mg/dl (0.60-1.40); POTASSIUM 4.1 mmol/L (3.5-5.1)
[2017-08-19 07:36] VITALS: BP 141/91; PULSE 95; TEMP 36.9; O2SAT 95
[2017-08-19] MEDS: AMLODIPINE BESYLATE 5 MG TAB PO SCH (08:34)
[2017-08-19] MEDS: FLUCONAZOLE 100 MG TAB PO SCH (08:34)
[2017-08-19] MEDS: INSULIN ASPART 100 UNITS/ML 3 ML PEN SC SCH ×4 (08:40→21:42)
[2017-08-19] MEDS: INSULIN GLARGINE SOLOSTAR 100 UNITS/ML 3 ML PEN SC SCH ×2 (08:40→21:43)
[2017-08-19] MEDS: ASPIRIN 81 MG CHEW PO SCH (08:42)
[2017-08-19] MEDS: MAGNESIUM HYDROXIDE SUSP 30 ML UDC PO PRN (09:00)
--- NOTE | 2017-08-19 13:12 | Pharmacy Progress Note ---
Pharmacy Glycemic Short Note 2 Date of Service Aug 19, 2017. Item Value Date Time Hemoglobin A1c > 16.9 % H 08/16/17538 Estimated Average Glucose > 438 mg/dl 08/16/17538 ASSESSMENT: * Mr Robert is a 52 y/o M with a PMH of HTN, HLD, BPH, HTN and poorly controlled type 2 diabetes admitted with severe HHS. The patient was initially started on IV insulin 08/14/17 and transitioned to SQ insulin on 08/15/17. The patient has been requiring > 200 units of insulin for the past two days. The patient is slowly working towards lower blood sugars with values yesterday of 693-220-112-208 mg/dL. Fasting today was 192 mg/dL (first fasting below 200 mg/ dL). The patient received 227 units of insulin yesterday (130 units of basal). Most blood sugars remain above 200 mg/dL - dinner blood sugar most definitely secondary to stacking. * In terms of Lantus, the patient's current regimen is slightly weighted towards the basal side. (57% for basal). Will continue with current scale as this is the first fasting below 200 mg/dL. Expect that the patient will need around 130 units/day for right now- this will decline as time goes on. * In terms of Novolog, the patient appears to stack from breakfast and lunch causing rebound at bedtime. Therefore loosened carbohydrate ratio slightly to 2.5 grams per unit of carbohydrates to prevent over-stacking. Also lowered the goal range slightly to prevent any carbohydrate coverage from being subtracted. PLAN FOR INPATIENT GLYCEMIC CONTROL: * Hold outpatient oral diabetes medications * Basal insulin * Lantus 60-70 units SQ BID based on BSG * BSG below 140mg/dl --> 60 units * BSG 140mg/dl or above -->70 units * Bolus insulin * NovoLog per scale ACHS or Q6hrs while NPO * Goal Range: Low 110 mg/dL - High 140 mg/dL * Correction Factor: 10 mg/dL/unit * Nutritional / Prandial insulin per carb ratio of 1 unit per 2.5 grams CHO consumed PLAN FOR DISCHARGE: A1c >16.9% * Pt will need combination injection therapy at discharge with basal and prandial insulin components +/- metformin depending on renal function * At this time, recommend: * Lantus (vs NPH if cost is an issue) 65 units SQ BID + NovoLog (vs Regular if cost is an issue) 30 units with meals three times daily * Total daily insulin dose = 220 units/day * Alternatively, could consider a pre-mixed insulin of Novolin 70/30 insulin 150 units SQ daily in the morning with breakfast + 70 units SQ daily with dinner * Follow up vandana Vargas on Saturday 08/26 for scheduled appt where insulin doses can be titrated as needed based on BSGs
[2017-08-19] MEDS ORDERED: HMLIS SC (14:12)
[2017-08-19] MEDS ORDERED: DFL100 PO (14:12)
[2017-08-19] MEDS ORDERED: INSDGIPEN SC (14:12)
--- NOTE | 2017-08-19 14:21 | Discharge Instructions ---
Discharge Instructions Date of Service Aug 19, 2017. Admission Reason for Admission: Rich, Dka Discharge Discharge Diagnosis / Problem: HHS, RICH Discharge Goals Goal(s): Improve function, Improve disease control Activity Recommendations Activity Limitations: resume your previous activity . Instructions / Follow-Up Instructions / Follow-Up Medications: - FLUCONAZOLE: treating fungal urinary tract infection, take daily for 5 more days - LANTUS: 65 units in the morning and the evening - HUMALOG KWIKPEN: 30 units three times a day with meals Diabetes type II with HHS, metabolic acidosis acidosis resolved for several days, renal function back to baseline sugars adequately controlled on Lantus and Novolog while here check sugars in the morning, prior to lunch, prior to dinner and in the evening, record your sugars randomly check a sugar 2 hours after lunch three days a week, record your sugars please follow a diabetic diet as outlined by telehealth nurse educator watch for signs of hypoglycemia if your morning sugar is less than 120 then take only 35 units of Lantus in the morning it is going to take weeks to fine tune your insulin regime as we discussed, with healthy eating and exercise and sugar control, you will lose weight which will dramatically help sugar control Fungal UTI: urine culture grew Deloris, sensitive to Diflucan Acute renal failure: due to dehydration, resolved with IV fluids kidney function back to baseline FOLLOW UP - Alicia Shelton on 08/26 for hospital follow up, bring recording of glucose readings to help Alicia determine further insulin dosing Current Hospital Diet Patient's current hospital diet: Diabetes Type 2 Diet Discharge Diet Recommended Diet: Diabetes Type 2 Diet Pending Studies Studies pending at discharge: no Laboratory Results Hemoglobin A1c Test 08/16/17 05:39 Range/Units Estimated Average Glucose > 438 mg/dl Hemoglobin A1c > 16.9 H 4.5-5.6 % Medical Emergencies . Who to Call and When: Medical Emergencies: If at any time you feel your situation is an emergency, please call 911 immediately. . Non-Emergent Contact Non-Emergency issues call your: Primary Care Provider Call Non-Emergent contact if: you have any medication questions . . "Provider Documentation" section prepared by Raudel Ortiz. . [place] Drug Monitoring Program Search Results: no issues identified
--- NOTE | 2017-08-19 15:06 | Progress Note ---
Subjective Date of Service: Aug 19, 2017. Subjective Pt evaluation today including: conversation w/ patient, conversation w/ family , physical exam, lab review, review of inpatient medication list Pain: no pain PO Intake: adequate Voiding: requires PRN straight cath patient doing well, administering insulin today under direction of RN discussed case with pharmacy, have a plan for discharge patient cannot get a ride until tomorrow morning Problem List Medical Problems: (1) Altered mental status Status: Acute (2) Hyperkalemia Status: Acute (3) Hypotension Status: Acute (4) Sepsis Status: Acute (5) Urinary tract infection Status: Acute (6) Urinary tract infection associated with catheterization of urinary tract Status: Acute Review of Systems All Other Systems: Reviewed and Negative Medications Current Inpatient Medications Medications (Trade) Dose Ordered Sig/Blade Route Start Time Stop Time Status Last Admin Dose Admin Glucose (Glucose 40% Gel) 15-30 GRAMS 15 GRAMS... UD PRN PO 08/14/17 18:15 09/13/17 18:14 Glucose (Glucose Chew Tab) 4-8 Tablets 4 Tabl... UD PRN PO 08/14/17 18:15 09/13/17 18:14 Dextrose (Dextrose 50% 50ML Syringe) 25-50ML OF 50% DW IV FOR... UD PRN IV 08/14/17 18:15 09/13/17 18:14 Glucagon (Glucagon Inj) 1 mg UD PRN SQ 08/14/17 18:15 09/13/17 18:14 Heparin Sodium (Porcine) (Heparin Sq 5000 Unit/0.5ml) 5,000 unit Q8H SQ 08/14/17 22:00 09/13/17 21:59 08/19/17 14:00 5,000 UNIT Acetaminophen (Tylenol Tab) 650 mg Q4H PRN PO 08/14/17 19:45 09/13/17 19:44 08/18/17 16:58 650 MG Lorazepam (Ativan Tab) 0.5 mg Q4H PRN PO 08/14/17 19:45 09/13/17 19:44 Al Hydrox/Mg Hydrox/Simethicone (Maalox Max Susp) 15 ml Q4H PRN PO 08/14/17 19:45 09/13/17 19:44 Magnesium Hydroxide (Milk Of Magnesia Susp) 30 ml Q12H PRN PO 08/14/17 19:45 09/13/17 19:44 08/19/17 09:00 30 ML Ondansetron HCl (Zofran Inj) 4 mg Q6H PRN IV 08/14/17 19:45 09/13/17 19:44 Hydromorphone HCl (Dilaudid Tab) 0.5 mg Q4H PRN PO 08/14/17 19:45 08/28/17 19:44 Amlodipine Besylate (Norvasc Tab) 5 mg DAILY PO 08/15/17 09:00 09/14/17 08:59 Future hold 08/19/17 08:34 5 MG Aspirin (Aspirin Chew) 81 mg DAILY PO 08/15/17 09:00 09/14/17 08:59 08/19/17 08:42 81 MG Levothyroxine Sodium (Synthroid Tab) 50 mcg DAILYBB PO 08/15/17 06:00 09/14/17 05:59 08/19/17 05:57 50 MCG Simvastatin (Zocor Tab) 20 mg HS PO 08/14/17 21:00 09/13/17 20:59 08/18/17 19:42 20 MG Miscellaneous Information (Consult Glycemic Management Pharmacy) 1 ea UD PRN N/A 08/15/17 09:15 09/14/17 09:14 Insulin Aspart (novoLOG ASPART) SLIDING SCALE ACHS SC 08/15/17 16:00 09/14/17 15:59 08/19/17 12:35 23 UNITS Insulin Glargine (Lantus Solostar Pen) BID SC 08/15/17 21:00 09/14/17 20:59 08/19/17 08:40 70 UNITS Fluconazole (Diflucan Tab) 100 mg QAM PO 08/16/17 09:00 08/21/17 08:59 08/19/17 08:34 100 MG Objective Vital Signs Date Time Temp Pulse Resp B/P (MAP) Pulse Ox O2 Delivery O2 Flow Rate FiO2 08/19/17 08:20 Room Air 08/19/17 07:36 36.9 95 16 141/91 (108) 95 08/19/17 00:00 36.8 95 20 126/87 (100) 95 Room Air 08/18/17 23:59 Room Air 08/18/17 19:30 Room Air 08/18/17 15:17 36.7 103 20 125/79 (94) 93 Physical Exam General Appearance: no apparent distress, + obese Eyes: normal inspection, EOMI, sclerae normal ENT: normal ENT inspection, hearing grossly normal, pharynx normal Neck: supple, no adenopathy, no JVD, trachea midline Respiratory/Chest: chest non-tender, lungs clear, normal breath sounds, no respiratory distress, no accessory muscle use Cardiovascular: regular rate, rhythm, no edema, no gallop, no JVD, no murmur Abdomen: normal bowel sounds, non tender, soft, no organomegaly Extremities: normal range of motion, non-tender, normal inspection, no pedal edema, no calf tenderness, pelvis stable 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, no motor/sensory deficits, alert, normal mood/affect, oriented x 3 Skin: normal color, warm/dry, no rash Laboratory Results Last 24 Hours Test 08/18/17 16:31 08/18/17 19:39 08/19/17 05:58 08/19/17 07:29 Bedside Glucose 103 mg/dl 208 mg/dl 192 mg/dl White Blood Count 6.11 K/uL Red Blood Count 3.65 M/uL Hemoglobin 10.3 g/dL Hematocrit 32.3 % Mean Corpuscular Volume 88.5 fL Mean Corpuscular Hemoglobin 28.2 pg Mean Corpuscular Hemoglobin Concent 31.9 g/dl Platelet Count 136 K/uL Mean Platelet Volume 10.2 fL RDW Standard Deviation 46.6 fL RDW Coefficient of Variation 14.4 % Nucleated RBC Absolute Count (auto) 0.03 K/uL Neutrophils % (Manual) 61.2 % Lymphocytes % (Manual) 23.3 % Monocytes % (Manual) 5.2 % Metamyelocytes % 4.3 % Myelocytes % 6.0 % Nucleated Red Blood Cells % 0.5 % Neutrophils # (Manual) 3.74 K/uL Total Absolute Neutrophils 3.74 K/uL Lymphocytes # (Manual) 1.42 K/uL Total Absolute Lymphocytes 1.42 K/uL Monocytes # (Manual) 0.32 K/uL Metamyelocytes # 0.26 K/uL Myelocytes # 0.37 K/uL Red Blood Cell Morphology Unremarkable Sodium Level 136 mmol/L Potassium Level 4.1 mmol/L Chloride Level 104 mmol/L Carbon Dioxide Level 27 mmol/L Anion Gap 5.0 mmol/L Blood Urea Nitrogen 13 mg/dl Creatinine 1.06 mg/dl Est Creatinine Clear Calc Drug Dose 99.1 ml/min Estimated GFR () 91.8 Estimated GFR (Non- 79.2 BUN/Creatinine Ratio 12.2 Random Glucose 168 mg/dl Calcium Level 7.8 mg/dl Phosphorus Level 3.0 mg/dl Magnesium Level 1.9 mg/dl Test 08/19/17 11:15 Bedside Glucose 194 mg/dl Assessment and Plan Metabolic Acidosis 2/2 HHS with T2DM: RESOLVED - Patient presented with BSG of 1300+ on admission - A1c greater than 16.9 - sugars are now consistently less than 200 continue Lantus 65 units BID, Novolog 30 units TID meals will resume Metformin on discharge since KIM resolved - ready for discharge tomorrow KIM: RESOLVED - due to dehydration with HHS, volume depletion - resolved completely, Cr is 1.0, adequate UO R Kidney Fullness: -Recommend CT with contrast to further assess needs to be done as outpatient Deloris UTI continue Diflucan will complete several more days on discharge due to straight catheterizations HTN: -Norvasc 5 mg daily, BP stable on this dose Hypothyroidism: -Synthroid 50 mcg daily HLD: -Zocor 20 mg daily Hepatic Steatosis: -can be followed by PCP, should improve with weight loss and glucose control Obesity: educated on importance of weight loss, he seems motivated to make changes Chronic Anemia: STABLE DVT Prophylaxis: Heparin 5000 units Q8H Continued [facility] stay due to: home environment unsafe for pt Discharge planning: home with home health
[2017-08-19 15:46] VITALS: BP 128/86; PULSE 98; TEMP 36.9; O2SAT 95
[2017-08-19 15:48] VITALS: BMI 39.3
[2017-08-19 16:02] VITALS: O2SAT 95
[2017-08-19] MEDS: ACETAMINOPHEN 325 MG TAB PO PRN ×2 (17:22→21:45)
[2017-08-19] MEDS: SIMVASTATIN 20 MG TAB PO SCH (21:36)
[2017-08-19 23:31] VITALS: BP 116/74; PULSE 92; TEMP 36.9; O2SAT 96
[2017-08-19 23:59] VITALS: O2SAT 95
[2017-08-20] MEDS ORDERED: IBUPROFEN 600 MG TAB PO PRN (03:15)
[2017-08-20] MEDS: LEVOTHYROXINE 50 MCG TAB PO SCH (05:46)
[2017-08-20] MEDS: HEPARIN SOD 5000 UNIT/0.5 ML CARP SQ SCH (05:47)
[2017-08-20 07:40] VITALS: BP 128/82; PULSE 94; TEMP 37; O2SAT 96
[2017-08-20] MEDS: ASPIRIN 81 MG CHEW PO SCH (08:06)
[2017-08-20] MEDS: AMLODIPINE BESYLATE 5 MG TAB PO SCH (08:07)
[2017-08-20] MEDS: FLUCONAZOLE 100 MG TAB PO SCH (08:07)
[2017-08-20] MEDS: INSULIN GLARGINE SOLOSTAR 100 UNITS/ML 3 ML PEN SC SCH (08:24)
[2017-08-20] MEDS: INSULIN ASPART 100 UNITS/ML 3 ML PEN SC SCH (08:25)
--- NOTE | 2017-08-20 08:37 | Discharge Summary ---
Discharge Summary Date of Service Aug 20, 2017. Discharge Summary Admission Date: Aug 14, 2017 at 19:46 Discharge Date: Aug 19, 2017 Discharge Disposition: Home with services Principal Diagnosis: Metabolic Acidosis from Hyperosmolar Hyperglycemic Non- Ketotic Syndrome Problems/Secondary Diagnoses: 1) HTN 2) HPL 3) DM II 4) Hypothyroid 5) Fatty liver Surgical 1) Required SBO surgery directly after 2) R JEN 2008, revision 2013 Procedures: ABD/PELVIS NO IV OR ORAL CONT FINDINGS: Medical Liaison topogram: Total right hip arthroplasty and right acetabular fixation. Lung bases: Minimal basilar opacities, likely atelectasis. Normal heart size. No pericardial or pleural effusion. Liver: Enlarged. Density consistent with hepatic steatosis. Biliary: No gross biliary ductal dilatation allowing for noncontrast technique. Normal gallbladder. Pancreas: Moderate parenchymal atrophy. Spleen: Normal noncontrast appearance. Adrenal glands: Normal noncontrast appearance. Kidneys and ureters: Left greater than right perinephric fat stranding. No nephrolithiasis. No hydronephrosis. Fullness of the upper pole the left kidney. At this site, there is the greatest degree of perinephric fat stranding. Right ureter takes a medial retrocaval course. Normal left ureter. Bladder: Circumferential bladder wall thickening. Pelvic organs: Prostate enlargement likely secondary to benign prostatic hyperplasia. Calcification of the vas deferentia could imply diabetes. Bowel: Mild stool burden. Fluid in the colon suggests a diarrheal state. The appendix is normal. No bowel obstruction. Peritoneal cavity: No free fluid or intraperitoneal gas. Lymph nodes: No gross lymphadenopathy allowing for noncontrast technique. Vasculature: Atherosclerosis of the normal caliber abdominal aorta. Abdominal wall: Postsurgical changes of the right upper quadrant abdominal wall with atrophy of the right rectus abdominis. Fat-containing umbilical hernia. Musculoskeletal: Degenerative changes of the spine. Total right hip arthroplasty. Screw fixation of the superior acetabulum on the right. IMPRESSION: 1. Hepatomegaly and severe hepatic steatosis. Correlate with liver function tests to exclude steatohepatitis as a cause for abdominal pain. 2. Slight asymmetric fullness and inflammatory change at the upper pole of the left kidney. This is incompletely characterized without intravenous contrast. Differential considerations include normal variant, lobar nephronia/focal chuck nephritis, or underlying neoplasm. Dedicated contrast enhanced CT imaging of the kidneys recommended, which could be obtained on an outpatient basis. 3. Circumferential bladder wall thickening could suggest chronic bladder outlet obstruction in the setting of prostatomegaly. 4. Mild stool burden with fluid in the colon possibly suggesting a diarrheal state. (RENAL)RETROPERITON COMP FINDINGS: Right kidney: Normal echogenicity of renal parenchyma. Right kidney measures 11.7 cm. No hydronephrosis. No convincing evidence of calculus or mass. Normal perfusion. Left kidney: Prominent lobular contour could indicate a juxtaparenchymal defect. No sonographic evidence of a discrete mass allowing for limited image quality. Left kidney measures 13.0 cm. No hydronephrosis. No convincing evidence of calculus or mass. Normal perfusion. Bladder: Decompressed with a Banuelos catheter. Other: Hepatic steatosis. IMPRESSION: 1. No hydronephrosis. No sonographic evidence of a renal abnormality, which does not exclude the possibility of a renal mass given limited image quality. 2. Hepatic steatosis. Consultations: 1. Intensivists 2. Pharmacy 3. Diabetes Coordinator Medication Reconciliation New Medications: Insulin Human Lispro (Humalog Kwikpen) 100 Units/Ml Inj 30 UNITS SC TIDM for 30 Days, #1 BOX 3 Refills Fluconazole (Fluconazole) 100 Mg Tab 100 MG PO QAM, #5 TAB 0 Refills Insulin Glargine (Lantus Solostar) 100 Unit/Ml Inj 65 UNITS SC BID, #1 BOX 3 Refills Continued Medications: Amlodipine (Norvasc) 5 Mg Tab 5 MG PO DAILY, TAB Aspirin (Aspirin Chewable) 81 Mg Chew 81 MG PO DAILY Levothyroxine Sodium (Synthroid) 50 Mcg Tab 50 MCG PO DAILY, TAB Lisinopril (Zestril) 40 Mg Tab 40 MG PO DAILY, TAB Metformin Hcl (Glucophage) 1,000 Mg Tab 1000 MG PO BID, TAB Simvastatin (Zocor) 20 Mg Tab 20 MG PO HS Discontinued Medications: Glimepiride (Glimepiride) 1 Mg Tab 1 TAB PO DAILY for 90 Days, #90 TAB 3 Refills Ibuprofen (Advil) 200 Mg Tab 200 MG PO UD, TAB Discharge Exam Review of Systems: Constitutional: No fever, No chills ENT: No nasal symptoms, No sore throat, No trouble swallowing Respiratory: No cough, No shortness of breath Cardiovascular: No chest pain Abdomen: No pain, No nausea, No vomiting, No diarrhea, No constipation Musculoskeletal: No swelling, No calf pain Genitourinary - Male: No dysuria Hematologic / Lymphatic: No abnormal bleeding/bruising Physical Exam: General Appearance: WD/WN, no apparent distress Eyes: sclerae normal ENT: hearing grossly normal Neck: supple, no JVD, trachea midline Respiratory/Chest: lungs clear, normal breath sounds, no respiratory distress, no accessory muscle use Cardiovascular: regular rate, rhythm, no gallop, no murmur Abdomen / GI: normal bowel sounds, non tender, soft Extremities: no pedal edema Neurologic/Psychiatric: alert, oriented x 3 Skin: normal color, warm/dry Hospital Course ADMISSION: 52 y/o M Hx DM II, HTN, HPL, hypothyroid. Pt presents following 3 days of nausea, vomiting and diarrhea. He denies abdominal pain, fevers, a productive cough or dysuria. On arrival to the ER he was notably hypotensive. Initial labs are consistent with severe dehydration, DKA, ARF and severe hyperkalemia. He does not normally take insulin. HOSPITAL COURSE: Mr. Robert was admitted for metabolic acidosis 2/2 Hyperosmolar Hyperglycemic Non-Ketotic Syndrome with T2DM. BSGs were 1300+ on admission with an A1c reading as > 16.9. He was initially admitted to the ICU with aggressive hydration and correction of electrolyte abnormalities. Metabolic acidosis and KIM resolved. Plan for diabetic control is as follows: Lantus 65 units SC BID, Humalog 30 units SC TID, and Metformin 1000 mg BID. Stopped his Glimepiride. Imaging suggests fullness in the R kidney and would recommend non-emergent CT with contrast to further assess. Also imaging shows hepatic steatosis which may improve with lifestyle adjustments but should be followed. Given his occupation may need to have a follow-up examination especially now on insulin therapy. Patient was very receptive to recommendations to prevent this from reoccurring. Patient appears a little fearful about managing this on his own. He has set some goals for weightloss and increased physical activity. He plans to remove regular soda from his diet as he reports he drank this frequently throughout the day. He will be set up with home health services and close PCP follow-up. Total Time Spent: Greater than 30 minutes This includes examination of the patient, discharge planning, medication reconciliation, and communication with other providers. Discharge Instructions Please refer to the electronic Patient Visit Report (Discharge Instructions) for additional information. Additional Copies To Adalid Altamirano M.D.; Alicia Shelton P.A.
[2017-08-20] MEDS: MAGNESIUM HYDROXIDE SUSP 30 ML UDC PO PRN (08:41)
[2017-08-20 08:53] VITALS: O2SAT 96
[2017-08-20 09:38] VITALS: Ht 172.7 cm; Wt 116.7 kg
[2017-08-20] MEDS ORDERED: POLYETHYLENE (MIRALAX) 17 GM PACK PO ONE (10:00)
[2017-08-20 10:07] VITALS: BP 128/82; PULSE 94; TEMP 37; O2SAT 96
== END 2017-08-20 11:19 | disposition home health service (06) | DRG 638 ==
LOC: EDBD 16:59 → C.EDC 17:04 → C.MSICU 19:46 → ENRESERV 20:14 → C.MS2W 08-16 11:16
PROVIDERS: ADMIT Internal Medicine; ATTEND Hospitalist
PROC: 0T9B70Z Drainage of Bladder with Drainage Device, Via Natural or Artificial Opening (ICD-10-PCS; principal; 2017-08-14)
PROC: 03HB33Z Insertion of Infusion Device into Right Radial Artery, Percutaneous Approach (ICD-10-PCS; 2017-08-15)
PROC: 05HM33Z Insertion of Infusion Device into Right Internal Jugular Vein, Percutaneous Approach (ICD-10-PCS; 2017-08-15)
DX: E11.00 Type 2 diabetes mellitus with hyperosmolarity without nonketotic hyperglycemic-hyperosmolar coma (NKHHC) (principal); E87.2 Acidosis; N17.9 Acute kidney failure, unspecified; B37.49 Other urogenital candidiasis; E87.5 Hyperkalemia; I95.9 Hypotension, unspecified; R19.7 Diarrhea, unspecified; N31.9 Neuromuscular dysfunction of bladder, unspecified; K59.00 Constipation, unspecified; I10 Essential (primary) hypertension; E78.5 Hyperlipidemia, unspecified; E03.9 Hypothyroidism, unspecified; D64.9 Anemia, unspecified; K76.0 Fatty (change of) liver, not elsewhere classified; R93.421 Abnormal radiologic findings on diagnostic imaging of right kidney; E66.9 Obesity, unspecified; Z68.37 Body mass index [BMI] 37.0-37.9, adult; Z96.641 Presence of right artificial hip joint; Z98.890 Other specified postprocedural states; Z79.1 Long term (current) use of non-steroidal anti-inflammatories (NSAID); Z79.82 Long term (current) use of aspirin; Z79.84 Long term (current) use of oral hypoglycemic drugs; Z79.899 Other long term (current) drug therapy; Z82.49 Family history of ischemic heart disease and other diseases of the circulatory system; Z80.0 Family history of malignant neoplasm of digestive organs

== ENCOUNTER → 2017-08-26 | Outpatient (CLI) | payer OTHER ==
[~2017-08-26] MED LIST changes: +AMLO-110 PO; -CIPR-255 PO; +DFL100 PO; +HMLIS SC; +INSDGIPEN SC; +METF-384 PO
[2017-08-26 14:04] LABS: BLOOD UREA NITROGEN 17 mg/dl (7-18); CALCIUM 9.1 mg/dl (8.5-10.1); CARBON DIOXIDE 25 mmol/L (21-32); CREATININE 1.09 mg/dl (0.60-1.40); GLUCOSE 78 mg/dl (70-99); POTASSIUM 4.5 mmol/L (3.5-5.1); SODIUM 136 mmol/L (136-145)
== END | disposition home or self-care (01) ==
LOC: C.LABBC 12:04
PROVIDERS: ATTEND Physician Assistant Medical
DX: E11.9 Type 2 diabetes mellitus without complications (principal); E03.9 Hypothyroidism, unspecified; E78.5 Hyperlipidemia, unspecified; D64.9 Anemia, unspecified; I10 Essential (primary) hypertension; E11.65 Type 2 diabetes mellitus with hyperglycemia

== ENCOUNTER 2021-05-21 22:38 | Inpatient (IN) ==
--- NOTE | 2021-05-22 00:29 | Emergency Department Note ---
Impression & Plan Hypoxia, COVID-19 ADMIT ED Provider Note HPI: The patient is a 55-year-old male with history of diabetes, presents the emergency department chief complaint of shortness of breath that is worsening over the past several days. Patient states that he did receive a COVID-19 test 2 days ago and he reports it was positive. Patient states he has had a worsening cough and shortness of breath over the past several days and therefore presented to the emergency department today for further evaluation. On arrival the patient is hypoxic at 88% on room air, he was therefore placed on nasal cannula oxygen with good improvement in his saturations. He tells me he did not receive his COVID-19 vaccinations. Patient denies any chest pain, he arrives with stable blood pressure, otherwise he is in no acute distress on my initial evaluation now on nasal cannula oxygen. ROS: -Pulmonary: Shortness of breath, cough, COVID-19 infection *10 point review systems was conducted and is otherwise negative unless stated above *Outpatient medications and allergy history reviewed PE: General: Alert, NAD HEENT: Normocephalic, atraumatic, trachea midline Eyes: Extraocular eye movement is intact, no scleral erythema Pulmonary: Diminished bilaterally without wheezing, no crackles Cardio: Tachycardic rate with regular rhythm GI: Abdomen is soft, nontender : No suprapubic tenderness MSK: No evidence of trauma or malformation of the extremities, no edema Skin: No evidence of rash Neuro: Alert, no focal deficits Psychiatric: Cooperative personnel monitor: - An order was placed for continuous cardiac monitoring - Patient was noted to be in sinus rhythm with rate of 110 EKG: Rate: 110 Rhythm: Sinus tachycardia Intervals: Within normal limits ST changes: No ST elevation Time: 0028 Medical Decision Making: Patient presented to the emergency department with increasing shortness of breath, recently diagnosed with COVID-19 on outpatient testing. On arrival here to the ED he is hypoxic, placed on nasal cannula oxygen with good improvement, on my initial evaluation he has some mild increased work of breathing but otherwise is in no acute distress now on nasal cannula oxygen. He denies any chest pain. COVID-19 testing was performed here in the ED and is positive, chest x-ray per my interpretation shows a pattern of viral pneumonia, BNP is low, patient does not appear fluid overloaded, he was given IV fluids in the ED. Lab work also shows evidence of hyperglycemia with blood sugar of 408, no anion gap elevation, patient was given IV fluids and a dose of IV insulin here in the ED for his hyperglycemia. He will also be given a dose of Decadron for his hypoxia with COVID-19 pneumonia. Given the patient's increased oxygen requirement he will be admitted to the hospitalist service for further care. Patient was admitted in stable condition. * Diagnosis: Hypoxia secondary to COVID-19 pneumonia, hyperglycemia without DKA * Disposition: Admission * CRITICAL CARE TIME: 40 min -Stabilization of hypoxia with oxygen saturations less than 90% on room air requiring supplemental oxygen, interpretation of diagnostic studies, time spent at the bedside, arrangement of admission Brett Harding DO Emergency Medicine Past Med/Surg History Medical History (Updated 05/22/21 @ 02:00 by Brett Harding DO) Abnormal finding on imaging KIM (acute kidney injury) Anemia BPH (benign prostatic hyperplasia) Diabetes mellitus DKA (diabetic ketoacidoses) Dyslipidemia Hyperkalemia Hypertension Hypothyroidism Incisional hernia Neurogenic bladder Obesity Spigelian hernia Tubular adenoma of colon Umbilical hernia Urinary hesitancy Surgical History History of appendectomy as an infant Hx of total hip arthroplasty right. 06/2007 S/P inguinal ligation of varicocele b/l. 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 How many Children do You have: 1 Feels Safe at Home: Yes Childhood Exposure to Second-Hand Smoke: No caffeine: No Dental Care, Regularly: Yes Physical Activity Frequency: Does not Exercise Seatbelt Use: never Sunscreen Use: No Allergies Allergies Allergy/AdvReac Type Severity Reaction Status Date / Time No Known Allergies Allergy Verified 05/22/21 00:50 Home Meds Home Medications Medication Instructions Recorded Confirmed lancets (OneTouch UltraSoft #50 ea 12/30/18 12/29/20 Lancets) Previous Rx's Medication Instructions Recorded metformin 1,000 mg tablet 1,000 mg PO BID #180 tab 06/01/20 simvastatin 20 mg tablet 20 mg PO DAILY #90 tab 06/01/20 pen needle, diabetic 31 gauge x #100 ea 10/16/2008/29" (UltiCare Pen Needle) levothyroxine 75 mcg tablet 75 mcg PO DAILY #90 tab 12/21/20 lisinopril 40 mg tablet 20 mg PO DAILY #90 tab 12/29/20 blood sugar diagnostic (OneTouch #100 ea 01/15/21 Verio test strips) insulin glargine 100 unit/mL (3 5 unit SUBCUT QPM #15 ml 03/05/21 mL) subcutaneous pen (Lantus Solostar U-100 Insulin) dulaglutide 3 mg/0.5 mL 3 mg SUBCUT WK #2 ml 05/01/21 subcutaneous pen injector benzonatate 200 mg capsule 200 mg PO TID PRN #30 cap 05/21/21 Results & Data (ED) Vital Signs Vital Signs - 24 hr 05/21/21 22:50 05/22/21 00:41 05/22/21 00:42 Temperature 37.0 C Temperature Source Temporal Artery Scan Pulse Rate 129 H Pulse Rate [Apical] 112 H Respiratory Rate 18 26 H Blood Pressure 115/76 Blood Pressure [Right Arm] 113/77 Blood Pressure Mean 89 Blood Pressure Mean [Right Arm] 89 Blood Pressure Position Sitting Pulse Oximetry 88 L 95 94 Oxygen Delivery Method Room Air Nasal Cannula Nasal Cannula Oxygen Flow Rate 2 2 Sepsis Recent Fever Within 48 Hours No Sepsis New/Unexplained Change in Mental Status No Sepsis Action Taken by Nursing No Action Required Laboratory Data Result diagrams: 05/22/21 00:30 05/22/21 00:30 Lab Results 05/22/21 05/22/21 05/22/21 Range/Units 00:30 00:30 00:30 WBC 7.49 (4.8-10.8) K/uL RBC 4.35 L (4.7-6.1) M/uL Hgb 12.2 L (14.0-18.0) g/dL Hct 37.8 L (42-52) % MCV 86.9 (80-100) fL MCH 28.0 (25-34) pg MCHC 32.3 (32-36) g/dL RDW Std Deviation 49.6 H (36.4-46.3) fL RDW Coeff of Fernie 15.4 H (11.5-14.5) % Plt Count 213 (130-400) K/uL MPV 9.9 (7.4-10.4) fL Immature Gran % (Auto) 0.8 % Neut % (Auto) 87.0 % Lymph % (Auto) 8.3 % [place] % (Auto) 3.9 % Eos % (Auto) 0.0 % Baso % (Auto) 0.0 % Neut # (Auto) 6.52 H (1.4-6.5) K/uL Lymph # (Auto) 0.62 L (1.2-3.4) K/uL [place] # (Auto) 0.29 (0.11-0.59) K/uL Eos # (Auto) 0.00 (0-0.5) K/uL Baso # (Auto) 0.00 (0-0.2) K/uL Immature Gran # (Auto) 0.06 H (0.00-0.02) K/uL PT Cancelled INR Cancelled APTT Cancelled PTT Ratio Cancelled Sodium 137 (136-145) mmol/L Potassium 4.8 (3.5-5.1) mmol/L Chloride 110 H (98-107) mmol/L Carbon Dioxide 19 L (21-32) mmol/L Anion Gap 8.0 (3-11) BUN 40 H (7-18) mg/dl Creatinine 1.43 H (0.6-1.4) mg/dl Est Cr Clr Drug Dosing 68.5 ml/min Est GFR ( Amer) 62.6 ml/min Est GFR (Non-Af Amer) 54.0 ml/min BUN/Creatinine Ratio 28.1 H (10-20) Glucose 408 H* (70-99) mg/dl Calcium 7.8 L (8.5-10.1) mg/dl Total Bilirubin 0.3 (0.2-1) mg/dl AST 51 H (15-37) U/L ALT 43 (12-78) Alkaline Phosphatase 68 (45-117) U/L Troponin I < 0.015 (0-0.045) ng/ml NT-Pro-B Natriuret Pep 48 (0-900) pg/ml Total Protein 6.8 (6.4-8.2) gm/dl Albumin 2.7 L (3.4-5.0) gm/dl Globulin 4.1 H (2.5-4.0) gm/dl Albumin/Globulin Ratio 0.7 L (0.9-2) Beta-Hydroxybutyric Acd (0.2-2.81) mg/dl Specimen Hemolysis Administered Medications Sodium Chloride (Nss 1000ml) 1,000 mls @ 999 mls/hr IV .Q1H1M ONE Stop: 05/22/21 02:26 Last Admin: 05/22/21 01:40 Dose: 999 mls/hr Documented by: [id number] Discontinued Medications Dexamethasone Sodium Phosphate (DexamethasonePf 10 Mg/Ml Vial) 10 mg IV NOW ONE Stop: 05/22/21 01:30 Last Admin: 05/22/21 01:52 Dose: 10 mg Documented by: [id number] Insulin Human Regular (Novolin-R Insulin Per Unit Charge) 5 units IV NOW STA Stop: 05/22/21 01:27 Last Admin: 05/22/21 01:50 Dose: 5 units Documented by: [id number] Cosigned by: [id number] Discharge Plan Visit Data Chief Complaint: Illness ED Provider: Brett Harding Discharge Problem: Hypoxia, COVID-19 Forms Stand Alone Forms: [facility] Prescriptions Prescriptions: No Action simvastatin 20 mg tablet 20 mg PO DAILY Qty: 90 RF: 3 metformin 1,000 mg tablet 1,000 mg PO BID Qty: 180 RF: 3 (DME) pen needle, diabetic [UltiCare Pen Needle] 31 gauge x 3/16" needle See Dose Instructions .ROUTE .MEDSUPPLY Qty: 100 RF: 3 levothyroxine 75 mcg tablet 75 mcg PO DAILY Qty: 90 RF: 1 (DME) OneTouch Verio test strips Strip See Dose Instructions .ROUTE .MEDSUPPLY Qty: 100 RF: 3 Lantus Solostar U-100 Insulin 100 unit/mL (3 mL) insulin pen 5 unit subcut QPM Qty: 15 RF: 2 dulaglutide 3 mg/0.5 mL pen injector 3 mg subcut WK Qty: 2 RF: 3 lisinopril 40 mg tablet 20 mg PO DAILY Qty: 90 RF: 3 benzonatate 200 mg capsule 200 mg PO TID PRN (Reason: cough) Qty: 30 RF: 0 (DME) lancets [OneTouch UltraSoft Lancets] misc See Dose Instructions .ROUTE .MEDSUPPLY Qty: 50 RF: 0 Referrals Referrals: Jasmeet Burns DO [Physician] -
[2021-05-22 00:44] LABS: Hematocrit (blood only) 37.8 % (42-52); Hemoglobin 12.2 g/dL (14.0-18.0); Immature Granulocytes # (auto) 0.06 K/uL (0.00-0.02); Immature Granulocytes % (auto) 0.8 %; Lymphocytes # (auto) 0.62 K/uL (1.2-3.4); Lymphocytes % (auto) 8.3 %; Mean Corpuscular Hgb Conc 32.3 g/dL (32-36); Mean Corpuscular Volume 86.9 fL (80-100); Mean Platelet Volume 9.9 fL (7.4-10.4); Monocytes # (auto) 0.29 K/uL (0.11-0.59); Monocytes % (auto) 3.9 %; Neutrophils # (auto) 6.52 K/uL (1.4-6.5); Platelet Count 213 K/uL (130-400); RDW Coefficient of Variation 15.4 % (11.5-14.5); RDW Standard Deviation 49.6 fL (36.4-46.3); Red Blood Count 4.35 M/uL (4.7-6.1); White Blood Count 7.49 K/uL (4.8-10.8)
[2021-05-22 01:22] LABS: Alanine Aminotransferase 43 (12-78); Albumin Globulin Ratio 0.7 (0.9-2); Albumin Level 2.7 gm/dl (3.4-5.0); Alkaline Phosphatase 68 U/L (45-117); Aspartate Aminotransferase 51 U/L (15-37); BUN Creatinine Ratio 28.1 (10-20); Bilirubin,Total 0.3 mg/dl (0.2-1); Blood Urea Nitrogen 40 mg/dl (7-18); Calcium 7.8 mg/dl (8.5-10.1); Carbon Dioxide 19 mmol/L (21-32); Chloride 110 mmol/L (98-107); Creatinine Clr Calc Pharmacy 68.5 ml/min; Est GFR (African American) 62.6 ml/min; Globulin 4.1 gm/dl (2.5-4.0); Glucose 408 mg/dl (70-99); NT Pro B Type Natriuretic Pept 48 pg/ml (0-900); Potassium 4.8 mmol/L (3.5-5.1); Sodium 137 mmol/L (136-145); Total Protein 6.8 gm/dl (6.4-8.2); Troponin I < 0.015 ng/ml (0-0.045)
[2021-05-22] MEDS ORDERED: NovoLIN-R INSULIN PER UNIT CHARGE IV STA ×2 (01:26→02:39)
[2021-05-22] MEDS ORDERED: SODIUM CHLORIDE 0.9% 1000ML 1,000 ML IV ONE (01:26)
[2021-05-22] MEDS ORDERED: dexAMETHasone**PF** 10 MG/ML VIAL IV ONE (01:29)
[2021-05-22 01:33] LABS: Influenza A virus by PCR Negative (Neg); Influenza B virus by PCR Negative (Neg); RSV by PCR Negative (Neg)
[2021-05-22 02:03] LABS: Base Excess VBG -4.4 mEq/L; Oxygen Saturation VBG 86.8 %; pH VBG 7.4 (7.36-7.41)
[2021-05-22 02:03] LABS: SARS CoV2 RNA(COVID-19) InHosp POSITIVE (Negative)
[2021-05-22] MEDS ORDERED: REMDESIVIR 200 MG in SODIUM CHLORIDE 0.9% 210 ML IV STA (02:49)
--- NOTE | 2021-05-22 02:50 | History & Physical Report ---
Date of Service May 22, 2021 Assessment & Plan (1) Pneumonia due to COVID-19 virus: Plan: COVID-19 pneumonia with hypoxia- Status post dexamethasone 10 mg IV from the ED Dexamethasone 6 mg IV every morning, follow blood sugars very closely Remdesivir IV per protocol Duonebs every 4 hours while awake and every 2 hours when necessary. Azithromycin 500 mg IV daily Lovenox 55 mg subcu daily Guaifenesin extended release 12 mg p.o. twice daily Vitamin D 1000 international units p.o. every morning Zinc sulfate 220 mg p.o. every morning (2) Hypoxia: Plan: Nasal cannula oxygen, titrate to keep pulse ox 94-95% (3) Neurogenic bladder: Plan: Patient will continue to self straight cath as per outpatient (4) Hypothyroidism: Plan: Continue levothyroxine 75 mcg daily (5) Hypertension: Plan: Hold lisinopril (6) Dyslipidemia: Plan: Continue simvastatin 20 mg daily (7) Diabetes mellitus: Plan: Hold Metformin Glucose was 408 upon admission, and improved to 376 after getting 5 units of regular insulin IV from the ED We will give an additional 5 units regular insulin IV now. Continue to insulin glargine 5 units subcu every evening Add insulin glargine 10 units subcu every morning to help cover increased sugars likely from IV dexamethasone Place on Accu-Cheks before meals and at bedtime with NovoLog coverage per scale Check hemoglobin A1c (8) BPH (benign prostatic hyperplasia): Plan: Straight cathing as noted above History of Present Illness Chief Complaint: The patient presents to the emergency department with complaint of shortness of breath, dyspnea on exertion, decreased taste and smell, and cough that began 3 days ago. Primary Care Provider: Alicia Shelton PA-C The patient is a 55-year-old male with a past medical history including neurogenic bladder requiring self catheterization, obesity, spigelian hernia, umbilical hernia, hypothyroidism, hypertension, dyslipidemia, diabetes mellitus, BPH with LUTS, hepatic steatosis, and left kidney lesion. Patient presents with 3 days of symptoms as noted above. His blood sugars are typically in 1. 170 range, however, since developing illness, his sugars have been in the 250 range. Abnormal laboratories: Hemoglobin 12.2, hematocrit 37.8, glucose 408, BUN 40, creatinine 1.43, albumin 2.7. Patient was COVID-19 positive. Patient is influenza and RSV negative. Pulse ox on room air is 88% chest x-ray Shows multifocal pneumonia Treatment from the emergency department: NSS 1 L, regular insulin 5 units IV, and dexamethasone 10 mg IV Allergies Allergy/AdvReac Type Severity Reaction Status Date / Time No Known Allergies Allergy Verified 05/22/21 00:50 Home Medications Medication Instructions Recorded Confirmed Type lancets (OneTouch UltraSoft #50 ea 12/30/18 12/29/20 History Lancets) metformin 1,000 mg tablet 1,000 mg PO BID #180 tab 06/01/20 05/22/21 Rx simvastatin 20 mg tablet 20 mg PO DAILY #90 tab 06/01/20 05/22/21 Rx pen needle, diabetic 31 gauge x #100 ea 10/16/20 12/29/20 Rx 3/16" (UltiCare Pen Needle) levothyroxine 75 mcg tablet 75 mcg PO DAILY #90 tab 12/21/20 05/22/21 Rx lisinopril 40 mg tablet 20 mg PO DAILY #90 tab 12/29/20 05/22/21 Rx blood sugar diagnostic (OneTouch #100 ea 01/15/21 Rx Verio test strips) insulin glargine 100 unit/mL (3 5 unit SUBCUT QPM #15 ml 03/05/21 05/22/21 Rx mL) subcutaneous pen (Lantus Solostar U-100 Insulin) dulaglutide 3 mg/0.5 mL 3 mg SUBCUT WK #2 ml 05/01/21 05/22/21 Rx subcutaneous pen injector benzonatate 200 mg capsule 200 mg PO TID PRN #30 cap 05/21/21 05/22/21 Rx Past Med/Surg History Medical History (Updated 05/22/21 @ 03:12 by Morgan Sanches MD) Abnormal finding on imaging KIM (acute kidney injury) Anemia BPH (benign prostatic hyperplasia) Diabetes mellitus DKA (diabetic ketoacidoses) Dyslipidemia Hyperkalemia Hypertension Hypothyroidism Incisional hernia Neurogenic bladder Obesity Spigelian hernia Tubular adenoma of colon Umbilical hernia Urinary hesitancy Surgical History History of appendectomy as an infant Hx of total hip arthroplasty right. 06/2007 S/P inguinal ligation of varicocele b/l. 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 How many Children do You have: 1 Feels Safe at Home: Yes Childhood Exposure to Second-Hand Smoke: No caffeine: No Dental Care, Regularly: Yes Physical Activity Frequency: Does not Exercise Seatbelt Use: never Sunscreen Use: No Review of Systems Review of Systems: The patient denies chest pain, palpitations, lower extremity swelling, sore throat, fevers, chills, sweats, nausea, vomiting, di arrhea , constipation, abdominal pain, pelvic pain, blood in urine or stool, dysuria, urinary frequency or urgency, lightheadedness, dizziness, headache, memory loss, loss of consciousness, rash, abnormal bruising or bleeding, imbalance, focal weakness, numbness or tingling in arms or legs, generalized arthralgias or myalgias, back or neck pain, or night sweats. The review of systems is otherwise negative other than for that already noted above, and at least 10 systems have been reviewed. Physical Exam Physical Exam: The patient is awake, alert and oriented 3, well developed and well nourished, normocephalic and atraumatic, lying in bed and in no acute distress. HEENT--PERRL, EOMI, mucous membranes and oropharynx normal. Neck--supple. No JVD. No bruits. Thyroid normal, trachea midline, no adenopathy. Heart--normal S1 and S2. No murmurs, rubs or gallops. Lungs--coarse breath sounds bilaterally. no respiratory distress, no accessory muscle use. Abdomen--normal bowel sounds and soft. Nontender. Nondistended. Obese Extremities--no cyanosis or clubbing. No edema. Dermatologic--normal skin turgor, normal color, no abnormal lymph nodes, no rash. Neurologic--cranial nerves II through XII grossly intact. Rheumatologic--normal range of motion. Psychiatric--normal affect. Results & Data Results & Data ([facility]) Vital Signs (Past 12 Hours) Vital Signs Temp Pulse Pulse Resp BP BP Pulse Ox 05/22/21 02:09 93 05/22/21 00:42 94 05/22/21 00:41 112 H 26 H 113/77 95 05/21/21 22:50 37.0 C 129 H 18 115/76 88 L Laboratory Results Laboratory Results WBC 7.49 K/uL (4.8-10.8) 05/22/21 00:30 RBC 4.35 M/uL (4.7-6.1) L 05/22/21 00:30 Hgb 12.2 g/dL (14.0-18.0) L 05/22/21 00:30 Hct 37.8 % (42-52) L 05/22/21 00:30 MCV 86.9 fL (80-100) 05/22/21 00:30 MCH 28.0 pg (25-34) 05/22/21 00:30 MCHC 32.3 g/dL (32-36) 05/22/21 00:30 RDW Std Deviation 49.6 fL (36.4-46.3) H 05/22/21 00:30 RDW Coeff of Fernie 15.4 % (11.5-14.5) H 05/22/21 00:30 Plt Count 213 K/uL (130-400) 05/22/21 00:30 MPV 9.9 fL (7.4-10.4) 05/22/21 00:30 Immature Gran % (Auto) 0.8 % 05/22/21 00:30 Neut % (Auto) 87.0 % 05/22/21 00:30 Lymph % (Auto) 8.3 % 05/22/21 00:30 [place] % (Auto) 3.9 % 05/22/21 00:30 Eos % (Auto) 0.0 % 05/22/21 00:30 Baso % (Auto) 0.0 % 05/22/21 00:30 Neut # (Auto) 6.52 K/uL (1.4-6.5) H 05/22/21 00:30 Lymph # (Auto) 0.62 K/uL (1.2-3.4) L 05/22/21 00:30 [place] # (Auto) 0.29 K/uL (0.11-0.59) 05/22/21 00:30 Eos # (Auto) 0.00 K/uL (0-0.5) 05/22/21 00:30 Baso # (Auto) 0.00 K/uL (0-0.2) 05/22/21 00:30 Immature Gran # (Auto) 0.06 K/uL (0.00-0.02) H 05/22/21 00:30 PT Cancelled 05/22/21 00:30 INR Cancelled 05/22/21 00:30 APTT Cancelled 05/22/21 00:30 PTT Ratio Cancelled 05/22/21 00:30 VBG pH 7.40 (7.36-7.41) 05/22/21 01:50 VBG pCO2 32 mmHg (38-50) L 05/22/21 01:50 VBG pO2 55 mmHg 05/22/21 01:50 VBG HCO3 19 mmol/L 05/22/21 01:50 VBG O2 Saturation 86.8 % 05/22/21 01:50 VBG Base Excess -4.4 mEq/L 05/22/21 01:50 Barometric Pressure 732.8 mm/Hg 05/22/21 01:50 Sodium 137 mmol/L (136-145) 05/22/21 00:30 Potassium 4.8 mmol/L (3.5-5.1) 05/22/21 00:30 Chloride 110 mmol/L (98-107) H 05/22/21 00:30 Carbon Dioxide 19 mmol/L (21-32) L 05/22/21 00:30 Anion Gap 8.0 (3-11) 05/22/21 00:30 BUN 40 mg/dl (7-18) H 05/22/21 00:30 Creatinine 1.43 mg/dl (0.6-1.4) H 05/22/21 00:30 Est Cr Clr Drug Dosing 68.5 ml/min 05/22/21 00:30 Est GFR ( Amer) 62.6 ml/min 05/22/21 00:30 Est GFR (Non-Af Amer) 54.0 ml/min 05/22/21 00:30 BUN/Creatinine Ratio 28.1 (10-20) H 05/22/21 00:30 Glucose 408 mg/dl (70-99) H* 05/22/21 00:30 POC Glucose 373 mg/dl (70-99) H* 05/22/21 02:31 Calcium 7.8 mg/dl (8.5-10.1) L 05/22/21 00:30 Total Bilirubin 0.3 mg/dl (0.2-1) 05/22/21 00:30 AST 51 U/L (15-37) H 05/22/21 00:30 ALT 43 (12-78) 05/22/21 00:30 Alkaline Phosphatase 68 U/L (45-117) 05/22/21 00:30 Troponin I < 0.015 ng/ml (0-0.045) 05/22/21 00:30 NT-Pro-B Natriuret Pep 48 pg/ml (0-900) 05/22/21 00:30 Total Protein 6.8 gm/dl (6.4-8.2) 05/22/21 00:30 Albumin 2.7 gm/dl (3.4-5.0) L 05/22/21 00:30 Globulin 4.1 gm/dl (2.5-4.0) H 05/22/21 00:30 Albumin/Globulin Ratio 0.7 (0.9-2) L 05/22/21 00:30 Beta-Hydroxybutyric Acd mg/dl (0.2-2.81) 05/22/21 00:30 Specimen Hemolysis 05/22/21 00:30 SARS-CoV-2 (PCR) POSITIVE (Negative) A* 05/22/21 00:48 Influenza Type A (PCR) Negative (Neg) 05/22/21 00:48 Influenza Type B (PCR) Negative (Neg) 05/22/21 00:48 RSV (RT-PCR) Negative (Neg) 05/22/21 00:48 Code Status & VTE Plan Code Status Full code VTE Prophylaxis Plan VTE Prophylaxis will be ordered: Yes PG Care Time/CCT Total # of Minutes Spent Total Time Spent with Patient: Total time spent is greater than 50% in coordination of care (as documented) at patient's floor/unit and/or counseling patient: Coding Level of Care Code 09601 Initial Inpt Care Lvl 3 Diagnoses Pneumonia due to COVID-19 virus U07.1; J12.82 Hypoxia R09.02 Neurogenic bladder N31.9 Hypothyroidism E03.9 Hypertension I10 Dyslipidemia E78.5 Diabetes mellitus E11.9 BPH (benign prostatic hyperplasia) N40.0
[2021-05-22] MEDS ORDERED: INSULIN ASPART 100 UNITS/ML VIAL SC SCH (04:00)
[2021-05-22] MEDS ORDERED: ONDANSETRON INJ 2 MG/ML 2 ML VIAL IV PRN (04:51)
[2021-05-22] MEDS ORDERED: GLUCOSE 40% GEL 15 GM TUBE PO PRN (04:51)
[2021-05-22] MEDS ORDERED: CARBOHYDRATES FOR HYPOGLYCEMIA PO PRN (04:51)
[2021-05-22] MEDS ORDERED: GLUCAGON FOR INJ 1 MG VIAL SQ PRN (04:51)
[2021-05-22] MEDS ORDERED: SODIUM CHLORIDE 0.9% 1000ML 1,000 ML IV SCH (04:51)
[2021-05-22] MEDS ORDERED: DEXTROSE 50% 50 ML SYRINGE IV PRN (04:51)
[2021-05-22] MEDS ORDERED: GLUCOSE 10 TABS/TUBE PO PRN (04:51)
[2021-05-22] MEDS ORDERED: SODIUM CHLORIDE 0.9% 10ML FLUSH IV SCH (05:15)
[2021-05-22] MEDS: LEVOTHYROXINE SODIUM 75 MCG TABLET PO SCH (06:04)
[2021-05-22] MEDS ORDERED: ALBUT/IPRATROP 3MG/0.5MG NEB 3 ML VIAL NEB SCH (07:00)
--- NOTE | 2021-05-22 07:34 | XRay Report ---
XR chest 1V portable CLINICAL HISTORY: Dyspnea TECHNIQUE: Single frontal radiograph of the chest was obtained. Comparison: Comparison is made to chest one view 08/15/2017 FINDINGS: No lines and tubes are seen. The cardiomediastinal silhouette is normal. Lungs are underinflated. Sca ttered airspace opacities are seen. No evidence of pleural effusion or pneumothorax. IMPRESSION: Underinflated lungs with diffuse airspace opacities which may represent atelectasis, pneumonia, and/o r aspiration. ACT 112: Negative or not required by law. Electronically signed by: Raudel Kyle M.D. 05/22/2021 7:32 AM
[2021-05-22] MEDS: ENOXAPARIN INJ 60 MG/0.6 ML SYR SQ SCH (08:13)
[2021-05-22] MEDS: INSULIN ASPART 100 UNITS/ML VIAL SC SCH ×5 (08:14→22:25)
[2021-05-22] MEDS: dexAMETHasone 6 MG in SYRINGE 0 ML IV SCH (08:30)
[2021-05-22] MEDS: AZITHROMYCIN 500 MG in DEXTROSE 5% 250 ML IV SCH (08:30)
[2021-05-22] MEDS: CHOLECALCIFEROL 1,000 UNITS 25 MCG TAB PO SCH (08:30)
[2021-05-22] MEDS: SIMVASTATIN 20 MG TAB PO SCH (08:32)
[2021-05-22] MEDS: guaiFENesin 600 MG TABCR PO SCH ×2 (08:32→22:36)
[2021-05-22] MEDS: ZINC SULFATE 220 MG CAPSULE PO SCH (08:33)
[2021-05-22] MEDS ORDERED: INSULIN GLARGINE SOLOSTAR 100 UNITS/ML 3 ML PEN SC SCH (09:00)
[2021-05-22] MEDS ORDERED: LANTUS PER UNIT CHARGE SQ SCH (09:00)
[2021-05-22] MEDS ORDERED: ALBUT/IPRATROP 3MG/0.5MG NEB 3 ML VIAL NEB PRN (09:26)
--- NOTE | 2021-05-22 10:30 | Electrocardiogram Report ---
Test Reason : Blood Pressure : / mmHG Vent. Rate : 110 BPM Atrial Rate : 110 BPM P-R Int : 140 ms QRS Dur : 086 ms QT Int : 342 ms P-R-T Axes : 049 010 035 degrees QTc Int : 462 ms Sinus tachycardia Otherwise normal ECG When compared with ECG of 15-AUG-2017 07:58, No significant change was found Confirmed by Faraz Mary ([id number]) on 05/22/2021 10:30:10 AM Referred By: Brett Harding Confirmed By:Faraz Mary
[2021-05-22] MEDS ORDERED: INSULIN HUMAN REGULAR PER UNIT 10 UNITS in SYRINGE 0 ML IV STA (11:31)
[2021-05-22] MEDS ORDERED: NovoLIN-R INSULIN PER UNIT CHARGE ONE ×2 (12:20→14:49)
[2021-05-22] MEDS ORDERED: INSULIN GLARGINE SOLOSTAR 100 UNITS/ML 3 ML PEN SC STA (14:22)
[2021-05-22] MEDS ORDERED: INSULIN HUMAN REGULAR PER UNIT 10 UNITS in SYRINGE 9.9 ML IV STA (14:22)
--- NOTE | 2021-05-22 17:05 | History & Physical Bridge Note ---
Date of Service May 22, 2021 History & Physical Bridge Note I have examined the patient, reviewed the History & Physical and in the interval since the performance of the History & Physical I have noted the following changes of clinical significance: patient doing okay, he is on 7L, he is tachypneic but not in distress eating and drinking a little better sugars have been problematic, up to > 400 I gave him regular insulin 10 units and tightened correction factor to 20 sugar was 408 2 hours later gave another regular insulin 10 units, give Lantus 20 units now for tomorrow, give Lantus 20 units BID, NPH 40 units, Novolog
[2021-05-22] MEDS: REMDESIVIR 100 MG in SODIUM CHLORIDE 0.9% 230 ML IV SCH (21:00)
[2021-05-22] MEDS ORDERED: INSULIN GLARGINE SOLOSTAR 100 UNITS/ML 3 ML PEN SQ SCH ×2 (21:00)
[2021-05-22] MEDS: SODIUM CHLORIDE 0.9% 10ML FLUSH IV SCH (22:37)
[2021-05-23 05:00] LABS: Hematocrit (blood only) 37.4 % (42-52); Hemoglobin 12.2 g/dL (14.0-18.0); Mean Corpuscular Hemoglobin 28.4 pg (25-34); Mean Corpuscular Hgb Conc 32.6 g/dL (32-36); Mean Platelet Volume 9.7 fL (7.4-10.4); Platelet Count 250 K/uL (130-400); RDW Coefficient of Variation 15.6 % (11.5-14.5); RDW Standard Deviation 49.8 fL (36.4-46.3); White Blood Count 8.75 K/uL (4.8-10.8)
[2021-05-23 05:34] LABS: Albumin Level 2.4 gm/dl (3.4-5.0); BUN Creatinine Ratio 35.1 (10-20); Calcium 8.2 mg/dl (8.5-10.1); Est GFR (African American) 82.3 ml/min; Potassium 4.6 mmol/L (3.5-5.1)
[2021-05-23 05:37] LABS: Albumin Globulin Ratio 0.5 (0.9-2); Bilirubin,Total 0.3 mg/dl (0.2-1); Globulin 4.7 gm/dl (2.5-4.0); Total Protein 7.1 gm/dl (6.4-8.2)
[2021-05-23 06:02] LABS: Basophils # (auto) 0.01 K/uL (0-0.2); Basophils % (auto) 0.1 %; Immature Granulocytes # (auto) 0.11 K/uL (0.00-0.02); Immature Granulocytes % (auto) 1.3 %; Lymphocytes # (auto) 0.62 K/uL (1.2-3.4); Lymphocytes % (auto) 7.1 %; Monocytes # (auto) 0.43 K/uL (0.11-0.59); Monocytes % (auto) 4.9 %; Neutrophils # (auto) 7.58 K/uL (1.4-6.5); Neutrophils % (auto) 86.6 %; RBC Morphology Unremarkable
[2021-05-23] MEDS: LEVOTHYROXINE SODIUM 75 MCG TABLET PO SCH (06:39)
[2021-05-23 07:28] LABS: Estimated Average Glucose 212 mg/dl
[2021-05-23] MEDS: INSULIN ASPART 100 UNITS/ML VIAL SC SCH ×4 (08:29→22:56)
[2021-05-23] MEDS ORDERED: DEXAMETHASONE SOD INJ 4 MG/ML VIAL ONE (08:48)
[2021-05-23] MEDS ORDERED: INSULIN HUMAN NPH SC SCH (09:00)
[2021-05-23] MEDS ORDERED: INSULIN GLARGINE SOLOSTAR 100 UNITS/ML 3 ML PEN SC SCH ×2 (09:00)
[2021-05-23] MEDS: AZITHROMYCIN 500 MG in DEXTROSE 5% 250 ML IV SCH (09:06)
[2021-05-23] MEDS: guaiFENesin 600 MG TABCR PO SCH ×2 (09:06→22:53)
[2021-05-23] MEDS: CHOLECALCIFEROL 1,000 UNITS 25 MCG TAB PO SCH (09:07)
[2021-05-23] MEDS: ZINC SULFATE 220 MG CAPSULE PO SCH (09:07)
[2021-05-23] MEDS: SIMVASTATIN 20 MG TAB PO SCH (09:07)
[2021-05-23] MEDS: dexAMETHasone 6 MG in SYRINGE 0 ML IV SCH (09:08)
[2021-05-23] MEDS: ENOXAPARIN INJ 60 MG/0.6 ML SYR SQ SCH (09:09)
[2021-05-23] MEDS ORDERED: INSULIN HUMAN REGULAR PER UNIT 5 UNITS in SYRINGE 4.95 ML IV STA (12:05)
--- NOTE | 2021-05-23 12:35 | Hospitalist Progress Note ---
Date of Service May 23, 2021 Assessment & Plan (1) Pneumonia due to COVID-19 virus: Plan: COVID-19 pneumonia with hypoxia dexamethasone 6mg IV daily Remdesivir IV daily x 5 days, symptoms started 3 days prior to admission so he should benefit from Remdesivir Zithromax 500mg daily x 5 days Lovenox for DVT prophylaxis incentive spirometer eating and drinking better, Cr is 1.1 give Lasix 20mg IV x 1 to keep lungs dry (2) Hypoxia: Plan: acute hypoxic respiratory failure down to 7L mask, can likely come down further, RN will titrate give Lasix today to keep lungs dry encourage prone or side sleeping if possible (3) Diabetes mellitus: Plan: HbA1c 9.0% very high glucose, > 400 yesterday added Lantus, NPH, tightened Novolog and gave regular insulin on 05/22 today, sugars are still in 300s spoke with pharmacy increase Lantus to 25 BID, increase NPH to 50, novolog CF 20 with carb ratio 6 gave regular insulin 5 units prior to lunch (4) KIM (acute kidney injury): Plan: Cr down to 1.1 from 1.4 will utilize Lasix now, drinking well enough (5) Neurogenic bladder: Plan: goodman catheter while here, monitor UO typically straight caths (6) Hypothyroidism: Plan: Continue levothyroxine 75 mcg daily (7) Hypertension: Plan: Hold lisinopril (8) Dyslipidemia: Plan: Continue simvastatin 20 mg daily (9) BPH (benign prostatic hyperplasia): Plan: Straight cathing as noted above Admission and Anticipated Discharge Date Admission Date: May 22, 2021 Subjective patient feeling a lot better today, sitting up in recliner he is 97% on 8L mask, turned him down to 7L eating and drinking well, Cr down to 1.1 sugars still elevated, spoke with pharmacy, will adjust carb ratio to 6 gave him regular insulin, increase Lantus and NPH in the morning his HbA1c was 9.0 this morning updated RN on plan, will give him Lasix 20mg IV now, try to dry out lungs Review of Systems Review of Systems: All systems reviewed & are unremarkable except as noted in Subjective Constitutional: + fatigue and + weakness; no fever Respiratory: + cough, + dyspnea and + dyspnea on exertion Gastrointestinal: no abdominal pain, no nausea, no vomiting, no constipation and no diarrhea/loose stools Physical Exam 2 Physical Exam: General: well developed, obese male, no acute distress, comfortable Neck: supple, trachea midline, normal thyroid Lungs: clear to auscultation bilaterally, tachypnea, slight accessory muscle use Heart: tachycardic S1 and S2, no murmur, peripheral pulses normal, capillary refill normal, no edema Abdomen: soft, NT, ND, + BS, no hepatomegaly, normal to percussion Extremities: normal in appearance, no cyanosis, no petechiae, strength is 5/5 bilaterally Neuro: awake, cooperative, moves all extremities, no focal motor deficits, CN II-XII intact, sensation in extremities intact, normal speech Skin: warm, dry, no rash, normal turgor Psych: Awake, alert oriented x 3, euthymic affect Results & Data Results & Data ([facility]) Vital Signs (Past 12 Hours) Vital Signs Temp Pulse Pulse Resp BP Pulse Ox Pulse Ox 05/23/21 12:02 36.6 C 103 H 27 H 147/99 H 90 05/23/21 07:53 37.0 C 96 H 23 151/108 H 94 05/23/21 05:00 92 05/23/21 04:25 36.3 C L 87 22 136/92 95 05/23/21 00:58 37 C 95 H 22 129/90 93 Laboratory Results Laboratory Results - last 24 hr 05/22/21 05/22/21 05/22/21 13:32 18:03 21:58 WBC RBC Hgb Hct MCV MCH MCHC RDW Std Deviation RDW Coeff of Fernie Plt Count MPV Immature Gran % (Auto) Neut % (Auto) Lymph % (Auto) [place] % (Auto) Eos % (Auto) Baso % (Auto) Neut # (Auto) Lymph # (Auto) [place] # (Auto) Eos # (Auto) Baso # (Auto) Immature Gran # (Auto) RBC Morphology Sodium Potassium Chloride Carbon Dioxide Anion Gap BUN Creatinine Est Cr Clr Drug Dosing Est GFR ( Amer) Est GFR (Non-Af Amer) BUN/Creatinine Ratio Glucose POC Glucose 408 H* 297 H 309 H* Estimat Average Glucose Hemoglobin A1c Calcium Total Bilirubin AST ALT Alkaline Phosphatase Total Protein Albumin Globulin Albumin/Globulin Ratio 05/23/21 05/23/21 05/23/21 04:21 04:21 04:21 WBC 8.75 RBC 4.30 L Hgb 12.2 L Hct 37.4 L MCV 87.0 MCH 28.4 MCHC 32.6 RDW Std Deviation 49.8 H RDW Coeff of Fernie 15.6 H Plt Count 250 MPV 9.7 Immature Gran % (Auto) 1.3 Neut % (Auto) 86.6 Lymph % (Auto) 7.1 [place] % (Auto) 4.9 Eos % (Auto) 0.0 Baso % (Auto) 0.1 Neut # (Auto) 7.58 H Lymph # (Auto) 0.62 L [place] # (Auto) 0.43 Eos # (Auto) 0.00 Baso # (Auto) 0.01 Immature Gran # (Auto) 0.11 H RBC Morphology Unremarkable Sodium 141 Potassium 4.6 Chloride 115 H Carbon Dioxide 19 L Anion Gap 7.0 BUN 40 H Creatinine 1.14 Est Cr Clr Drug Dosing 86.0 Est GFR ( Amer) 82.3 Est GFR (Non-Af Amer) 71.0 BUN/Creatinine Ratio 35.1 H Glucose 294 H POC Glucose Estimat Average Glucose 212 Hemoglobin A1c 9.0 H Calcium 8.2 L Total Bilirubin 0.3 AST 41 H ALT 44 Alkaline Phosphatase 64 Total Protein 7.1 Albumin 2.4 L Globulin 4.7 H Albumin/Globulin Ratio 0.5 L 05/23/21 05/23/21 05/23/21 07:29 11:23 11:26 WBC RBC Hgb Hct MCV MCH MCHC RDW Std Deviation RDW Coeff of Fernie Plt Count MPV Immature Gran % (Auto) Neut % (Auto) Lymph % (Auto) [place] % (Auto) Eos % (Auto) Baso % (Auto) Neut # (Auto) Lymph # (Auto) [place] # (Auto) Eos # (Auto) Baso # (Auto) Immature Gran # (Auto) RBC Morphology Sodium Potassium Chloride Carbon Dioxide Anion Gap BUN Creatinine Est Cr Clr Drug Dosing Est GFR ( Amer) Est GFR (Non-Af Amer) BUN/Creatinine Ratio Glucose POC Glucose 271 H 355 H* 367 H* Estimat Average Glucose Hemoglobin A1c Calcium Total Bilirubin AST ALT Alkaline Phosphatase Total Protein Albumin Globulin Albumin/Globulin Ratio Medications Administered Current Inpatient Medications Acetaminophen (Acetaminophen 325 Mg Tab) 650 mg PO Q4H PRN PRN Reason: Pain or Fever Stop: 06/21/21 04:50 Albuterol (Albut/Ipratrop 3mg/0.5mg Neb 3 Ml Vial) 3 ml NEB Q4 PRN PRN Reason: Shortness Of Breath Or Wheezing Stop: 06/21/21 09:24 Dextrose (Dextrose 50% 50 Ml Syringe) 25 - 50 ml IV UD PRN; Protocol PRN Reason: Hypoglycemia Protocol Stop: 06/21/21 04:50 Enoxaparin Sodium (Enoxaparin Inj 60 Mg/0.6 Ml Syr) 60 mg SQ Q24H CATHLEEN Stop: 06/21/21 08:59 Last Admin: 05/23/21 09:09 Dose: 60 mg Documented by: Glucagon (Glucagon For Inj 1 Mg Vial) 1 mg SQ UD PRN; Protocol PRN Reason: Hypoglycemia Protocol Stop: 06/21/21 04:50 Glucose (Glucose 10 Tabs/Tube) 4 - 8 tabs PO UD PRN; Protocol PRN Reason: Hypoglycemia Protocol Stop: 06/21/21 04:50 Glucose (Glucose 40% Gel 15 Gm Tube) 15 - 30 gm PO UD PRN; Protocol PRN Reason: Hypoglycemia Protocol Stop: 06/21/21 04:50 Guaifenesin (Guaifenesin 600 Mg Tabcr) 1,200 mg PO Q12 CATHLEEN Stop: 06/21/21 08:59 Last Admin: 05/23/21 09:06 Dose: 1,200 mg Documented by: Dexamethasone 6 mg/ Syringe 1.5 mls @ 1 mls/min IV Q24H [facility] Stop: 06/21/21 08:59 Last Admin: 05/23/21 09:08 Dose: 1 mls/min Documented by: Remdesivir 100 mg/ Sodium (Chloride) 250 mls @ 250 mls/hr IV Q24H [facility]; Protocol Stop: 05/25/21 20:59 Last Infusion: 05/22/21 22:10 Dose: Infused Documented by: Azithromycin 500 mg/ Dextrose 255 mls @ 125 mls/hr IV Q24H [facility] Stop: 05/29/21 08:59 Last Admin: 05/23/21 09:06 Dose: 125 mls/hr Documented by: Insulin Aspart (Insulin Aspart 100 Units/Ml Vial) 0 units SC ACHS [facility] Stop: 06/21/21 07:29 Last Admin: 05/23/21 08:29 Dose: 10 units Documented by: Insulin Glargine (Insulin Glargine Solostar 100 Units/Ml 3 Ml Pen) 25 units SC BID [facility] Stop: 06/22/21 20:59 Insulin Human NPH (Insulin Human Nph) [facility] Stop: 06/23/21 08:59 Levothyroxine Sodium (Levothyroxine Sodium 75 Mcg Tablet) 75 mcg PO DAILYBB [facility] Stop: 06/21/21 06:29 Last Admin: 05/23/21 06:39 Dose: 75 mcg Documented by: Miscellaneous (Carbohydrates For Hypoglycemia ) 15 - 30 gm PO UD PRN PRN Reason: Hypoglycemia Protocol Stop: 06/21/21 04:50 Ondansetron HCl (Ondansetron Inj 2 Mg/Ml 2 Ml Vial) 4 mg IV Q6H PRN PRN Reason: Nausea Stop: 06/21/21 04:50 Simvastatin (Simvastatin 20 Mg Tab) 20 mg PO DAILY [facility] Stop: 06/21/21 08:59 Last Admin: 05/23/21 09:07 Dose: 20 mg Documented by: Sodium Chloride (Sodium Chloride 0.9% 10ml Flush) 30 ml IV Q24H [facility] Stop: 05/25/21 21:01 Last Admin: 05/22/21 22:37 Dose: 30 ml Documented by: Vitamin D (Cholecalciferol 1,000 Units 25 Mcg Tab) 1,000 [facility] Stop: 06/21/21 08:59 Last Admin: 05/23/21 09:07 Dose: 1,000 units Documented by: Zinc Sulfate (Zinc Sulfate 220 Mg Capsule) 220 mg PO [facility] Stop: 06/21/21 08:59 Last Admin: 05/23/21 09:07 Dose: 220 mg Documented by: PG Care Time/CCT Total # of Minutes Spent Total Time Spent with Patient: Total time spent is greater than 50% in coordination of care (as documented) at patient's floor/unit and/or counseling patient: Coding Level of Care Code 01350 Subseq Hosp Care Lvl 3 Diagnoses Pneumonia due to COVID-19 virus U07.1; J12.82 Hypoxia R09.02 Neurogenic bladder N31.9 Hypothyroidism E03.9 Hypertension I10 Dyslipidemia E78.5 Diabetes mellitus E11.9 BPH (benign prostatic hyperplasia) N40.0 KIM (acute kidney injury) N17.9
[2021-05-23] MEDS ORDERED: NovoLIN-R INSULIN PER UNIT CHARGE ONE (12:45)
[2021-05-23] MEDS ORDERED: FUROSEMIDE INJ 20 MG/2 ML VIAL IV ONE (12:56)
[2021-05-23] MEDS: INSULIN GLARGINE SOLOSTAR 100 UNITS/ML 3 ML PEN SC SCH (22:55)
[2021-05-24] MEDS: SODIUM CHLORIDE 0.9% 10ML FLUSH IV SCH ×2 (00:09→20:31)
[2021-05-24] MEDS: REMDESIVIR 100 MG in SODIUM CHLORIDE 0.9% 230 ML IV SCH ×2 (00:09→20:31)
[2021-05-24] MEDS: LEVOTHYROXINE SODIUM 75 MCG TABLET PO SCH (06:20)
[2021-05-24] MEDS: ACETAMINOPHEN 325 MG TAB PO PRN (06:20)
[2021-05-24 06:46] LABS: Appearance Urine Clear (Clear); Bacteria Urine Automated 4+ (Negative); Bilirubin Urine Negative (Negative); Blood Urine Negative (Negative); Color Urine Yellow; Epithelial Cell Urine Auto 0-5 /lpf (0-5); Glucose Urine UA Negative (Negative); Ketones Urine Negative (Negative); Leukocyte Esterase Urine 1+ (Negative); Nitrite Urine Positive (Negative); Protein Urine 1+ (Negative); RBC Urine Automated 0-4 /hpf (0-4); Specific Gravity Urine 1.023 (1.000-1.030); Urobilinogen Urine Negative (Negative); pH Urine 5.5 (4.5-7.5)
[2021-05-24 07:34] LABS: Hematocrit (blood only) 38.6 % (42-52); Hemoglobin 12.6 g/dL (14.0-18.0); Mean Corpuscular Hemoglobin 28.3 pg (25-34); Mean Corpuscular Hgb Conc 32.6 g/dL (32-36); Mean Corpuscular Volume 86.5 fL (80-100); Mean Platelet Volume 9.6 fL (7.4-10.4); Platelet Count 274 K/uL (130-400); RDW Coefficient of Variation 15.3 % (11.5-14.5); RDW Standard Deviation 48.7 fL (36.4-46.3); Red Blood Count 4.46 M/uL (4.7-6.1); White Blood Count 7.81 K/uL (4.8-10.8)
[2021-05-24 08:07] LABS: Basophils # (auto) 0.01 K/uL (0-0.2); Basophils % (auto) 0.1 %; Immature Granulocytes # (auto) 0.14 K/uL (0.00-0.02); Immature Granulocytes % (auto) 1.8 %; Lymphocytes # (auto) 0.64 K/uL (1.2-3.4); Lymphocytes % (auto) 8.2 %; Monocytes # (auto) 0.46 K/uL (0.11-0.59); Monocytes % (auto) 5.9 %; Neutrophils # (auto) 6.56 K/uL (1.4-6.5); Polychromasia 1+
[2021-05-24] MEDS: SIMVASTATIN 20 MG TAB PO SCH (08:07)
[2021-05-24] MEDS: dexAMETHasone 6 MG in SYRINGE 0 ML IV SCH (08:07)
[2021-05-24] MEDS: ZINC SULFATE 220 MG CAPSULE PO SCH (08:08)
[2021-05-24] MEDS: CHOLECALCIFEROL 1,000 UNITS 25 MCG TAB PO SCH (08:08)
[2021-05-24] MEDS: guaiFENesin 600 MG TABCR PO SCH ×2 (08:08→20:34)
[2021-05-24 08:09] LABS: Albumin Level 2.6 gm/dl (3.4-5.0); BUN Creatinine Ratio 38.2 (10-20); C Reactive Protein 6.18 mg/dl (0-0.29); Calcium 7.8 mg/dl (8.5-10.1); Creatinine Clr Calc Pharmacy 80.4 ml/min; Est GFR (African American) 75.8 ml/min; Est GFR (Non-African American) 65.4 ml/min; Potassium 4.4 mmol/L (3.5-5.1)
[2021-05-24 08:12] LABS: Albumin Globulin Ratio 0.6 (0.9-2); Bilirubin,Total 0.6 mg/dl (0.2-1); Globulin 4.3 gm/dl (2.5-4.0); Total Protein 6.9 gm/dl (6.4-8.2)
[2021-05-24] MEDS: AZITHROMYCIN 500 MG in DEXTROSE 5% 250 ML IV SCH (08:21)
[2021-05-24] MEDS: ENOXAPARIN INJ 60 MG/0.6 ML SYR SQ SCH (08:34)
[2021-05-24] MEDS: INSULIN ASPART 100 UNITS/ML VIAL SC SCH ×4 (08:38→20:36)
[2021-05-24] MEDS: INSULIN GLARGINE SOLOSTAR 100 UNITS/ML 3 ML PEN SC SCH (08:39)
[2021-05-24] MEDS ORDERED: INSULIN HUMAN NPH SC SCH (09:00)
[2021-05-24] MEDS ORDERED: INSULIN GLARGINE SOLOSTAR 100 UNITS/ML 3 ML PEN SC STA (13:04)
--- NOTE | 2021-05-24 13:29 | Hospitalist Progress Note ---
Date of Service May 24, 2021 Assessment & Plan (1) Pneumonia due to COVID-19 virus: Plan: COVID-19 pneumonia with hypoxia dexamethasone 6mg IV daily Remdesivir IV daily x 5 days, symptoms started 3 days prior to admission so he should benefit from Remdesivir Zithromax 500mg daily x 5 days Lovenox for DVT prophylaxis incentive spirometer eating and drinking better, Cr is 1.2 Lasix 20mg IV qAM (2) Hypoxia: Plan: acute hypoxic respiratory failure stable on 6L mask, can likely come down further, RN will titrate continue Lasix daily to keep lungs dry encourage prone or side sleeping if possible (3) Diabetes mellitus: Plan: HbA1c 9.0% very high glucose, > 400 yesterday added Lantus, NPH, tightened Novolog and gave regular insulin on 05/22 today, sugars are still in 300s spoke with pharmacy increase Lantus to 30 BID, continue NPH 50, novolog: tighten CF 10 with carb ratio 6 (4) KIM (acute kidney injury): Plan: Cr down to 1.2 from 1.4 will utilize Lasix now, drinking well enough (5) Neurogenic bladder: Plan: goodman catheter while here, monitor UO typically straight caths (6) Hypothyroidism: Plan: Continue levothyroxine 75 mcg daily (7) Hypertension: Plan: Hold lisinopril (8) Dyslipidemia: Plan: Continue simvastatin 20 mg daily (9) BPH (benign prostatic hyperplasia): Plan: Straight cathing as noted above Admission and Anticipated Discharge Date Admission Date: May 22, 2021 Subjective patient breathing easy, no distress at all, eating well sugars again trending up, added 5 more of Lantus and increase to 30 BID he says he recalls several years ago when he was hospitalized with a sugar of 1300 no fever, minimal cough, no diarrhea reviewed labs, Cr and K are stable, gave him Lasix this morning Review of Systems Review of Systems: All systems reviewed & are unremarkable except as noted in Subjective Respiratory: + cough, + dyspnea and + dyspnea on exertion Physical Exam Physical Exam: General: well developed, obese male, no acute distress, comfortable Neck: supple, trachea midline, normal thyroid Lungs: clear to auscultation bilaterally, tachypnea, slight accessory muscle use Heart: tachycardic S1 and S2, no murmur, peripheral pulses normal, capillary refill normal, no edema Abdomen: soft, NT, ND, + BS, no hepatomegaly, normal to percussion Extremities: normal in appearance, no cyanosis, no petechiae, strength is 5/5 bilaterally Neuro: awake, cooperative, moves all extremities, no focal motor deficits, CN II-XII intact, sensation in extremities intact, normal speech Skin: warm, dry, no rash, normal turgor Psych: Awake, alert oriented x 3, euthymic affect Results & Data Results & Data ([facility]) Vital Signs (Past 12 Hours) Vital Signs Temp Pulse Resp BP Pulse Ox 05/24/21 11:24 37.1 C 83 20 149/103 H 96 05/24/21 08:24 37.1 C 81 20 150/106 H 97 05/24/21 04:00 36.5 C 81 20 146/104 H 95 Laboratory Results Laboratory Results - last 24 hr 05/23/21 05/23/21 05/23/21 16:24 21:47 21:48 WBC RBC Hgb Hct MCV MCH MCHC RDW Std Deviation RDW Coeff of Fernie Plt Count MPV Immature Gran % (Auto) Neut % (Auto) Lymph % (Auto) Vilas % (Auto) Eos % (Auto) Baso % (Auto) Neut # (Auto) Lymph # (Auto) Vilas # (Auto) Eos # (Auto) Baso # (Auto) Immature Gran # (Auto) Polychromasia Sodium Potassium Chloride Carbon Dioxide Anion Gap BUN Creatinine Est Cr Clr Drug Dosing Est GFR ( Amer) Est GFR (Non-Af Amer) BUN/Creatinine Ratio Glucose POC Glucose 289 H 313 H* 330 H* Calcium Total Bilirubin AST ALT Alkaline Phosphatase C-Reactive Protein Total Protein Albumin Globulin Albumin/Globulin Ratio Urine Color Urine Appearance Urine pH Ur Specific Varina Urine Protein Urine Glucose (UA) Urine Ketones Urine Blood Urine Nitrite Urine Bilirubin Urine Urobilinogen Ur Leukocyte Esterase Urine WBC (Auto) Urine RBC (Auto) U Hyaline Cast (Auto) U Epithel Cells (Auto) Urine Bacteria (Auto) 05/24/21 05/24/21 05/24/21 00:13 05:45 06:56 WBC 7.81 RBC 4.46 L Hgb 12.6 L Hct 38.6 L MCV 86.5 MCH 28.3 MCHC 32.6 RDW Std Deviation 48.7 H RDW Coeff of Fernie 15.3 H Plt Count 274 MPV 9.6 Immature Gran % (Auto) 1.8 Neut % (Auto) 84.0 Lymph % (Auto) 8.2 Vilas % (Auto) 5.9 Eos % (Auto) 0.0 Baso % (Auto) 0.1 Neut # (Auto) 6.56 H Lymph # (Auto) 0.64 L Vilas # (Auto) 0.46 Eos # (Auto) 0.00 Baso # (Auto) 0.01 Immature Gran # (Auto) 0.14 H Polychromasia 1+ Sodium Potassium Chloride Carbon Dioxide Anion Gap BUN Creatinine Est Cr Clr Drug Dosing Est GFR ( Amer) Est GFR (Non-Af Amer) BUN/Creatinine Ratio Glucose POC Glucose 291 H Calcium Total Bilirubin AST ALT Alkaline Phosphatase C-Reactive Protein Total Protein Albumin Globulin Albumin/Globulin Ratio Urine Color Yellow Urine Appearance Clear Urine pH 5.5 Ur Specific Varina 1.023 Urine Protein 1+ H Urine Glucose (UA) Negative Urine Ketones Negative Urine Blood Negative Urine Nitrite Positive A Urine Bilirubin Negative Urine Urobilinogen Negative Ur Leukocyte Esterase 1+ H Urine WBC (Auto) 10-30 H Urine RBC (Auto) 0-4 U Hyaline Cast (Auto) 5-10 H U Epithel Cells (Auto) 0-5 Urine Bacteria (Auto) 4+ H 05/24/21 05/24/21 05/24/21 06:56 07:55 11:57 WBC RBC Hgb Hct MCV MCH MCHC RDW Std Deviation RDW Coeff of Fernie Plt Count MPV Immature Gran % (Auto) Neut % (Auto) Lymph % (Auto) Vilas % (Auto) Eos % (Auto) Baso % (Auto) Neut # (Auto) Lymph # (Auto) Vilas # (Auto) Eos # (Auto) Baso # (Auto) Immature Gran # (Auto) Polychromasia Sodium 142 Potassium 4.4 Chloride 113 H Carbon Dioxide 21 Anion Gap 8.0 BUN 47 H Creatinine 1.22 Est Cr Clr Drug Dosing 80.4 Est GFR ( Amer) 75.8 Est GFR (Non-Af Amer) 65.4 BUN/Creatinine Ratio 38.2 H Glucose 266 H POC Glucose 270 H 316 H* Calcium 7.8 L Total Bilirubin 0.6 AST 36 ALT 50 Alkaline Phosphatase 64 C-Reactive Protein 6.18 H Total Protein 6.9 Albumin 2.6 L Globulin 4.3 H Albumin/Globulin Ratio 0.6 L Urine Color Urine Appearance Urine pH Ur Specific Varina Urine Protein Urine Glucose (UA) Urine Ketones Urine Blood Urine Nitrite Urine Bilirubin Urine Urobilinogen Ur Leukocyte Esterase Urine WBC (Auto) Urine RBC (Auto) U Hyaline Cast (Auto) U Epithel Cells (Auto) Urine Bacteria (Auto) Medications Administered Current Inpatient Medications Acetaminophen (Acetaminophen 325 Mg Tab) 650 mg PO Q4H PRN PRN Reason: Pain or Fever Stop: 06/21/21 04:50 Last Admin: 05/24/21 06:20 Dose: 650 mg Documented by: Albuterol (Albut/Ipratrop 3mg/0.5mg Neb 3 Ml Vial) 3 ml NEB Q4 PRN PRN Reason: Shortness Of Breath Or Wheezing Stop: 06/21/21 09:24 Dextrose (Dextrose 50% 50 Ml Syringe) 25 - 50 ml IV UD PRN; Protocol PRN Reason: Hypoglycemia Protocol Stop: 06/21/21 04:50 Enoxaparin Sodium (Enoxaparin Inj 60 Mg/0.6 Ml Syr) 60 mg SQ Q24H [facility]ATH[facility] Stop: 06/21/21 08:59 Last Admin: 05/24/21 08:34 Dose: 60 mg Documented by: Glucagon (Glucagon For Inj 1 Mg Vial) 1 mg SQ UD PRN; Protocol PRN Reason: Hypoglycemia Protocol Stop: 06/21/21 04:50 Glucose (Glucose 10 Tabs/Tube) 4 - 8 tabs PO UD PRN; Protocol PRN Reason: Hypoglycemia Protocol Stop: 06/21/21 04:50 Glucose (Glucose 40% Gel 15 Gm Tube) 15 - 30 gm PO UD PRN; Protocol PRN Reason: Hypoglycemia Protocol Stop: 06/21/21 04:50 Guaifenesin (Guaifenesin 600 Mg Tabcr) 1,200 mg PO Q12 CATHLEEN Stop: 06/21/21 08:59 Last Admin: 05/24/21 08:08 Dose: 1,200 mg Documented by: Dexamethasone 6 mg/ Syringe 1.5 mls @ 1 mls/min IV Q24H CATHLEEN Stop: 06/21/21 08:59 Last Admin: 05/24/21 08:07 Dose: 1 mls/min Documented by: Remdesivir 100 mg/ Sodium (Chloride) 250 mls @ 250 mls/hr IV Q24H CATHLEEN; Protocol Stop: 05/25/21 20:59 Last Infusion: 05/24/21 01:39 Dose: Infused Documented by: Azithromycin 500 mg/ Dextrose 255 mls @ 125 mls/hr IV Q24H [facility] Stop: 05/29/21 08:59 Last Infusion: 05/24/21 10:29 Dose: Infused Documented by: Insulin Aspart (Insulin Aspart 100 Units/Ml Vial) 0 units SC ACHS [facility] Stop: 06/21/21 07:29 Last Admin: 05/24/21 12:22 Dose: 23 units Documented by: Insulin Glargine (Insulin Glargine Solostar 100 Units/Ml 3 Ml Pen) 30 units SC BID [facility] Stop: 06/23/21 20:59 Insulin Human NPH ([facility]ulin [facility]ph) [facility]: 06/23/21 08:59 Last Admin: 05/24/21 10:02 Dose: 50 units Documented by: Levothyroxine Sodium (Levothyroxine Sodium 75 Mcg Tablet) 75 mcg PO DAILYBB [facility] Stop: 06/21/21 06:29 Last Admin: 05/24/21 06:20 Dose: 75 mcg Documented by: Miscellaneous (Carbohydrates For Hypoglycemia ) 15 - 30 gm PO UD PRN PRN Reason: Hypoglycemia Protocol Stop: 06/21/21 04:50 Ondansetron HCl (Ondansetron Inj 2 Mg/Ml 2 Ml Vial) 4 mg IV Q6H PRN PRN Reason: Nausea Stop: 06/21/21 04:50 Simvastatin (Simvastatin 20 Mg Tab) 20 mg PO DAILY [facility] Stop: 06/21/21 08:59 Last Admin: 05/24/21 08:07 Dose: 20 mg Documented by: Sodium Chloride (Sodium Chloride 0.9% 10ml Flush) 30 ml IV Q24H [facility] Stop: 05/25/21 21:01 Last Admin: 05/24/21 00:09 Dose: 30 ml Documented by: Vitamin D (Cholecalciferol 1,000 Units 25 Mcg Tab) [facility] Stop: 06/21/21 08:59 Last Admin: 05/24/21 08:08 Dose: 1,000 units Documented by: Zinc Sulfate (Zinc Sulfate 220 Mg Capsule) [facility] Stop: 06/21/21 08:59 Last Admin: 05/24/21 08:08 Dose: 220 mg Documented by: PG Care Time/CCT Total # of Minutes Spent Total Time Spent with Patient: Total time spent is greater than 50% in coordination of care (as documented) at patient's floor/unit and/or counseling patient: Coding Level of Care Code 01891 Subseq Hosp Care Lvl 3 Diagnoses Pneumonia due to COVID-19 virus U07.1; J12.82 Hypoxia R09.02 Diabetes mellitus E11.9 KIM (acute kidney injury) N17.9 Neurogenic bladder N31.9 Hypothyroidism E03.9 Hypertension I10 Dyslipidemia E78.5 BPH (benign prostatic hyperplasia) N40.0
[2021-05-24] MEDS ORDERED: INSULIN GLARGINE SOLOSTAR 100 UNITS/ML 3 ML PEN SC SCH (21:00)
[2021-05-25] MEDS: LEVOTHYROXINE SODIUM 75 MCG TABLET PO SCH (05:30)
[2021-05-25] MEDS: ENOXAPARIN INJ 60 MG/0.6 ML SYR SQ SCH (08:28)
[2021-05-25] MEDS: guaiFENesin 600 MG TABCR PO SCH ×2 (08:29→19:55)
[2021-05-25] MEDS: dexAMETHasone 6 MG in SYRINGE 0 ML IV SCH (08:29)
[2021-05-25] MEDS: CHOLECALCIFEROL 1,000 UNITS 25 MCG TAB PO SCH (08:29)
[2021-05-25] MEDS: SIMVASTATIN 20 MG TAB PO SCH (08:30)
[2021-05-25] MEDS: AZITHROMYCIN 500 MG in DEXTROSE 5% 250 ML IV SCH (09:00)
[2021-05-25] MEDS ORDERED: INSULIN GLARGINE SOLOSTAR 100 UNITS/ML 3 ML PEN SC SCH ×3 (09:00→21:00)
[2021-05-25] MEDS: ZINC SULFATE 220 MG CAPSULE PO SCH (09:29)
[2021-05-25] MEDS: INSULIN HUMAN NPH SC SCH (09:31)
[2021-05-25] MEDS: INSULIN ASPART 100 UNITS/ML VIAL SC SCH ×4 (09:34→21:09)
[2021-05-25] MEDS: ACETAMINOPHEN 325 MG TAB PO PRN ×2 (11:30→18:35)
[2021-05-25] MEDS ORDERED: INSULIN HUMAN REGULAR PER UNIT 5 UNITS in SYRINGE 4.95 ML IV ONE (12:10)
[2021-05-25] MEDS ORDERED: INSULIN ASPART 100 UNITS/ML VIAL SC ONE (19:30)
[2021-05-25] MEDS: REMDESIVIR 100 MG in SODIUM CHLORIDE 0.9% 230 ML IV SCH (19:51)
[2021-05-25] MEDS: SODIUM CHLORIDE 0.9% 10ML FLUSH IV SCH (21:07)
[2021-05-25] MEDS ORDERED: PHARMACY GLYCEMIC MGMT CONSULT PRN (21:33)
[2021-05-26] MEDS: ACETAMINOPHEN 325 MG TAB PO PRN ×2 (00:27→06:30)
[2021-05-26] MEDS: INSULIN ASPART 100 UNITS/ML VIAL SC SCH ×6 (00:29→20:15)
--- NOTE | 2021-05-26 01:41 | Hospitalist Progress Note ---
Date of Service May 25, 2021 Assessment & Plan (1) Pneumonia due to COVID-19 virus: Plan: COVID-19 pneumonia with hypoxia dexamethasone 6mg IV daily, day 4 Remdesivir IV daily x 5 days, symptoms started 3 days prior to admission so he should benefit from Remdesivir, day 4 Zithromax 500mg daily x 5 days, day 4 Lovenox for DVT prophylaxis incentive spirometer eating and drinking better, Cr is 1.2 Lasix 20mg IV qAM, great response (2) Hypoxia: Plan: acute hypoxic respiratory failure improved to 5L mask, can likely come down further, RN will titrate continue Lasix daily to keep lungs dry encourage prone or side sleeping if possible (3) Diabetes mellitus: Plan: HbA1c 9.0% very high glucose, > 400 again today this was despite the increase in Lantus to 30 BID, continue NPH 50, novolog: tighten CF 10 with carb ratio 5 (4) KIM (acute kidney injury): Plan: Cr down to 1.2 from 1.4 will utilize Lasix now, drinking well enough (5) Neurogenic bladder: Plan: goodman catheter while here, monitor UO typically straight caths (6) Hypothyroidism: Plan: Continue levothyroxine 75 mcg daily (7) Hypertension: Plan: Hold lisinopril (8) Dyslipidemia: Plan: Continue simvastatin 20 mg daily (9) BPH (benign prostatic hyperplasia): Plan: Straight cathing as noted above Admission and Anticipated Discharge Date Admission Date: May 22, 2021 Subjective patient feeling a lot better, down to 5L mask his sugars continue to be an issue, asked pharmacy for consultation and their assistance no fever, no cough, no chest pain, no diarrhea Review of Systems Review of Systems: All systems reviewed & are unremarkable except as noted in Subjective Respiratory: + cough, + dyspnea and + dyspnea on exertion Physical Exam Physical Exam: General: well developed, obese male, no acute distress, comfortable Neck: supple, trachea midline, normal thyroid Lungs: clear to auscultation bilaterally, tachypnea, slight accessory muscle use Heart: tachycardic S1 and S2, no murmur, peripheral pulses normal, capillary ref ill normal, no edema Abdomen: soft, NT, ND, + BS, no hepatomegaly, normal to percussion Extremities: normal in appearance, no cyanosis, no petechiae, strength is 5/5 bilaterally Neuro: awake, cooperative, moves all extremities, no focal motor deficits, CN II-XII intact, sensation in extremities intact, normal speech Skin: warm, dry, no rash, normal turgor Psych: Awake, alert oriented x 3, euthymic affect Results & Data Results & Data ([facility]) Vital Signs (Past 12 Hours) Vital Signs Temp Pulse Pulse Resp BP Pulse Ox Pulse Ox 05/25/21 23:26 36.9 C 73 20 147/99 H 92 05/25/21 19:46 36.5 C 78 18 149/96 H 97 05/25/21 19:30 97 05/25/21 15:16 36.7 C 75 20 134/93 96 05/25/21 14:25 73 Laboratory Results Laboratory Results - last 24 hr 05/25/21 05/25/21 05/25/21 07:52 11:33 11:34 POC Glucose 100 H 434 H* 363 H* 05/25/21 05/25/21 05/25/21 16:32 16:33 19:14 POC Glucose 435 H* 334 H* 280 H 05/25/21 05/26/21 20:38 00:26 POC Glucose 280 H 138 H Medications Administered Current Inpatient Medications Acetaminophen (Acetaminophen 325 Mg Tab) 650 mg PO Q4H PRN PRN Reason: Pain or Fever Stop: 06/21/21 04:50 Last Admin: 05/26/21 00:27 Dose: 650 mg Documented by: Albuterol (Albut/Ipratrop 3mg/0.5mg Neb 3 Ml Vial) 3 ml NEB Q4 PRN PRN Reason: Shortness Of Breath Or Wheezing Stop: 06/21/21 09:24 Last Admin: 05/25/21 10:28 Dose: 3 ml Documented by: Dextrose (Dextrose 50% 50 Ml Syringe) 25 - 50 ml IV UD PRN; Protocol PRN Reason: Hypoglycemia Protocol Stop: 06/21/21 04:50 Enoxaparin Sodium (Enoxaparin Inj 60 Mg/0.6 Ml Syr) 60 mg SQ Q24H [facility] Stop: 06/21/21 08:59 Last Admin: 05/25/21 08:28 Dose: 60 mg Documented by: Glucagon (Glucagon For Inj 1 Mg Vial) 1 mg SQ UD PRN; Protocol PRN Reason: Hypoglycemia Protocol Stop: 06/21/21 04:50 Glucose (Glucose 10 Tabs/Tube) 4 - 8 tabs PO UD PRN; Protocol PRN Reason: Hypoglycemia Protocol Stop: 06/21/21 04:50 Glucose (Glucose 40% Gel 15 Gm Tube) 15 - 30 gm PO UD PRN; Protocol PRN Reason: Hypoglycemia Protocol Stop: 06/21/21 04:50 Guaifenesin (Guaifenesin 600 Mg Tabcr) 1,200 mg PO Q12 [facility] Stop: 06/21/21 08:59 Last Admin: 05/25/21 19:55 Dose: 1,200 mg Documented by: Dexamethasone 6 mg/ Syringe 1.5 mls @ 1 mls/min IV Q24H [facility] Stop: 06/21/21 08:59 Last Admin: 05/25/21 08:29 Dose: 1 mls/min Documented by: Azithromycin 500 mg/ Dextrose 255 mls @ 125 mls/hr IV Q24H [facility] Stop: 05/29/21 08:59 Last Infusion: 05/25/21 11:05 Dose: Infused Documented by: Insulin Aspart (Insulin Aspart 100 Units/Ml Vial) 0 units SC ACHS [facility] Stop: 06/21/21 07:29 Last Admin: 05/25/21 21:09 Dose: 14 units Documented by: Insulin Aspart (Insulin Aspart 100 Units/Ml Vial) 0 units SC TODAY@0000,0400 [facility] Stop: 06/25/21 00:00 Last Admin: 05/26/21 00:29 Dose: Not Given Documented by: Insulin Glargine (Insulin Glargine Solostar 100 Units/Ml 3 Ml Pen) 24 units SC BID [facility] Stop: 06/24/21 09:14 Last Admin: 05/25/21 21:10 Dose: 24 units Documented by: Insulin Human NPH (Insulin Human Nph) 60 units SC QAM [facility] Stop: 06/24/21 08:59 Last Admin: 05/25/21 09:31 Dose: 60 units Documented by: Levothyroxine Sodium (Levothyroxine Sodium 75 Mcg Tablet) 75 mcg PO DAILYBB [facility] Stop: 06/21/21 06:29 Last Admin: 05/25/21 05:30 Dose: 75 mcg Documented by: Miscellaneous (Carbohydrates For Hypoglycemia ) 15 - 30 gm PO UD PRN PRN Reason: Hypoglycemia Protocol Stop: 06/21/21 04:50 Miscellaneous Information (Pharmacy Glycemic Mgmt Consult) 1 ea N/A UD PRN PRN Reason: Consult Stop: 06/24/21 21:32 Ondansetron HCl (Ondansetron Inj 2 Mg/Ml 2 Ml Vial) 4 mg IV Q6H PRN PRN Reason: Nausea Stop: 06/21/21 04:50 Simvastatin (Simvastatin 20 Mg Tab) 20 mg PO DAILY [facility] Stop: 06/21/21 08:59 Last Admin: 05/25/21 08:30 Dose: 20 mg Documented by: Vitamin D (Cholecalciferol 1,000 Units 25 Mcg Tab) 1,000 units PO QAM [facility] Stop: 06/21/21 08:59 Last Admin: 05/25/21 08:29 Dose: 1,000 units Documented by: Zinc Sulfate (Zinc Sulfate 220 Mg Capsule) 220 mg PO QAM [facility] Stop: 06/21/21 08:59 Last Admin: 05/25/21 09:29 Dose: 220 mg Documented by: PG Care Time/CCT Total # of Minutes Spent Total Time Spent with Patient: Total time spent is greater than 50% in coordination of care (as documented) at patient's floor/unit and/or counseling patient: Coding Level of Care Code 89510 Subseq Hosp Care Lvl 2 Diagnoses Pneumonia due to COVID-19 virus U07.1; J12.82 Hypoxia R09.02 Diabetes mellitus E11.9 KIM (acute kidney injury) N17.9 Neurogenic bladder N31.9 Hypothyroidism E03.9 Hypertension I10 Dyslipidemia E78.5 BPH (benign prostatic hyperplasia) N40.0
[2021-05-26] MEDS: LEVOTHYROXINE SODIUM 75 MCG TABLET PO SCH (06:25)
[2021-05-26] MEDS: ZINC SULFATE 220 MG CAPSULE PO SCH (08:43)
[2021-05-26] MEDS: dexAMETHasone 6 MG in SYRINGE 0 ML IV SCH (08:43)
[2021-05-26] MEDS: SIMVASTATIN 20 MG TAB PO SCH (08:43)
[2021-05-26] MEDS: CHOLECALCIFEROL 1,000 UNITS 25 MCG TAB PO SCH (08:43)
[2021-05-26] MEDS: guaiFENesin 600 MG TABCR PO SCH ×2 (08:43→20:14)
[2021-05-26] MEDS: ENOXAPARIN INJ 60 MG/0.6 ML SYR SQ SCH (08:44)
[2021-05-26] MEDS: INSULIN HUMAN NPH SC SCH (08:48)
[2021-05-26] MEDS: INSULIN GLARGINE SOLOSTAR 100 UNITS/ML 3 ML PEN SC SCH ×2 (08:50→20:37)
[2021-05-26] MEDS: AZITHROMYCIN 500 MG in DEXTROSE 5% 250 ML IV SCH (09:44)
--- NOTE | 2021-05-26 13:33 | Hospitalist Progress Note ---
Date of Service May 26, 2021 Assessment & Plan (1) Pneumonia due to COVID-19 virus: Plan: clinically improving. dexamethasone 6mg IV daily, day 5 Remdesivir IV daily x 5 days - last day is today Zithromax 500mg daily x 5 days, day 5 - stop abx after today's dose Lovenox for DVT prophylaxis Cont pulmonary toilet Stop diuretics - appears euvolemic wean o2 as tolerated (2) Diabetes mellitus: Plan: HbA1c 9.0% on complex insulin regimen - hyperglycemia 2nd to steroids & stress of illness pharmacy providing glycemic assistance (3) KIM (acute kidney injury): Plan: resolved (4) Neurogenic bladder: Plan: goodman catheter while here then switch to straight cath I/O at discharge (does I/O cathing at home) (5) Hypothyroidism: Plan: Continue levothyroxine 75 mcg daily TSH 2.1 in 12/2020 (6) Hypertension: Plan: resume lisinopril (7) Dyslipidemia: Plan: Continue simvastatin 20 mg daily (8) BPH (benign prostatic hyperplasia): Plan: goodman in place (9) Catheter-associated urinary tract infection: Plan: e.coli will Rx with keflex 500mg BID x 10 days consider FLAVIO - r/o prostatitis (10) Morbid obesity with BMI of 40.0-44.9, adult: Plan: BMI 41 (11) DVT prophylaxis: Plan: lovenox daily Plan: needs PT/OT evals Admission and Anticipated Discharge Date Admission Date: May 22, 2021 Subjective pt sitting in chair by the window offers no major complaints feeling better eating "very well" only mild MOREJON no dyspnea at rest Review of Systems Review of Systems: gen - no fevers or chills pulm - no sputum CV - no cp, no orthopnea GI - no abd pain Physical Exam Physical Exam: gen - obese, NAD neck - no JVD mouth - MMM heart - RRR, s1 s2 lungs - minimal rales bases; no wheeze; no increased work of breathing abd - soft NT ext - no edema, pulses 2+ b/l Results & Data Results & Data ([facility]) Vital Signs (Past 12 Hours) Vital Signs Temp Pulse Pulse Resp BP Pulse Ox 05/26/21 12:45 20 97 05/26/21 11:38 37.1 C 84 19 143/96 H 98 05/26/21 07:49 82 05/26/21 06:37 36.6 C 71 20 139/93 93 05/26/21 03:41 36.9 C 70 20 135/87 93 PG Care Time/CCT Total # of Minutes Spent Total Time Spent with Patient: Total time spent is greater than 50% in coordination of care (as documented) at patient's floor/unit and/or counseling patient: Coding Level of Care Code 50385 Subseq Hosp Care Lvl 2 Diagnoses Pneumonia due to COVID-19 virus U07.1; J12.82 Diabetes mellitus E11.9 KIM (acute kidney injury) N17.9 Neurogenic bladder N31.9 Hypothyroidism E03.9 Hypertension I10 Dyslipidemia E78.5 BPH (benign prostatic hyperplasia) N40.0 Catheter-associated urinary tract infection T83.511A; N39.0 Morbid obesity with BMI of 40.0-44.9, adult E66.01; Z68.41 DVT prophylaxis Z29.9
--- NOTE | 2021-05-26 14:21 | Pharmacy Report ---
Pharmacy Glycemic Short Note 2 - Date of Service May 26, 2021 - Glycemic Short BSG Results (Last 24 hours): 05/25/21 05/25/21 05/25/21 16:32 16:33 19:14 POC Glucose 435 H* 334 H* 280 H 05/25/21 05/26/21 05/26/21 20:38 00:26 03:49 POC Glucose 280 H 138 H 75 05/26/21 05/26/21 07:48 11:28 POC Glucose 84 265 H OUTPATIENT ANTIDIABETIC REGIMEN: * Metformin 1000 mg PO BIDM * Lantus 5 units SC PM * Trulicity 3 mg SC on Sundays * HbA1c = 9% (05/23/21) ASSESSMENT: * 55 yo M admitted on 05/22/21 secondary to COVID-19 pneumonia. Pharmacy was consulted on the evening of 05/25/21 to assist with inpatient glycemic management. * Patient's BSGs uncontrolled for the most part since admission, likely due to steroids * Johan received a total of 211 units of insulin yesterday (54 units Lantus + 60 units NPH + 97 units Novolog) * BSGs were: [phone] mg/dL * Fasting down to 84 mg/dL this AM * Will reduce Lantus dose today PLAN FOR INPATIENT GLYCEMIC CONTROL: * Hold outpatient oral diabetes medications * Basal insulin * Lantus 20 units SC BID * NPH 60 units SC daily with dexamethasone * Bolus insulin * NovoLog per scale ACHS or Q6hrs while NPO * Goal Range: Low 100 mg/dL - High 140 mg/dL * Correction Factor: 10 mg/dL/unit * Nutritional / Prandial insulin per carb ratio of 1 unit per 3 grams CHO consumed PLAN FOR DISCHARGE: * To be determined
[2021-05-26] MEDS: cephALEXin 500 MG CAP PO SCH ×2 (14:24→20:14)
[2021-05-26] MEDS ORDERED: INSULIN HUMAN REGULAR PER UNIT 10 UNITS in SYRINGE 9.9 ML IV SCH (20:45)
[2021-05-26] MEDS ORDERED: POLYETHYLENE (MIRALAX) 17 GM PACK PO PRN (21:26)
[2021-05-27] MEDS: INSULIN ASPART 100 UNITS/ML VIAL SC SCH ×7 (00:09→20:35)
[2021-05-27] MEDS: LEVOTHYROXINE SODIUM 75 MCG TABLET PO SCH (05:59)
[2021-05-27 07:07] LABS: BUN Creatinine Ratio 33.4 (10-20); Calcium 8.4 mg/dl (8.5-10.1); Creatinine Clr Calc Pharmacy 120.5 ml/min; Est GFR (African American) 111.6 ml/min; Est GFR (Non-African American) 96.3 ml/min; Magnesium 1.9 mg/dl (1.8-2.4); Potassium 3.8 mmol/L (3.5-5.1)
[2021-05-27] MEDS: dexAMETHasone 6 MG in SYRINGE 0 ML IV SCH (08:08)
[2021-05-27] MEDS: ENOXAPARIN INJ 60 MG/0.6 ML SYR SQ SCH (08:08)
[2021-05-27] MEDS: CHOLECALCIFEROL 1,000 UNITS 25 MCG TAB PO SCH (08:08)
[2021-05-27] MEDS: guaiFENesin 600 MG TABCR PO SCH ×2 (08:08→20:26)
[2021-05-27] MEDS: SIMVASTATIN 20 MG TAB PO SCH (08:08)
[2021-05-27] MEDS: ZINC SULFATE 220 MG CAPSULE PO SCH (08:08)
[2021-05-27] MEDS: cephALEXin 500 MG CAP PO SCH ×2 (08:08→20:27)
[2021-05-27] MEDS: INSULIN GLARGINE SOLOSTAR 100 UNITS/ML 3 ML PEN SC SCH ×2 (08:48→20:34)
[2021-05-27] MEDS ORDERED: INSULIN HUMAN NPH SC SCH (09:00)
[2021-05-27] MEDS ORDERED: lisinopril 20 MG TAB PO STA (11:34)
--- NOTE | 2021-05-27 14:15 | Pharmacy Report ---
Pharmacy Glycemic Short Note 2 - Date of Service May 27, 2021 - Glycemic Short BSG Results (Last 24 hours): 05/26/21 05/26/21 05/26/21 16:44 20:10 20:13 Glucose POC Glucose 290 H 352 H* 327 H* 05/26/21 05/27/21 05/27/21 23:54 03:51 04:17 Glucose POC Glucose 159 H 60 L* 93 05/27/21 05/27/21 05/27/21 06:30 07:45 07:46 Glucose 83 POC Glucose 66 L* 65 L* 05/27/21 05/27/21 05/27/21 08:10 11:32 11:33 Glucose POC Glucose 82 310 H* 377 H* OUTPATIENT ANTIDIABETIC REGIMEN: * Metformin 1000 mg PO BIDM * Lantus 5 units SC PM * Trulicity 3 mg SC on Sundays * HbA1c = 9% (05/23/21) ASSESSMENT: 05/27: * BSGs remained uncontrolled yesterday: [phone] mg/dL * Received 40 units Lantus + 60 units NPH + 102 units Novolog + 10 units IV insulin (TMX=750 units) * Remains on Dexamethasone 6 mg IV daily for COVID. * This morning patient was hypoglycemic at 65 mg/dL but was not symptomatic. Required 15 g of carbs to improve BSG to 82 mg/dL. * Reduced Lantus dose in half. * Steroids appear to causing significant postprandial elevations in BSGs. * Increased NPH by 20% today * Tightened CF/CR 05/26: * 55 yo M admitted on 05/22/21 secondary to COVID-19 pneumonia. Pharmacy was consulted on the evening of 05/25/21 to assist with inpatient glycemic management. * Patient's BSGs uncontrolled for the most part since admission, likely due to steroids * Johan received a total of 211 units of insulin yesterday (54 units Lantus + 60 units NPH + 97 units Novolog) * BSGs were: [phone] mg/dL * Fasting down to 84 mg/dL this AM * Will reduce Lantus dose today PLAN FOR INPATIENT GLYCEMIC CONTROL: * Hold outpatient oral diabetes medications * Basal insulin * Lantus 10 units SC BID * NPH 72 units SC daily with dexamethasone * Bolus insulin * NovoLog per scale ACHS or Q6hrs while NPO * Goal Range: Low 100 mg/dL - High 140 mg/dL * Correction Factor: 8 mg/dL/unit * Nutritional / Prandial insulin per carb ratio of 1 unit per 2 grams CHO consumed PLAN FOR DISCHARGE: * To be determined
--- NOTE | 2021-05-27 20:45 | Hospitalist Progress Note ---
Date of Service May 27, 2021 Assessment & Plan (1) Pneumonia due to COVID-19 virus: Plan: clinically improving/resolving. dexamethasone 6mg IV daily, day 6 s/p 5-day course each of Remdesivir and Zithromax Lovenox for DVT prophylaxis Cont pulmonary toilet cont to wean o2 as tolerated (2) Diabetes mellitus: Plan: HbA1c 9.0% on complex insulin regimen - hyperglycemia 2nd to steroids & stress of illness pharmacy providing glycemic assistance very labile sugars will resume his metformin - CrCl has been stable (3) KIM (acute kidney injury): Plan: resolved (4) Neurogenic bladder: Plan: goodman catheter while here then switch to straight cath I/O at discharge (does I/O cathing at home) (5) Hypothyroidism: Plan: Continue levothyroxine 75 mcg daily TSH 2.1 in 12/2020 (6) Hypertension: Plan: cont lisinopril BPs controlled (7) Dyslipidemia: Plan: Continue simvastatin 20 mg daily (8) BPH (benign prostatic hyperplasia): Plan: goodman in place (9) Catheter-associated urinary tract infection: Plan: e.coli will Rx with keflex 500mg BID x 10 days consider FLAVIO - r/o prostatitis if present would need longer course of abx (10) Morbid obesity with BMI of 40.0-44.9, adult: Plan: BMI 40-41 (11) DVT prophylaxis: Plan: lovenox daily Plan: needs PT/OT evals but hopefully will be able to return home at d/c updated pt's point of contact listed in chart this evening by phone Admission and Anticipated Discharge Date Admission Date: May 22, 2021 Subjective pt feeling well irritated during the visit - 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 watching 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 football and 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 team was not doing well getting up to the bathroom and sitting in chair per staff eating well minimal cough minimal MOREJON I weaned him to 2 L NC O2 during the visit -sats remained low 90s Review of Systems Review of Systems: gen - no fevers or chills pulm - no dyspnea at rest CV - no chest pain or orthopnea GI - no N/V/D/Abd pain Physical Exam Physical Exam: gen - obese, NAD, looks great neck - no JVD mouth - MMM heart - RRR, s1 s2 lungs - scant rales bases; no wheeze; no increased work of breathing abd - soft NT ND BS+ ext - no edema, pulses 2+ b/l Results & Data Results & Data ([facility]) Vital Signs (Past 12 Hours) Vital Signs Temp Pulse Pulse Resp BP Pulse Ox 05/27/21 18:26 36.5 C 96 H 20 110/70 95 05/27/21 16:07 36.9 C 82 20 128/85 95 05/27/21 14:36 85 05/27/21 12:51 18 96 05/27/21 11:53 36.4 C L 97 H 16 127/83 94 Laboratory Results Laboratory Results - last 24 hr 05/26/21 05/27/21 05/27/21 23:54 03:51 04:17 Sodium Potassium Chloride Carbon Dioxide Anion Gap BUN Creatinine Est Cr Clr Drug Dosing Est GFR ( Amer) Est GFR (Non-Af Amer) BUN/Creatinine Ratio Glucose POC Glucose 159 H 60 L* 93 Calcium Magnesium 05/27/21 05/27/21 05/27/21 06:30 07:45 07:46 Sodium 140 Potassium 3.8 Chloride 107 Carbon Dioxide 26 Anion Gap 7.0 BUN 29 H Creatinine 0.86 Est Cr Clr Drug Dosing 120.5 Est GFR ( Amer) 111.6 Est GFR (Non-Af Amer) 96.3 BUN/Creatinine Ratio 33.4 H Glucose 83 POC Glucose 66 L* 65 L* Calcium 8.4 L Magnesium 1.9 05/27/21 05/27/21 05/27/21 08:10 11:32 11:33 Sodium Potassium Chloride Carbon Dioxide Anion Gap BUN Creatinine Est Cr Clr Drug Dosing Est GFR ( Amer) Est GFR (Non-Af Amer) BUN/Creatinine Ratio Glucose POC Glucose 82 310 H* 377 H* Calcium Magnesium 05/27/21 05/27/21 16:37 20:30 Sodium Potassium Chloride Carbon Dioxide Anion Gap BUN Creatinine Est Cr Clr Drug Dosing Est GFR ( Amer) Est GFR (Non-Af Amer) BUN/Creatinine Ratio Glucose POC Glucose 288 H 223 H Calcium Magnesium PG Care Time/CCT Total # of Minutes Spent Total Time Spent with Patient: Total time spent is greater than 50% in coordination of care (as documented) at patient's floor/unit and/or counseling patient: Coding Level of Care Code 88169 Subseq Hosp Care Lvl 2 Diagnoses Pneumonia due to COVID-19 virus U07.1; J12.82 Diabetes mellitus E11.9 KIM (acute kidney injury) N17.9 Neurogenic bladder N31.9 Hypothyroidism E03.9 Hypertension I10 Dyslipidemia E78.5 BPH (benign prostatic hyperplasia) N40.0 Catheter-associated urinary tract infection T83.511A; N39.0 Morbid obesity with BMI of 40.0-44.9, adult E66.01; Z68.41 DVT prophylaxis Z29.9
[2021-05-28] MEDS: INSULIN ASPART 100 UNITS/ML VIAL SC SCH ×6 (00:19→21:37)
[2021-05-28] MEDS: LEVOTHYROXINE SODIUM 75 MCG TABLET PO SCH (06:14)
[2021-05-28] MEDS ORDERED: metFORMIN HCL 500 MG TAB PO SCH (08:00)
[2021-05-28] MEDS: cephALEXin 500 MG CAP PO SCH ×2 (08:08→20:16)
[2021-05-28] MEDS: CHOLECALCIFEROL 1,000 UNITS 25 MCG TAB PO SCH (08:08)
[2021-05-28] MEDS: dexAMETHasone 6 MG in SYRINGE 0 ML IV SCH (08:08)
[2021-05-28] MEDS: ENOXAPARIN INJ 60 MG/0.6 ML SYR SQ SCH (08:08)
[2021-05-28] MEDS: guaiFENesin 600 MG TABCR PO SCH ×2 (08:08→20:16)
[2021-05-28] MEDS: lisinopril 20 MG TAB PO SCH (08:09)
[2021-05-28] MEDS: SIMVASTATIN 20 MG TAB PO SCH (08:09)
[2021-05-28] MEDS: ZINC SULFATE 220 MG CAPSULE PO SCH (08:09)
[2021-05-28] MEDS: INSULIN GLARGINE SOLOSTAR 100 UNITS/ML 3 ML PEN SC SCH (08:17)
[2021-05-28] MEDS ORDERED: INSULIN HUMAN NPH SC SCH (09:00)
--- NOTE | 2021-05-28 10:40 | Hospitalist Progress Note ---
Date of Service May 28, 2021 Assessment & Plan (1) Pneumonia due to COVID-19 virus: Plan: clinically resolving. dexamethasone 6mg IV daily, day 7 s/p 5-day course each of Remdesivir and Zithromax Lovenox for DVT prophylaxis Cont pulmonary toilet cont to wean o2 as tolerated 2-step tomorrow d-dimer elevated - tachy - thus CTA chest obtained, no PEs [id number] will send home with 30-day run of xarelto 10mg daily (2) Diabetes mellitus: Plan: HbA1c 9.0% on complex insulin regimen - hyperglycemia 2nd to steroids & stress of illness pharmacy providing glycemic assistance very labile sugars appreciate pharmcy help (3) KIM (acute kidney injury): Plan: resolved (4) Neurogenic bladder: Plan: goodman catheter while here then switch to straight cath I/O at discharge (does I/O cathing at home) (5) Hypothyroidism: Plan: Continue levothyroxine 75 mcg daily TSH 2.1 in 12/2020 (6) Hypertension: Plan: cont lisinopril BPs controlled (7) Dyslipidemia: Plan: Continue simvastatin 20 mg daily (8) BPH (benign prostatic hyperplasia): Plan: goodman in place back to I/O straight cath tomorrow (9) Catheter-associated urinary tract infection: Plan: e.coli will Rx with keflex 500mg BID x 10 days consider FLAVIO - r/o prostatitis if present would need longer course of abx (10) Morbid obesity with BMI of 40.0-44.9, adult: Plan: BMI 40-41 (11) DVT prophylaxis: Plan: lovenox daily xarelto 10mg daily x 30 days post-d/c Plan: PT/OT claudia completed - can return home hopeful for d/c home was tachycardia while sitting - autonomic insuff/POTS from COVID?? cont to monitor EKG - NSR, no ischemic changes Admission and Anticipated Discharge Date Admission Date: May 22, 2021 Subjective no complaints feels good states he wants to leave on Friday - will have a ride home in the afternoon during the visit I took his O2 off - sats stayed 95% in room air off the O2 during the visit I also noted his HR was >100 despite him sitting in the chair comfortably he denied any pleuritic pain or b/l leg pain Review of Systems Review of Systems: gen - no fevers, no chills; eating well CV - no cp, no orthopnea pulm - scant cough GI - no N/V/D Physical Exam Physical Exam: gen - obese, NAD, looks great; sitting in chair comfortably neck - no JVD mouth - MMM heart - tachy, s1 s2, no murmur lungs - scant rales bases; no wheeze; no increased work of breathing; excellent airation abd - soft NT ND BS+ ext - no edema, pulses 2+ b/l Results & Data Results & Data ([facility]) Vital Signs (Past 12 Hours) Vital Signs Temp Pulse Pulse Resp BP Pulse Ox Pulse Ox 05/28/21 10:08 93 05/28/21 07:41 37.1 C 86 16 127/88 97 05/28/21 06:24 82 05/28/21 02:49 36.8 C 84 20 114/73 96 05/27/21 22:45 36.8 C 83 81 18 125/84 96 Pulse Ox 05/28/21 10:08 92 05/28/21 07:41 05/28/21 06:24 05/28/21 02:49 05/27/21 22:45 Laboratory Results Chest CTA 05/28/21 12:51 CT angio chest PE protocol CT DOSE: 566.96 mGycm HISTORY: 55 years-old Male with COVID pneumonia, tachycardia, elevated d-dimer. Acute shortness of breath with elevated d-dimer. TECHNIQUE: Multiple CTA images of the chest were obtained after the intravenous administration of 120 ml Optiray. Coronal and sagittal MIPS were obtained from the axial data set and were submitted for review. All measurements were obtained according to NASCET criteria. A dose lowering technique was utilized adhering to the principles of ALARA. COMPARISON: Chest radiograph 05/22/2021 FINDINGS: CTA: Mild cardiomegaly. Mild coronary artery calcifications. No pericardial effusion. The study is degraded by respiratory motion artifact. No central pulmonary emboli identified. CT CHEST: No large thyroid nodule. No pneumothorax, pleural effusion or overt pulmonary edema. Multifocal bilateral subpleural predominant ill-defined groundglass and consolidative opacities. These findings appear to have mildly improved from prior. No suspicious pulmonary nodules or masses. Central airways are patent. Hepatic steatosis. Hepatosplenomegaly. Unremarkable soft tissues. No acute fracture or suspicious bone lesion. Healed chronic left-sided rib fractures. IMPRESSION: 1. Limited study secondary to respiratory motion artifact. No central pulmonary emboli identified. 2. Multilobar subpleural predominant groundglass and consolidative opacities are compatible with viral pneumonia, mildly improved from 05/22/2021. ACT 112: Negative or not required by law. The above report was generated using voice recognition software. It may contain grammatical, syntax or spelling errors. Electronically signed by: Arsenio Abraham M.D. 05/28/2021 3:22 PM Diagnostic Findings Laboratory Results - last 24 hr 05/28/21 05/28/21 05/28/21 09:46 11:15 11:15 WBC 13.14 H RBC 4.92 Hgb 13.9 L Hct 42.3 MCV 86.0 MCH 28.3 MCHC 32.9 RDW Std Deviation 46.2 RDW Coeff of Fernie 14.6 H Plt Count 281 MPV 9.9 D-Dimer 2040 H* Sodium 134 L Potassium 4.2 Chloride 102 Carbon Dioxide 24 Anion Gap 8.0 BUN 30 H Creatinine 1.21 D Est Cr Clr Drug Dosing 85.3 Est GFR ( Amer) 76.6 Est GFR (Non-Af Amer) 66.1 BUN/Creatinine Ratio 24.9 H Glucose 275 H POC Glucose Calcium 8.8 05/28/21 05/28/21 05/28/21 11:31 16:40 20:10 WBC RBC Hgb Hct MCV MCH MCHC RDW Std Deviation RDW Coeff of Fernie Plt Count MPV D-Dimer Sodium Potassium Chloride Carbon Dioxide Anion Gap BUN Creatinine Est Cr Clr Drug Dosing Est GFR ( Amer) Est GFR (Non-Af Amer) BUN/Creatinine Ratio Glucose POC Glucose 254 H 281 H 223 H Calcium 05/28/21 05/29/21 05/29/21 23:55 03:24 06:11 WBC RBC Hgb Hct MCV MCH MCHC RDW Std Deviation RDW Coeff of Fernie Plt Count MPV D-Dimer Sodium 135 L Potassium 4.0 Chloride 102 Carbon Dioxide 24 Anion Gap 9.0 BUN 27 H Creatinine 0.85 D Est Cr Clr Drug Dosing 121.1 Est GFR ( Amer) 112.1 Est GFR (Non-Af Amer) 96.7 BUN/Creatinine Ratio 31.4 H Glucose 146 H POC Glucose 152 H 100 H Calcium 8.5 05/29/21 07:35 WBC RBC Hgb Hct MCV MCH MCHC RDW Std Deviation RDW Coeff of Fernie Plt Count MPV D-Dimer Sodium Potassium Chloride Carbon Dioxide Anion Gap BUN Creatinine Est Cr Clr Drug Dosing Est GFR ( Amer) Est GFR (Non-Af Amer) BUN/Creatinine Ratio Glucose POC Glucose 102 H Calcium PG Care Time/CCT Total # of Minutes Spent Total Time Spent with Patient: Total time spent is greater than 50% in coordination of care (as documented) at patient's floor/unit and/or counseling patient: Coding Level of Care Code 22362 Subseq Hosp Care Lvl 3 Diagnoses Pneumonia due to COVID-19 virus U07.1; J12.82 Diabetes mellitus E11.9 KIM (acute kidney injury) N17.9 Neurogenic bladder N31.9 Hypothyroidism E03.9 Hypertension I10 Dyslipidemia E78.5 BPH (benign prostatic hyperplasia) N40.0 Catheter-associated urinary tract infection T83.511A; N39.0 Morbid obesity with BMI of 40.0-44.9, adult E66.01; Z68.41 DVT prophylaxis Z29.9
[2021-05-28 11:59] LABS: Hematocrit (blood only) 42.3 % (42-52); Hemoglobin 13.9 g/dL (14.0-18.0); Mean Corpuscular Hemoglobin 28.3 pg (25-34); Mean Corpuscular Hgb Conc 32.9 g/dL (32-36); Mean Platelet Volume 9.9 fL (7.4-10.4); Platelet Count 281 K/uL (130-400); RDW Coefficient of Variation 14.6 % (11.5-14.5); RDW Standard Deviation 46.2 fL (36.4-46.3); Red Blood Count 4.92 M/uL (4.7-6.1); White Blood Count 13.14 K/uL (4.8-10.8)
[2021-05-28 12:05] LABS: BUN Creatinine Ratio 24.9 (10-20); Calcium 8.8 mg/dl (8.5-10.1); Creatinine Clr Calc Pharmacy 85.3 ml/min; Est GFR (African American) 76.6 ml/min; Est GFR (Non-African American) 66.1 ml/min; Potassium 4.2 mmol/L (3.5-5.1)
[2021-05-28 12:06] LABS: D Dimer 2040 ug/L FEU (0-500)
--- NOTE | 2021-05-28 12:49 | Pharmacy Report ---
Pharmacy Glycemic Short Note 2 - Date of Service May 28, 2021 - Glycemic Short BSG Results (Last 24 hours): 05/27/21 05/27/21 05/28/21 16:37 20:30 00:13 Glucose POC Glucose 288 H 223 H 104 H 05/28/21 05/28/21 05/28/21 04:01 04:04 04:07 Glucose POC Glucose 69 L* 134 H 69 L* 05/28/21 05/28/21 05/28/21 04:36 07:35 09:46 Glucose 275 H POC Glucose 90 88 05/28/21 11:31 Glucose POC Glucose 254 H OUTPATIENT ANTIDIABETIC REGIMEN: * Metformin 1000 mg PO BIDM * Lantus 5 units SC PM * Trulicity 3 mg SC on Sundays * HbA1c = 9% (05/23/21) ASSESSMENT: 05/28: * BSGs remain labile, 65, 377, 288, 223, 104 mg/dL yesterday * Received 20 units of Lantus, 72 units of NPH, and 147 units of Novolog (239 units total) * Hypoglycemia noted overnight at 0400 check, 62 mg/dL * Despite high BSGs throughout the day, will slightly decrease NPH (~0.54 unit/kg) and further decrease Lantus today * Continue tightened Novolog parameters sans HS check will loosen further as this may be partially responsible for low observed overnight 05/27: * BSGs remained uncontrolled yesterday: [phone] mg/dL * Received 40 units Lantus + 60 units NPH + 102 units Novolog + 10 units IV insulin (LNB=717 units) * Remains on Dexamethasone 6 mg IV daily for COVID. * This morning patient was hypoglycemic at 65 mg/dL but was not symptomatic. Required 15 g of carbs to improve BSG to 82 mg/dL. * Reduced Lantus dose in half. * Steroids appear to causing significant postprandial elevations in BSGs. * Increased NPH by 20% today * Tightened CF/CR 05/26: * 55 yo M admitted on 05/22/21 secondary to COVID-19 pneumonia. Pharmacy was consulted on the evening of 05/25/21 to assist with inpatient glycemic management. * Patient's BSGs uncontrolled for the most part since admission, likely due to steroids * Johan received a total of 211 units of insulin yesterday (54 units Lantus + 60 units NPH + 97 units Novolog) * BSGs were: [phone] mg/dL * Fasting down to 84 mg/dL this AM * Will reduce Lantus dose today PLAN FOR INPATIENT GLYCEMIC CONTROL: * Hold outpatient oral diabetes medications * Basal insulin - decrease * Lantus 10 units SC x 1 this morning, will hold this evening * NPH 65 units SC daily with dexamethasone * Bolus insulin - loosen HS parameters * NovoLog per scale ACHS or Q6hrs while NPO * Goal Range: Low 100 mg/dL - High 140 mg/dL * Correction Factor: 8 mg/dL/unit with meals, 20 mg/dL/unit at HS * Nutritional / Prandial insulin per carb ratio of 1 unit per 2 grams CHO consumed with meals, 1 unit per 6 grams CHO at HS PLAN FOR DISCHARGE: * HbA1c of 9% is elevated, reasonable goal for this patient would be less than 7% * Likely reasonable to increase Lantus dose, will need to follow inpatient BSG data once steroids discontinued * Continue home metformin and Trulicity
[2021-05-28] MEDS ORDERED: OPTIRAY 320 125ml IV ONE (14:56)
--- NOTE | 2021-05-28 15:23 | CT Scan Report ---
CT angio chest PE protocol CT DOSE: 566.96 mGycm HISTORY: 55 years-old Male with COVID pneumonia, tachycardia, elevated d-dimer. Acute shortness of breath with elevated d-dimer. TECHNIQUE: Multiple CTA images of the chest were obtained after the intravenous administration of 120 ml Optiray. Coronal and sagittal MIPS were obtained from the axial data set and were submitted for review. All measurements were obtained according to NASCET criteria. A dose lowering technique was u tilized adhering to the principles of ALARA. COMPARISON: Chest radiograph 05/22/2021 FINDINGS: CTA: Mild cardiomegaly. Mild coronary artery calcifications. No pericardial effusion. The study is degrade d by respiratory motion artifact. No central pulmonary emboli identified. CT CHEST: No large thyroid nodule. No pneumothorax, pleural effusion or overt pulmonary edema. Multifocal bilat eral subpleural predominant ill-defined groundglass and consolidative opacities. These findings appea r to have mildly improved from prior. No suspicious pulmonary nodules or masses. Central airways are patent. Hepatic steatosis. Hepatosplenomegaly. Unremarkable soft tissues. No acute fracture or suspic ious bone lesion. Healed chronic left-sided rib fractures. IMPRESSION: 1. Limited study secondary to respiratory motion artifact. No central pulmonary emboli identified. 2. Multilobar subpleural predominant groundglass and consolidative opacities are compatible with morgan l pneumonia, mildly improved from 05/22/2021. ACT 112: Negative or not required by law. The above report was generated using voice recognition software. It may contain grammatical, syntax o r spelling errors. Electronically signed by: Arsenio Abraham M.D. 05/28/2021 3:22 PM
[2021-05-29] MEDS: LEVOTHYROXINE SODIUM 75 MCG TABLET PO SCH (06:20)
[2021-05-29 07:44] LABS: BUN Creatinine Ratio 31.4 (10-20); Calcium 8.5 mg/dl (8.5-10.1); Creatinine Clr Calc Pharmacy 121.1 ml/min; Est GFR (African American) 112.1 ml/min; Est GFR (Non-African American) 96.7 ml/min
[2021-05-29] MEDS: cephALEXin 500 MG CAP PO SCH ×2 (08:35→20:03)
[2021-05-29] MEDS: CHOLECALCIFEROL 1,000 UNITS 25 MCG TAB PO SCH (08:36)
[2021-05-29] MEDS: ENOXAPARIN INJ 60 MG/0.6 ML SYR SQ SCH (08:36)
[2021-05-29] MEDS: guaiFENesin 600 MG TABCR PO SCH ×2 (08:36→20:03)
[2021-05-29] MEDS: SIMVASTATIN 20 MG TAB PO SCH (08:37)
[2021-05-29] MEDS: ZINC SULFATE 220 MG CAPSULE PO SCH (08:37)
[2021-05-29] MEDS: lisinopril 20 MG TAB PO SCH (08:37)
[2021-05-29] MEDS: INSULIN ASPART 100 UNITS/ML VIAL SC SCH ×4 (08:42→20:03)
[2021-05-29] MEDS: INSULIN HUMAN NPH SC SCH (08:43)
[2021-05-29] MEDS: dexAMETHasone 6 MG in SYRINGE 0 ML IV SCH (09:54)
--- NOTE | 2021-05-29 16:08 | Electrocardiogram Report ---
Test Reason : Blood Pressure : / mmHG Vent. Rate : 099 BPM Atrial Rate : 099 BPM P-R Int : 140 ms QRS Dur : 078 ms QT Int : 354 ms P-R-T Axes : 074 118 069 degrees QTc Int : 454 ms Normal sinus rhythm Right axis deviation Abnormal ECG When compared with ECG of 22-MAY-2021 00:28, QRS axis Shifted right Confirmed by Abel Sim ([id number] on 05/29/2021 4:08:40 PM Referred By: Brett Harding Confirmed By:Abel Sim
--- NOTE | 2021-05-29 16:12 | Discharge Summary ---
Date of Service date of admission - May 22, 2021 date of discharge - May 30, 2021 Admission HPI Per Admitting Provider The patient is a 55-year-old male with a past medical history including neurogenic bladder requiring self catheterization, obesity, spigelian hernia, umbilical hernia, hypothyroidism, hypertension, dyslipidemia, diabetes mellitus, BPH with LUTS, hepatic steatosis, and left kidney lesion. He presents to the emergency department with complaints of cough and shortness of breath that have been worsening over the past several days. Patient states that he did receive a COVID-19 test 2 days ago and he reports it was positive. On arrival the patient is hypoxic at 88% in room air, he was therefore placed on nasal cannula oxygen with good improvement in his saturations. He tells me he did not receive his COVID-19 vaccination. Abnormal laboratories: Hemoglobin 12.2, hematocrit 37.8, glucose 408, BUN 40, creatinine 1.43, albumin 2.7. Patient was COVID-19 positive. Patient is influenza and RSV negative. Pulse ox on room air is 88% chest x-ray Shows multifocal pneumonia Treatment from the emergency department: NSS 1 L, regular insulin 5 units IV, and dexamethasone 10 mg IV Principal Diagnosis 1. COVID-19 pneumonia 2. uncontrolled type 2 diabetes mellitus Discharge Exam gen - obese, NAD, looks great; sitting in chair comfortably neck - no JVD mouth - MMM heart - RRR, s1 s2, no murmur lungs - scant rales bases; no wheeze; no increased work of breathing; excellent airation abd - soft NT ND BS+ ext - no edema, pulses 2+ b/l FLAVIO - prostate enlarged but not boggy, smooth, no nodules Discharge Data Allergies Allergy/AdvReac Type Severity Reaction Status Date / Time No Known Allergies Allergy Verified 05/22/21 00:50 Consultations PT OT Diabetes Education Procedures Performed 2-step ambulatory O2 test - passed, no need for home supplemental O2 Ordered Studies Chest X-Ray 05/21/21 23:50 XR chest 1V portable CLINICAL HISTORY: Dyspnea TECHNIQUE: Single frontal radiograph of the chest was obtained. Comparison: Comparison is made to chest one view 08/15/2017 FINDINGS: No lines and tubes are seen. The cardiomediastinal silhouette is normal. Lungs are underinflated. Scattered airspace opacities are seen. No evidence of pleural effusion or pneumothorax. IMPRESSION: Underinflated lungs with diffuse airspace opacities which may represent atelectasis, pneumonia, and/or aspiration. ACT 112: Negative or not required by law. Electronically signed by: Raudel Kyle M.D. 05/22/2021 7:32 AM Chest CTA 05/28/21 12:51 CT angio chest PE protocol CT DOSE: 566.96 mGycm HISTORY: 55 years-old Male with COVID pneumonia, tachycardia, elevated d-dimer. Acute shortness of breath with elevated d-dimer. TECHNIQUE: Multiple CTA images of the chest were obtained after the intravenous administration of 120 ml Optiray. Coronal and sagittal MIPS were obtained from the axial data set and were submitted for review. All measurements were obtained according to NASCET criteria. A dose lowering technique was utilized adhering to the principles of ALARA. COMPARISON: Chest radiograph 05/22/2021 FINDINGS: CTA: Mild cardiomegaly. Mild coronary artery calcifications. No pericardial effusion. The study is degraded by respiratory motion artifact. No central pulmonary emboli identified. CT CHEST: No large thyroid nodule. No pneumothorax, pleural effusion or overt pulmonary edema. Multifocal bilateral subpleural predominant ill-defined groundglass and consolidative opacities. These findings appear to have mildly improved from prior. No suspicious pulmonary nodules or masses. Central airways are patent. Hepatic steatosis. Hepatosplenomegaly. Unremarkable soft tissues. No acute fracture or suspicious bone lesion. Healed chronic left-sided rib fractures. IMPRESSION: 1. Limited study secondary to respiratory motion artifact. No central pulmonary emboli identified. 2. Multilobar subpleural predominant groundglass and consolidative opacities are compatible with viral pneumonia, mildly improved from 05/22/2021. ACT 112: Negative or not required by law. The above report was generated using voice recognition software. It may contain grammatical, syntax or spelling errors. Electronically signed by: Arsenio Abraham M.D. 05/28/2021 3:22 PM Hospital Course (1) Pneumonia due to COVID-19 virus: Peak O2 requirement was 8 liters NC. He received IV dexamethasone x 7 days, and 5-day courses each of Remdesivir and Zithromax. Lovenox was used for DVT prophylaxis. He made gradual improvement in all pulmonary symptoms, and O2 was weaned off by discharge. 2-step ambulatory O2 test was passed; thus, he will not need home O2. Due to tachycardia and elevation in his d-dimer (level = 2039) a CTA of the chest was obtained later in his stay. This did NOT show PEs. He will complete 2 more days of oral dexamethasone at home. He will also take Xarelto 10mg once daily for 30 days for DVT prophylaxis. (2) Diabetes mellitus: HbA1c 9.0% Due to the stress of his illness as well as steroids his BSGs were very high throughout his stay. He required a complex insulin regimen to maintain euglycemia. The pharmacy glycemic team provided cuello recommendations for his glycemic care. As his illness improved his BSGs gradually improved. At discharge we advised the following - * resumption of metformin 1000mg twice daily * novolog 15 units TID w/ meals * lantus 40 units daily x 2 days, then 20 units daily thereafter * hold Trulicity He will need close follow-up for his diabetes given the lability he experienced while here as well as his uncontrolled chronic disease at home (evidenced by A1C of 9%). (3) KIM (acute kidney injury): resolved Peak Cr 1.4, improving to 0.8 at discharge (4) Neurogenic bladder: Typically uses a straight cath at home, performing I/O catheterization multiple times. During the stay he had a goodman catheter which was discontinued 24 hours prior to discharge. He will resume I/O straight cathing at home. (5) Hypothyroidism: Continue levothyroxine 75 mcg daily TSH 2.1 in 12/2020 (6) Hypertension: cont lisinopril BPs controlled while here (7) Dyslipidemia: Continue simvastatin 20 mg daily (8) BPH (benign prostatic hyperplasia): (9) Catheter-associated urinary tract infection: 2nd e.coli FLAVIO did not show evidence of prostatitis he received IV/PO antibiotics during the stay he was transitioned to keflex 500mg BID x 7 days upon discharge (10) Morbid obesity with BMI of 40.0-44.9, adult: BMI 40-41 (11) DVT prophylaxis: lovenox while hospitalized. then - Xarelto 10mg daily x 30 days post-d/c. cleared for home by PT/OT Total Time Total Time Spent Total Time Spent (In Minutes): 50 Discharge Plan Discharge Items Patient Disposition: Home - Self-Care Reason For Visit: COVID-19 PNEUMONIA; Uncontrolled Diabetes Discharge Diagnosis: 1. COVID-19 pneumonia - resolving 2. Uncontrolled diabetes - improving 3. Urinary Tract Infection Activity: As commented below Activity Comment: gradually increase your activities over the next 7-10 days Sexual Activity: Wait until after follow-up appointment Exercise/Sports: Wait until after follow-up appointment Driving/Machine Use: Resume 3 days after discharge Non-emergency contact: Primary Care Provider Call non-emergency contact if: you have any medication questions, your symptoms worsen and you have a fever Follow-up/Referrals: Alicia Shelton PA-C [Primary Care Provider] - (see Ms Shelton within 1 week) Diet: Carb Consistent or DM2 Addtl Attending Provider Instructions: Mr Robert, You were admitted to the hospital for COVID-19 pneumonia and elevated blood sugars. You required oxygen for much of your stay but this was weaned off by discharge. A walking test on 05/29 showed that you do not need oxygen at home. You required a fair amount of insulin in the hospital because of the stress of your illness and the steroids for the COVID. Your sugars have improved over time. Recommendations - 1. For prevention of DVT blood clots of the legs / blood clots of the lungs while you are recovering from COVID - * take Xarelto 10mg once daily for 30 days, first dose on 05/30/21 * this is a low-dose blood thinner 2. Continue to use your flutter valve and incentive spirometry over the next 7- 10 days. 3. OK to use [id number] mucinex up to 1200mg twice daily as needed for cough/congestion. 4. Purchase a pulse oximeter from [facility] or any other pharmacy so that you can monitor your oxygen levels on your finger at home. If your oxygen levels are consistently greater than 90% this is acceptable. If your oxygen levels are consistently LESS THAN 90% please seek medical attention. Recommend checking your oxygen levels 2-3 times each day at various times. 5. Please be sure to listen to your body and rest when needed. You will have a few more weeks of recovery from your illness. When you are tired it is ok to nap. Gradually increase your activities over the next few weeks. You may notice some shortness of breath for a period of time when you do activities. This will ultimately resolve as your lungs heal further. Plan to rest at home for the next few days. 6. Strongly consider a flu shot in about 3-4 weeks. 7. Strongly consider a COVID vaccine in about 3 months. 8. Wear a mask any time you leave your home. 9. For your urinary tract infection - * cephalexin 500mg twice daily for 7 days, first dose when you get home today 10. Resume your normal self-cathing regimen upon return home 11. Diabetes - please do the following - * OK TO RESUME your metformin today * HOLD your Trulicity * INSULINS - * On 05/30 and 05/31 - take lantus 40 units each time. Give yourself your lantus shot IN THE MORNING rather than at night-time. * On 06/01 - Friday - lower the lantus to 20 units each morning. This dose is an estimate. You may need more or less depending on what your sugars do over the next week. Take the lantus each morning until you see your family doctor. * NOVOLOG- this is short-acting insulin for your meal coverage - take 15 units with breakfast, 15 units with lunch, and 15 units with dinner. * you will need to check your blood sugars before each meal and at bedtime so that we can monitor your blood sugars carefully * write all of your numbers down each time * hopefully we can get you back to your normal regimen of Metformin, Trulicity, and Lantus over the next 1-2 weeks; this will need to be guided by your family doctor 12. Take dexamethasone steroid -6mg- once daily on 05/30 and 05/31 then stop. Take with food. This is for your COVID pneumonia. F/u with Ms Shelton WITHIN 1 WEEK [facility] to [facility] if - * you develop fevers over 100 degrees * you have worsening shortness of breath * you have bleeding from any location because of the Xarelto blood thinner (heavy nose bleeding, rectal bleeding, etc) * you have chest pains * you have uncontrolled blood sugars (over 300 consistently) despite your insulins * any other concerns Best wishes for a speedy recovery! Dr Figueroa Pending Studies at Discharge: No Stand-Alone Forms: My [facility], Smoking Cessation Medications and DC Order Prescriptions: New Xarelto 10 mg tablet 10 mg PO DAILY 30 Days Qty: 30 RF: 0 insulin aspart U-100 [Novolog Flexpen U-100 Insulin] 100 unit/mL (3 mL) insulin pen 15 unit subcut .TID with meals Qty: 15 RF: 1 metformin 500 mg Tablet 1,000 mg PO BIDM Qty: 1 RF: 0 Continued simvastatin 20 mg tablet 20 mg PO DAILY Qty: 90 RF: 3 (DME) pen needle, diabetic [UltiCare Pen Needle] 31 gauge x 3/16" needle See Dose Instructions .ROUTE .MEDSUPPLY Qty: 100 RF: 3 levothyroxine 75 mcg tablet 75 mcg PO DAILY Qty: 90 RF: 1 (DME) OneTouch Verio test strips Strip See Dose Instructions .ROUTE .MEDSUPPLY Qty: 100 RF: 3 lisinopril 40 mg tablet 20 mg PO DAILY Qty: 90 RF: 3 benzonatate 200 mg capsule 200 mg PO TID PRN (Reason: cough) Qty: 30 RF: 0 (DME) lancets [OneTouch UltraSoft Lancets] misc See Dose Instructions .ROUTE .MEDSUPPLY Qty: 50 RF: 0 Changed Lantus Solostar U-100 Insulin 100 unit/mL (3 mL) insulin pen See Rx Instructions .ROUTE .COMPLEX Qty: 15 RF: 2 Discontinued metformin 1,000 mg tablet 1,000 mg PO BID Qty: 180 RF: 3 dulaglutide 3 mg/0.5 mL pen injector 3 mg subcut WK Qty: 2 RF: 3 Discharge Orders: Discharge Order (Routine); Ordered 05/30/21 Ordered By: Agapito Kaur/Other Patient Handouts: 2019-nCoV, COVID-19 Home Care, COVID-19 and the Flu What's ... Admission Data Admit Date/Time: 05/22/21 02:49 Attending Provider: Agapito Figueroa Admit Provider: Morgan Sanches Primary Care Provider: Alicia Shelton Other Providers: Morgan Sanches Other Interventions: Discharge Summary Assessment (RN) Last Done: 05/30/21 08:27 Coding Level of Care Code D/C DAY MANAGEMENT >30 MINS Diagnoses Pneumonia due to COVID-19 virus U07.1; J12.82 Diabetes mellitus E11.9 KIM (acute kidney injury) N17.9 Neurogenic bladder N31.9 Hypothyroidism E03.9 Hypertension I10 Dyslipidemia E78.5 BPH (benign prostatic hyperplasia) N40.0 Catheter-associated urinary tract infection T83.511A; N39.0 Morbid obesity with BMI of 40.0-44.9, adult E66.01; Z68.41 DVT prophylaxis Z29.9
[2021-05-30] MEDS: LEVOTHYROXINE SODIUM 75 MCG TABLET PO SCH (05:47)
[2021-05-30 08:00] LABS: BUN Creatinine Ratio 30.4 (10-20); Calcium 8.9 mg/dl (8.5-10.1); Creatinine Clr Calc Pharmacy 118.4 ml/min; Est GFR (Non-African American) 95.8 ml/min; Potassium 4.6 mmol/L (3.5-5.1)
[2021-05-30] MEDS: guaiFENesin 600 MG TABCR PO SCH (08:06)
[2021-05-30] MEDS: cephALEXin 500 MG CAP PO SCH (08:06)
[2021-05-30] MEDS: dexAMETHasone 6 MG in SYRINGE 0 ML IV SCH (08:06)
[2021-05-30] MEDS: CHOLECALCIFEROL 1,000 UNITS 25 MCG TAB PO SCH (08:06)
[2021-05-30] MEDS: ENOXAPARIN INJ 60 MG/0.6 ML SYR SQ SCH (08:07)
[2021-05-30] MEDS: lisinopril 20 MG TAB PO SCH (08:07)
[2021-05-30] MEDS: SIMVASTATIN 20 MG TAB PO SCH (08:07)
[2021-05-30] MEDS: ZINC SULFATE 220 MG CAPSULE PO SCH (08:07)
[2021-05-30] MEDS: INSULIN ASPART 100 UNITS/ML VIAL SC SCH (08:08)
[2021-05-30] MEDS: INSULIN HUMAN NPH SC SCH (08:08)
--- NOTE | 2021-06-13 14:34 | Coding Query ---
CODING QUERY To promote full compliance with coding requirements relating to patient care, provider participation is requested in all cases of commercial lines insurance agent uncertainty. Please assist us with the question(s) below: In the record, it states that the patient has a "Catheter-associated" UTI. There is documentation that the patient does self-catheterization and that the a Goodman was placed during the admit. Please clarify below the cause of the UTI if applicable. Thank you. ( x ) Self-catheterization was the cause of the UTI. ( ) The goodman placed during admission was the cause of the UTI. ( ) Other urinary cath/device was the cause of the UTI. ( ) UTI, unspecified cause. ( ) Other (Specify): Principal Diagnosis: "that condition established after study, to be chiefly responsible for occasioning the admission of the patient to the hospital for care." Co-Existing Principal Diagnosis: "when two or more diagnoses equally meet the criteria for principal diagnosis as determined by the circumstances of admission, diagnostic work up, and/or therapy provided, and the Alphabetic Index, Tabular List, or another coding guideline does not provide sequencing direction, any one of the diagnoses may be sequenced first." "When the physician has documented what appears to be a current diagnosis in the body of the record, but has not included the diagnosis in the final diagnostic statement, the physician should be asked whether the diagnosis should be added." (Source Coding Clinic 2 QTR90. p3-4) TANI
== END 2021-05-30 09:02 | disposition home or self-care (01) | DRG 177 ==
LOC: ED 22:38 → SUATTDRO 05-22 02:49 → EDINP 05-22 02:49 → 2W 05-23 21:37